=== PATIENT | male | born 2000 | race Caucasian/White ===

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

== ENCOUNTER 2022-07-19 11:47 | Emergency (ER) | payer MEDICAID, SELFPAY ==
[2022-07-19 11:47] VITALS: BP 124/81; PULSE 100; RESP 16; TEMP 37.1; O2SAT 99; BMI 20.2
--- NOTE | 2022-07-19 13:20 | EDS_ITS ---
HPI History of Present Illness Chief Complaint: Back Detail of Chief Complaint: Back pain Informant: patient Narrative Narrative: Patient presents the emergency department complaint of pain in his right upper back by the shoulder blade that start about 4 days ago. Patient does do some lifting at work but does not recall the time of injury and states the pain just kind of started. Patient states the pain is very positional. At rest if he does not move he has no pain. Pain is not pleuritic. Patient rates the pain with movement around 3-7 out of 10. Patient states he has some chronic back pain issues but is never had pain up that high. He denies recent travel or surgery. No history of PE or DVT. Prior similar symptoms: No PFSH PFSH Medical History (Updated 07/19/22 @ 14:[address] Darell Lee, ) Back pain Knee pain Home Medications cyclobenzaprine 10 mg tablet 10 mg PO TID PRN Muscle Spasm #20 TABLETS 07/19/22 [Rx Last Taken Unknown] hydrocodone-acetaminophen 5-325mg 5mg-325mg 1 tab PO Q4H PRN PRN Pain 2 days #10 TABLETS 07/19/22 [Rx Last Taken Unknown] Allergy/AdvReac Type Severity Reaction Status Date / Time latex Allergy Rash Verified 10/16/21 15:24 Social History Smoking Status: Current some day smoker tobacco type: cigarettes ROS ROS ED Review of Systems ROS Unobtainable: other Constitutional Constitutional ED: Reports lethargy; Denies chills, fever(s), sweats or weight loss Eyes Eyes: Denies blurry vision, change in vision or diplopia ENT ENT ED: Denies rhinorrhea or sore throat Cardiovascular Cardiovascular: Denies chest pain, orthopnea or racing heartbeat Respiratory/Chest Respiratory/Chest: Denies cough, dyspnea, dyspnea on exertion, orthopnea or sputum Gastrointestinal Gastrointestinal: Denies abdominal pain, diarrhea, nausea or vomiting Genitourinary Genitourinary ED: Denies dysuria, hematuria or urinary frequency Musculoskeletal Musculoskeletal: Reports back pain; Denies arthralgias, myalgias or neck pain Integumentary Denies abscess, Abrasions or rash Neurologic Neurologic: Denies headache(s) or weakness Psychiatric Psychiatric: Denies anxiety, depression or suicidal thoughts Endocrine Endocrinology: Denies polydipsia, polyphagia or polyuria Hematologic/Lymphatic Hematologic/Lymphatic: Denies easy bleeding, easy bruising or lymphadenopathy Allergic/Immunologic Allergic/Immunologic ED: Denies mouth swelling, tongue swelling or urticaria EXAM Physical Exam Const Vital Signs: 07/19/22 11:47 Temperature 98.8 F Temperature Source Temporal Pulse Rate 100 Respiratory Rate 16 Blood Pressure 124/81 H Blood Pressure Mean 95 Pulse Ox 99 Oxygen Delivery Method Room Air Positive well nourished and well developed General Appearance ED: well developed and NAD HEENT Reports TM's clear and moist mucous membranes normocephalic and atraumatic; Negative for trauma or tenderness Tympanic Membrane ED: Yes TM's clear Eyes PERRL and EOMs intact bilaterally General Eye ED: Negative for pale conjunctiva or scleral icterus Neck no lymphadenopathy, supple and no JVD General: Negative for tenderness Chest Wall inspection of chest normal and palpation of chest normal Chest: Negative for tenderness Resp normal respiratory effort and clear to auscultation bilaterally Effort and Inspection: Negative for respiratory distress or pain with movement Auscultation: Negative for rhonchi, wheezes or diminished lung sounds Cardio regular rate, regular rhythm, S1 normal heart sound, S2 normal heart sound and no murmurs Peripheral Pulses: pulses 2+ throughout GI normal to inspection, nondistended, normoactive bowel sounds, soft to palpation, non-tender, non-distended and no masses Back/Spine no CVA tenderness Back/Spine Narrative: Patient has tenderness to palpation just inferior to the right scapula that reproduces his pain. There is no evidence of erythema or warmth. There is no subcu emphysema. Breath sounds are normal bilaterally. Extremity normal to inspection General Extremety ED: Negative for edema General Extremity: Negative for edema Neuro oriented x3, CN's II-XII intact bilaterally, no sensory deficits noted and gait normal Sensorium / Orientation: awake, alert, oriented to person, oriented to place and oriented to time Motor Exam: strength 5/5 throughout and strength abnormal Psych mental status grossly normal Skin no rashes or lesions noted and no wounds MDM MDM MDM Narrative Medical decision making narrative: Patient with upper back pain x4 days. No trauma recalled. I will obtain a chest x-ray to rule out rib fracture versus pneumothorax. Chest x-ray mitral rotation unremarkable. This point I suspect musculoskeletal etiology for his pain. Patient will be started on Flexeril and a few Gardiner for pain. He will be given some work restrictions. Patient advised to follow-up with his primary care physician within next 5 to 7 days. Radiography Diagnostic Testin view chest x-ray obtained interpreted by myself as no evidence of rib fracture or pneumothorax or acute disease process. Official report from radiology pending. Discharge Plan Triage Chief Complaint: Back ED Provider: Darell Lee Dx/Rx/DC Orders Clinical Impression: Back strain Instructions: ED Back Pain (Acute or Chronic), ED Back Sprain/Strain Prescriptions: New cyclobenzaprine [cyclobenzaprine] 10 mg tablet 10 mg PO TID PRN (Reason: Muscle Spasm) Qty: 20 0RF hydrocodone-acetaminophen [hydrocodone-acetaminophen] 5-325 mg tablet 1 tab PO Q4H PRN PRN (Reason: Pain) 2 Days Qty: 10 0RF Primary Care Provider: Andre Gonzalez Referrals: Andre Gonzalez MD [Primary Care Provider] - 5-7 Days Disposition Disposition: Home, Self Care
--- NOTE | 2022-07-19 13:30 | RAD_ITS ---
STUDY: X-RAY CHEST REASON FOR EXAM: Male, 21 years old. Upper back pain TECHNIQUE: AP portable view of the chest. COMPARISON: None. FINDINGS: The lungs are clear and expanded. There is no demonstrated pleural abnormality. Normal size heart. Normal mediastinum and medina. Normal visualized pulmonary arteries. Normal visualized aortic arch and descending thoracic aorta. Normal visualized thoracic spine. Normal visualized ribs, clavicles, and shoulders. There is no demonstrated abnormality of the visualized soft tissue structures of the upper abdomen. RAD/Chest 1 View (Portable) IMPRESSION: Normal x-ray examination of the chest. Electronically Signed: Benrard Velarde MD at 14:24 EDT ,
== END 2022-07-19 14:41 | disposition home or self-care (01) ==
PROVIDERS: Emergency Provider Emergency Medicine; PCP Pediatrics; Visit Provider Emergency Medicine
DX: S39.012A Strain of muscle, fascia and tendon of lower back, initial encounter (principal); F17.210 Nicotine dependence, cigarettes, uncomplicated; X50.0XXA Overexertion from strenuous movement or load, initial encounter
CPT/HCPCS: 71045; 99282

== ENCOUNTER 2023-02-19 18:43 | Emergency (ER) | payer MEDICAID, SELFPAY ==
[2023-02-19 18:44] VITALS: BP 113/74; PULSE 87; RESP 14; TEMP 36.8; O2SAT 98; BMI 19.5
--- NOTE | 2023-02-19 19:15 | RAD_ITS ---
STUDY: X-RAY - RIGHT WRIST REASON FOR EXAM: Male, 22 years old. injury TECHNIQUE: 3 view(s) of the wrist were obtained. COMPARISON: None. FINDINGS: Normal visualized distal radius and ulna. Normal radiocarpal articulation. Normal distal radioulnar articulation. Normal carpal bones. Normal carpal articulations. Normal carpometacarpal articulation of the thumb. Normal second through fifth carpometacarpal articulations. Normal visualized metacarpal bones. The soft tissue structures are unremarkable. RAD/Wrist min 3 Views IMPRESSION: Normal x-ray examination of the wrist. Electronically Signed: Abdon Thornton MD at 20:15 EST ,
--- NOTE | 2023-02-19 19:47 | EDS_ITS ---
HPI History of Present Illness Chief Complaint: Upper Extremity Injury Informant: patient Onset/Context/Timing Onset: Today Narrative Narrative: Healthy 22-year-old male states he was working on brakes on his car when the ratchet accidentally slipped and his right hand smacked against the fender very hard. He is having pain in the ulnar aspect of his right wrist since then. He is right-hand dominant. Incidentally he states 4 days ago the exact same thing happened. [facility] Medical History (Updated 02/19/23 @ 20:[address] Bernard Celis MD) Back pain Knee pain Home Medications NK 02/19/23 [History Last Taken Unknown] Allergy/AdvReac Type Severity Reaction Status Date / Time latex Allergy Rash Verified 02/19/23 18:44 Social History Smoking Status: Current some day smoker tobacco type: cigarettes ROS ROS ED Constitutional Constitutional ED: Denies chills or fever(s) Musculoskeletal Musculoskeletal: Reports extremity pain; Denies neck pain Integumentary Denies Abrasions, rash or wounds Neurologic Neurologic: Denies paresthesias or weakness EXAM Physical Exam Const Vital Signs: 02/19/23 18:44 Temperature 98.2 F Temperature Source Temporal Pulse Rate 87 Respiratory Rate 14 Blood Pressure 113/74 Blood Pressure Mean 87 Pulse Ox 98 Oxygen Delivery Method Room Air Positive well nourished and well developed General Appearance ED: well developed and NAD Neck full ROM and supple Back/Spine normal ROM and normal to inspection Extremity Extremity Narrative: Limited range of motion of the wrist due to pain. No deformities or swelling or signs of trauma. Mild tenderness at the distal ulna, as well as the ulnar aspect of the carpus dorsally and the base of the fourth metacarpal. No on the radial side of the wrist including the snuffbox. Neuro oriented x3, no focal motor deficits and no sensory deficits noted Sensorium / Orientation: alert Psych mental status grossly normal and thought process normal Skin no wounds Rashes: no rashes MDM MDM MDM Narrative Medical decision making narrative: Right wrist x-rays 3 views my interpretation negative for acute fracture or dislocation. Radiology in agreement. Patient reassured, offered a Velcro wrist splint which he accepted, as well as a dose of Naprosyn and given a work excuse for the morning. Discharge Plan Triage Chief Complaint: Upper Extremity Injury ED Provider: Bernard Celis Dx/Rx/DC Orders Clinical Impression: Contusion of right wrist Instructions: Bone Contusion Prescriptions: No Action NK Stand Alone Forms: ED Work / School Excuse Primary Care Provider: Care Physician,Sandhya Primary Referrals: Andre Gonzalez MD [Non-Staff] - As Needed Disposition Disposition: Home, Self Care
[2023-02-19] MEDS: Naproxen 250 MG Tablet 500 MG PO (20:42)
--- OUTSIDE RECORDS SUMMARY | 2023-02-19 20:53 | XMS RPT_ITS | CCD ---
Author Name Unknown Address [address] [facility] [place], [address] [place] [address] Organization [facility] Care Team Providers Care Manager Spa Name Role Phone LOLLYRAMAKRISHNA CARLOS Unavailable Unavailable MAGDA ASHLEY Unavailable Unavailable NO PRIMARY CARE, Unavailable Unavailable Andre Holm MD Primary Care Provider Andre Holm MD Primary Care Provider Andre Holm MD Primary Care Provider Unavailable Primary Care Provider UnavailKarine Vázquez Referring Unavailable KATE MUNOZ Attending Unavailable ANDRE HOLM Primary Care Unavailable ANDRE HOLM Primary Care Unavailable WANDA HAILE Attending Unavailable DORETHA GOLDEN Referring Unavailable Karine MITCHELL Attending Unavailable ANDRE HOLM Primary Care Unavailable Karine MITCHELL Referring Unavailable KATE MUNOZ Attending Unavailable Karine MITCHELL Referring Unavailable KATE MUNOZ Attending Unavailable Karine MITCHELL Referring Unavailable KATE MUNOZ Attending Unavailable KATE MUNOZ Attending Unavailable KATE MUNOZ Referring Unavailable KATE MUNOZ Attending Unavailable Karine MITCHELL Referring Unavailable Allergies Allergy Classification Reported Allergen(s) Allergy Type Date of Onset Reaction(s) Facility (18 sources) Latex; Translations: [LATEX] Drug Intolerance 0 Rash [facility] Work Phone: Medications Current Medications Medication Drug Class(es) Dates Sig (Normalized) Sig (Original) amoxicillin 500 mg oral capsule (2 sources) Penicillin-class Antibacterial Start: 08-20-2021 End: 08-30-2021 take 1 capsule by mouth twice daily amoxicillin (POLYMOX, AMOXIL) 500 mg capsule Take 1 capsule by mouth twice daily for 10 days. 20 capsule 0 08/20/2021 08/30/2021 Active Completed/Discontinued Medications Medication Drug Class(es) Dates Sig (Normalized) Sig (Original) benzonatate 100 mg oral capsule (10 sources) Non-narcotic Antitussive Start: 01-21-2022 take 1 capsule by mouth three times daily as needed for cough benzonatate (TESSALON PERLES) 100 mg capsule Indications: Viral URI Take 1 capsule by mouth three times daily as needed for cough. 30 capsule 0 01/21/2022 Active Problems Active Problems Problem Classification Problem Date Documented Date Episodic/Chronic Anxiety disorders (17 sources) Generalized anxiety disorder; Translations: [Generalized anxiety disorder] Onset: 01-28-2018 01-28-2018 Chronic Attention-deficit, conduct, and disruptive behavior disorders (17 sources) Attention deficit hyperactivity disorder, combined type; Translations: [Attention-deficit hyperactivity disorder, combined type] Onset: 12-01-2007 04-19-2015 Chronic Fever of unknown origin (2 sources) Fever; Translations: [Fever, unspecified] Episodic Mood disorders (17 sources) Depressive disorder; Translations: [Depression] Onset: 01-28-2018 01-28-2018 Chronic Nausea and vomiting (3 sources) Nausea; Translations: [Nausea] Episodic Noninfectious gastroenteritis (1 source) Gastroenteritis; Translations: [Noninfective gastroenteritis and colitis, unspecified] Episodic Other nervous system disorders (2 sources) Other chronic pain; Translations: [Chronic pain of both knees] Onset: 12-05-2020 Chronic Other non-traumatic joint disorders (2 sources) Shoulder pain; Translations: [Pain in left shoulder] Episodic Other upper respiratory infections (7 sources) Streptococcal sore throat; Translations: [Streptococcal pharyngitis] Episodic Residual codes; unclassified (1 source) Influenza-like symptoms; Translations: [Other general symptoms and signs] Episodic Unclassified (1 source) Chronic midline low back pain without sciatica; Translations: [Chronic midline low back pain without sciatica] Onset: 12-05-2020 Unclassified (1 source) Establish Care Onset: 09-14-2022 Viral infection (3 sources) Viral disease; Translations: [Viral infection, unspecified] Episodic Past or Other Problems Problem Classification Problem Date Documented Date Episodic/Chronic Allergic reactions (17 sources) Environmental allergy; Translations: [Other allergy status, other than to drugs and biological substances] Onset: 07-25-2011 07-25-2011 Episodic Other non-traumatic joint disorders (18 sources) Pain in unspecified knee; Translations: [Pain in joint, lower leg] Onset: 12-05-2020 12-05-2020 Episodic Other non-traumatic joint disorders (8 sources) Joint laxity; Translations: [Flail joint, unspecified joint] Onset: 09-25-2022 09-25-2022 Episodic Other non-traumatic joint disorders (1 source) Flail joint, unspecified joint; Translations: [Joint laxity] Onset: 09-25-2022 Episodic Other non-traumatic joint disorders (1 source) Pain in right knee; Translations: [Chronic pain of both knees] Onset: 12-05-2020 Episodic Other non-traumatic joint disorders (1 source) Pain in left knee; Translations: [Chronic pain of both knees] Onset: 12-05-2020 Episodic Other non-traumatic joint disorders (1 source) Pain in left shoulder; Translations: [Acute pain of left shoulder] Onset: 06-08-2022 Episodic Spondylosis; intervertebral disc disorders; other back problems (19 sources) Chronic back pain ; Translations: [Dorsalgia, unspecified] Onset: 12-05-2020 12-05-2020 Episodic Results Test Name Value Interpretation Reference Range Facil ity Vital Signs Date Time Vital Sign Value Performing Clinician Yimi gould 01-18-2023 13:24-0500 Body temperature 98.4 [degF] Gloria Patten APRN.CNP Work Phone: [facility] 01-18-2023 13:24-0500 Body weight 63.32 kg Gloria Patten [employer]HER[employer] Work Phone: [facility] 01-18-2023 13:24-0500 Diastolic blood pressure 69 mm[Hg] Gloria Patten [employer]CA Work Phone: [facility] 01-18-2023 13:24-0500 Heart rate 84 /min Gloria Patten APRNGIANLUCA Work Phone: [facility] 01-18-2023 13:24-0500 Respiratory rate 18 /min Gloria Patten APRNGIANLUCA Work Phone: [facility] 01-18-2023 13:24-0500 SaO2% (BldA) [Mass fraction] 97 % Gloria Patten BUTTON PUSHER.MECHANICAL SYSTEMS ENGINEER Work Phone: [facility] 01-18-2023 13:24-0500 Systolic blood pressure 100 mm[Hg] Gloria Patten BUTTON PUSHER.MECHANICAL SYSTEMS ENGINEER Work Phone: [facility] 12-22-2022 09:08-0400 Body temperature 98.71 [degF] Shonna Praisler-Wood BUTTON PUSHER.MECHANICAL SYSTEMS ENGINEER Work Phone: [facility] 12-22-2022 09:08-0400 Body weight 61.96 kg Shonna Praisler-Wood BUT[employer] PUSHER.MECHANICAL SYSTEMS ENGINEER Work Phone: [facility] 12-22-2022 09:08-0400 Diastolic blood pressure 64 mm[Hg] Shonna Praisler-Wood BUTTON PUSHER.MECHANICAL SYSTEMS ENGINEER Work Phone: [facility] 12-22-2022 09:08-0400 Heart rate 104 /min Shonna Praisler-Wood [employer] PUSHER.MECHANICAL SYSTEMS ENGINEER Work Phone: [facility] 12-22-2022 09:08-0400 Respiratory rate 16 /min Shonna Praisler-Wood BUT[employer] PUSHER.MECHANICAL SYSTEMS ENGINEER Work Phone: [facility] 12-22-2022 09:08-0400 SaO2% (BldA) [Mass fraction] 96 % Shonna Praisler-Wood BUTTON PUSHER.MECHANICAL SYSTEMS ENGINEER Work Phone: [facility] 12-22-2022 09:08-0400 Systolic blood pressure 108 mm[Hg] Shonna Praisler-Wood BUTTON PUSHER.MECHANICAL SYSTEMS ENGINEER Work Phone: [facility] 12-08-2022 08:50-0400 Body temperature 98.6 [degF] Jakob Vicky BUT[employer] PUSHER.MECHANICAL SYSTEMS ENGINEER Work Phone: [facility] 12-08-2022 08:50-0400 Body weight 61.24 kg Jakob Perry [employer] PUSHER.MECHANICAL SYSTEMS ENGINEER Work Phone: [facility] 12-08-2022 08:50-0400 Diastolic blood pressure 76 mm[Hg] Jakob Belebury [employer]TON PUSHER.MECHANICAL SYSTEMS ENGINEER Work Phone: [facility] 12-08-2022 08:50-0400 Heart rate 93 /min Jakob Luxgama BUTTON PUSHER.MECHANICAL SYSTEMS ENGINEER Work Phone: [facility] 12-08-2022 08:50-0400 SaO2% (BldA) [Mass fraction] 98 % Jakob Perry BUT[employer] PUSHER.MECHANICAL SYSTEMS ENGINEER Work Phone: [facility] 12-08-2022 08:50-0400 Systolic blood pressure 110 mm[Hg] Jakob Perry BUTTON PUSHER.MECHANICAL SYSTEMS ENGINEER Work Phone: [facility] 11-03-2022 14:00-0400 Body temperature 97.9 [degF] Doretha Golden BUTTON PUSHER.MECHANICAL SYSTEMS ENGINEER Work Phone: [facility] 11-03-2022 14:00-0400 Body weight 62.6 kg Doretha Golden [employer] PUSHER.MECHANICAL SYSTEMS ENGINEER Work Phone: [facility] 11-03-2022 14:00-0400 Diastolic blood pressure 68 mm[Hg] Doretha Golden BUTTON PUSHER.MECHANICAL SYSTEMS ENGINEER Work Phone: [facility] 11-03-2022 14:00-0400 Heart rate 76 /min Doretha Golden BUT[employer] PUSHER.MECHANICAL SYSTEMS ENGINEER Work Phone: [facility] 11-03-2022 14:00-0400 Respiratory rate 16 /min Doretha Golden BUT[employer] PUSHER.MECHANICAL SYSTEMS ENGINEER Work Phone: [facility] 11-03-2022 14:00-0400 SaO2% (BldA) [Mass fraction] 96 % Doretha Golden BUT[employer] PUSHER.MECHANICAL SYSTEMS ENGINEER Work Phone: [facility] 11-03-2022 14:00-0400 Systolic blood pressure 110 mm[Hg] Doretha Golden BUT[employer] PUSHER.MECHANICAL SYSTEMS ENGINEER Work Phone: [facility] 07-07-2022 08:03-0400 Body temperature 98.8 [degF] Tamika Wheeler BUT[employer] PUSHER.MECHANICAL SYSTEMS ENGINEER Work Phone: [facility] 07-07-2022 08:03-0400 Body weight 63.5 kg Tamika Liam [employer] P[employer]HER.MECHANICAL SYSTEMS ENGINEER Work Phone: [facility] 07-07-2022 08:03-0400 Diastolic blood pressure 60 mm[Hg] Tamika Liam BUT[employer] PUSHER.MECHANICAL SYSTEMS ENGINEER Work Phone: [facility] 07-07-2022 08:03-0400 Heart rate 80 /min Tamika Liam [employer] PUSHER.MECHANICAL SYSTEMS ENGINEER Work Phone: [facility] 07-07-2022 08:03-0400 Respiratory rate 16 /min Tamika Liam [employer] PUSHER.MECHANICAL SYSTEMS ENGINEER Work Phone: [facility] 07-07-2022 08:03-0400 SaO2% (BldA) [Mass fraction] 97 % Tamika Liam BUT[employer] PUSHER.MECHANICAL SYSTEMS ENGINEER Work Phone: [facility] 07-07-2022 08:03-0400 Systolic blood pressure 118 mm[Hg] Tamika Liam BUT[employer] PUSHER.MECHANICAL SYSTEMS ENGINEER Work Phone: [facility] 06-08-2022 09:08-0400 Body temperature 98.29 [degF] Wanda Haile PA-C Work Phone: [facility] 06-08-2022 09:08-0400 Body weight 63.21 kg Wanda Haile PA-C Work Phone: [facility] 06-08-2022 09:08-0400 Heart rate 106 /min Wanda Haile PA-C Work Phone: [facility] 06-08-2022 09:08-0400 Respiratory rate 18 /min Wanda Haile PA-C Work Phone: [facility] 06-06-2022 14:00-0400 Body temperature 99.1 [degF] Jakob Perry BUT[employer] PUSHER.MECHANICAL SYSTEMS ENGINEER Work Phone: [facility] 06-06-2022 14:00-0400 Body weight 61.24 kg Jakob Perry BUT[employer] PUSHER.MECHANICAL SYSTEMS ENGINEER Work Phone: [facility] 06-06-2022 14:00-0400 Diastolic blood pressure 68 mm[Hg] Jakob Pendlebury [employer] PUSHER.MECHANICAL SYSTEMS ENGINEER Work Phone: [facility] 06-06-2022 14:00-0400 Heart rate 108 /min Jakob Pendlebury [employer] PUSHER.MECHANICAL SYSTEMS ENGINEER Work Phone: [facility] 06-06-2022 14:00-0400 Respiratory rate 16 /min Jakob Pendlebury [employer] PUSHER.MECHANICAL SYSTEMS ENGINEER Work Phone: [facility] 06-06-2022 14:00-0400 SaO2% (BldA) [Mass fraction] 96 % Jakob Pendlebury BUT[employer] PUSHER.MECHANICAL SYSTEMS ENGINEER Work Phone: [facility] 06-06-2022 14:00-0400 Systolic blood pressure 102 mm[Hg] Jakob Pendlebury [employer] PUSHER.MECHANICAL SYSTEMS ENGINEER Work Phone: [facility] 04-17-2022 09:59-0500 Body temperature 100.6 [degF] Shonna Praisler-Wood BUT[employer] PUSHER.MECHANICAL SYSTEMS ENGINEER Work Phone: [facility] 04-17-2022 09:59-0500 Body weight 60.78 kg Shonna Praisler-Wood BUT[employer] PUSHER.MECHANICAL SYSTEMS ENGINEER Work Phone: [facility] 04-17-2022 09:59-0500 Diastolic blood pressure 76 mm[Hg] Shonna Praisler-Wood BUT[employer] PUSHER.MECHANICAL SYSTEMS ENGINEER Work Phone: [facility] 04-17-2022 09:59-0500 Heart rate 114 /min Shonna Praisler-Wood [employer] PUSHER.MECHANICAL SYSTEMS ENGINEER Work Phone: [facility] 04-17-2022 09:59-0500 Respiratory rate 20 /min Shonna Praisler-Wood BUT[employer] PUSHER.MECHANICAL SYSTEMS ENGINEER Work Phone: [facility] 04-17-2022 09:59-0500 SaO2% (BldA) [Mass fraction] 98 % Shonna Praisler-Wood BUT[employer] PUSHER.MECHANICAL SYSTEMS ENGINEER Work Phone: [facility] 04-17-2022 09:59-0500 Systolic blood pressure 122 mm[Hg] Shonna Praisler-Wood BUT[employer] PUSHER.MECHANICAL SYSTEMS ENGINEER Work Phone: [facility] 01-21-2022 14:32-0500 Body temperature 98.2 [degF] Shonna Praisler-Wood [employer] PUSHER.MECHANICAL SYSTEMS ENGINEER Work Phone: [facility] 01-21-2022 14:32-0500 Body weight 67.04 kg Shonna Praisler-Wood BUT[employer] PUSHER.MECHANICAL SYSTEMS ENGINEER Work Phone: [facility] 01-21-2022 14:32-0500 Diastolic blood pressure 72 mm[Hg] Shonna Praisler-Wood BUT[employer] PUSHER.MECHANICAL SYSTEMS ENGINEER Work Phone: [facility] 01-21-2022 14:32-0500 Heart rate 102 /min Shonna Praisler-Wood BUT[employer] PUSHER.MECHANICAL SYSTEMS ENGINEER Work Phone: [facility] 01-21-2022 14:32-0500 Respiratory rate 21 /min Shonna Praisler-Wood BUT[employer] PUSHER.MECHANICAL SYSTEMS ENGINEER Work Phone: [facility] 01-21-2022 14:32-0500 SaO2% (BldA) [Mass fraction] 98 % Shonna Praisler-Wood BUT[employer] PUSHER.MECHANICAL SYSTEMS ENGINEER Work Phone: [facility] 01-21-2022 14:32-0500 Systolic blood pressure 114 mm[Hg] Shonna Praisler-Wood BUT[employer] PUSHER.MECHANICAL SYSTEMS ENGINEER Work Phone: [facility] 10-29-2021 18:33-0400 Body temperature 99.61 [degF] Jasper Coto MD Work Phone: [facility] 10-29-2021 18:33-0400 Body weight 63.96 kg Jasper Coto MD Work Phone: [facility] 10-29-2021 18:33-0400 Diastolic blood pressure 68 mm[Hg] Jasper Coto MD Work Phone: [facility] 10-29-2021 18:33-0400 Heart rate 98 /min Jasper Coto MD Work Phone: [facility] 10-29-2021 18:33-0400 Respiratory rate 16 /min Jasper Coto MD Work Phone: [facility] 10-29-2021 18:33-0400 SaO2% (BldA) [Mass fraction] 98 % Jasper Coto MD Work Phone: [facility] 10-29-2021 18:33-0400 Systolic blood pressure 106 mm[Hg] Jasper Coto MD Work Phone: [facility] 08-20-2021 12:14-0400 Body temperature 98.01 [degF] Gloria Patten BUT[employer] PUSHER.MECHANICAL SYSTEMS ENGINEER Work Phone: [facility] 08-20-2021 12:14-0400 Body weight 64.23 kg Gloria Patten BUTTON PUSHER.MECHANICAL SYSTEMS ENGINEER Work Phone: [facility] 08-20-2021 12:14-0400 Diastolic blood pressure 72 mm[Hg] Gloria Patten BUTTON PUSHER.MECHANICAL SYSTEMS ENGINEER Work Phone: [facility] 08-20-2021 12:14-0400 Heart rate 65 /min Gloria Patten BUTTON PUSHER.MECHANICAL SYSTEMS ENGINEER Work Phone: [facility] 08-20-2021 12:14-0400 Respiratory rate 21 /min Gloria Patten BUT[employer] PUSHER.MECHANICAL SYSTEMS ENGINEER Work Phone: [facility] 08-20-2021 12:14-0400 SaO2% (BldA) [Mass fraction] 99 % Gloria Patten BUT[employer] PUSHER.MECHANICAL SYSTEMS ENGINEER Work Phone: [facility] 08-20-2021 12:14-0400 Systolic blood pressure 118 mm[Hg] Gloria Patten BUT[employer] PUSHER.MECHANICAL SYSTEMS ENGINEER Work Phone: [facility] Encounters Encounter Date Encounter Type Care Provider Facility Start: 02-16-2023 End: 02-16-2023 [facility] Facility:[facility] Start: 02-09-2023 End: 02-09-2023 ambulatory [facility] Facility:[facility] Start: 01-19-2023 End: 01-19-2023 [facility] Facility:[facility] Start: 01-18-2023 End: 01-18-2023 ambulatory NA MITCHELL Facility:[facility] Start: 01-18-2023 End: 01-18-2023 Patient encounter procedure Gloria Patten APRN.MECHANICAL SYSTEMS ENGINEER Work Phone: [facility] Procedures Date Procedure Procedure Detail Performing Clinician Start: 01-18-2023 COVID & INFLUENZA A/ B & RSV NAAT, ROUTINE Gloria Patten APRN.MECHANICAL SYSTEMS ENGINEER Work Phone: Start: 12-08-2022 STREP A MOLECULAR (POC) Jakob Perry [employer] P[employer]HER.MECHANICAL SYSTEMS ENGINEER Work Phone: Start: 11-03-2022 STREP A MOLECULAR (POC) Charlotte Patel BUT[employer] PUSHER.MECHANICAL SYSTEMS ENGINEER Work Phone: Start: 07-07-2022 STREP A MOLECULAR (POC) Tamika Wheeler BUT[employer] PUSHER.MECHANICAL SYSTEMS ENGINEER Work Phone: Start: 04-17-2022 INFLUENZA A&B MOLECU LAR (POC) [facility] Provider Start: 04-17-2022 STREP A MOLECULAR (POC) [facility] Provider Start: 01-21-2022 STREP A MOLECULAR (POC) Gloria Patten [employer] PUSHER.MECHANICAL SYSTEMS ENGINEER Work Phone: Start: 08-20-2021 STREP A MOLECULAR (POC) Gloria Patten [employer] PUSHER.MECHANICAL SYSTEMS ENGINEER Work Phone: Start: 06-04-2020 Adult depression screening assessment Gloria Patten APRN.MECHANICAL SYSTEMS ENGINEER Work Phone: Plan of Treatment Date Care Activity Detail Author Start: 07-23-2024 Urine microalbumin profile [facility] Start: 09-15-2023 Meningococcal B Vacc ine: Consider Based On Risk (1 of 2 - Patient Seeks Protection) Meningococcal B Vaccine: Consider Based On Risk (1 of 2 - Patient Seeks Protection) [facility] Immunizations Immunization Date Immunization Notes Care Provider Ashlee villalba 01-29-2016 Human Papillomavirus 9-valent vaccine Gloria Patten APRN.MECHANICAL SYSTEMS ENGINEER Work Phone: [facility] Work Phone: 11-15-2015 influenza, injectabl e, quadrivalent, contains preservative Gloria Riosgs BUTTON PUSHER.[facility] Work Phone: [facility] Work Phone: 11-15-2015 influenza virus vacc ine, unspecified formulation Doretha Chico BUTTON PUSHER.MECHANICAL SYSTEMS ENGINEER Work Phone: [facility] 09-16-2015 Human Papillomavirus 9-valent vaccine Gloria Patten BUT[employer] PUSHER.[facility] Work Phone: [facility] Work Phone: 07-23-2014 human papilloma viru s vaccine, quadrivalent Gloria Patten BUTTON PUSHER.[facility] Work Phone: [facility] 07-23-2014 meningococcal oligosaccharide (groups A, C, Y and W-135) diphtheria toxoid conjugate vaccine (MCV4O) Gloria Patten BUTTON PUSHER.[facility] Work Phone: [facility] 07-23-2014 tetanus toxoid, redu madalyn diphtheria toxoid, and acellular pertussis vaccine, adsorbed Gloria Patten BUTTON PUSHER.[facility] Work Phone: [facility] 01-10-2013 influenza virus vacc ine, live, attenuated, for intranasal use Gloria Patten BUTTON PUSHER.[facility] Work Phone: [facility] 01-24-2011 influenza virus vacc ine, live, attenuated, for intranasal use Gloria Patten BUTTON PUSHER.[facility] Work Phone: [facility] Work Phone: 01-07-2010 influenza virus vacc ine, live, attenuated, for intranasal use Gloria Patten BUTTON PUSHER.[facility] Work Phone: [facility] Work Phone: 01-08-2009 novel influenza-H1N1 -09, all formulations Gloria Patten BUTTON PUSHER.[facility] Work Phone: [facility] 11-24-2008 influenza virus vacc ine, live, attenuated, for intranasal use Gloria Patten BUTTON PUSHER.[facility] Work Phone: [facility] Work Phone: 12-01-2007 diphtheria, tetanus toxoids and acellular pertussis vaccine Gloria Patten BUTTON PUSHER.MECHANICAL SYSTEMS ENGINEER Work Phone: [facility] Work Phone: 12-01-2007 hepatitis A vaccine, unspecified formulation Gloria Patten BUTTON PUSHER.MECHANICAL SYSTEMS ENGINEER Work Phone: [facility] Work Phone: 12-01-2007 measles, mumps and rubella virus vaccine Gloria Patten BUTTON PUSHER.MECHANICAL SYSTEMS ENGINEER Work Phone: [facility] Work Phone: 12-01-2007 poliovirus vaccine, inactivated Gloria Earline BUTTON PUSHER.[facility] Work Phone: [facility] Work Phone: 11-04-2006 hepatitis A vaccine, unspecified formulation Gloria Earline BUTTON PUSHER.MECHANICAL SYSTEMS ENGINEER Work Phone: [facility] 11-04-2006 varicella virus vaccine Jenny ica Patten BUTTON PUSHER.MECHANICAL SYSTEMS ENGINEER Work Phone: [facility] 03-17-2004 diphtheria, tetanus toxoids and acellular pertussis vaccine Gloria Patten BUTTON PUSHER.[facility] Work Phone: [facility] Work Phone: 03-17-2004 haemophilus influenz ae type b vaccine, HbOC conjugate Gloriaisa Patten BUTTON PUSHER.MECHANICAL SYSTEMS ENGINEER Work Phone: [facility] Work Phone: 12-03-2003 measles, mumps and rubella virus vaccine Gloria Patten BUTTON PUSHER.MECHANICAL SYSTEMS ENGINEER Work Phone: [facility] Work Phone: 12-03-2003 pneumococcal conjuga te vaccine, 7 valent Gloriaisa Patten BUTTON PUSHER.MECHANICAL SYSTEMS ENGINEER Work Phone: [facility] Work Phone: 12-03-2003 varicella virus vaccine Jenny ica Patten BUTTON PUSHER.MECHANICAL SYSTEMS ENGINEER Work Phone: [facility] Work Phone: 08-28-2003 diphtheria, tetanus toxoids and acellular pertussis vaccine Gloria Patten BUTTON PUSHER.MECHANICAL SYSTEMS ENGINEER Work Phone: [facility] Work Phone: 08-28-2003 haemophilus influenz ae type b vaccine, HbOC conjugate Gloria Patten BUTTON PUSHER.[facility] Work Phone: [facility] Work Phone: 08-28-2003 hepatitis B vaccine, pediatric or pediatric/adolescent dosage Gloria Patten BUTTON PUSHER.[facility] Work Phone: [facility] Work Phone: 08-28-2003 poliovirus vaccine, inactivated Gloria Patten BUTTON PUSHER.[facility] Work Phone: [facility] Work Phone: 04-06-2003 diphtheria, tetanus toxoids and acellular pertussis vaccine Gloria Patten BUTTON PUSHER.[facility] Work Phone: [facility] Work Phone: 04-06-2003 haemophilus influenz ae type b vaccine, HbOC conjugate Gloria Patten BUTTON PUSHER.[facility] Work Phone: [facility] Work Phone: 04-06-2003 pneumococcal conjuga te vaccine, 7 valent Gloria Patten BUTTON PUSHER.[facility] Work Phone: [facility] Work Phone: 04-06-2003 poliovirus vaccine, inactivated Gloria Patten BUTTON PUSHER.[facility] Work Phone: [facility] Work Phone: 01-01-2003 diphtheria, tetanus toxoids and acellular pertussis vaccine Gloria Patten BUTTON PUSHER.[facility] Work Phone: [facility] Work Phone: 01-01-2003 haemophilus influenz ae type b vaccine, HbOC conjugate Gloria Patten BUTTON PUSHER.[facility] Work Phone: [facility] Work Phone: 01-01-2003 pneumococcal conjuga te vaccine, 7 valent Gloria Patten BUTTON PUSHER.[facility] Work Phone: [facility] Work Phone: 01-01-2003 poliovirus vaccine, inactivated Gloria Patten BUTTON PUSHER.MECHANICAL SYSTEMS ENGINEER Work Phone: [facility] Work Phone: 2002 hepatitis B vaccine, pediatric or pediatric/adolescent dosage Gloria Patten BUTTON PUSHER.MECHANICAL SYSTEMS ENGINEER Work Phone: [facility] Work Phone: 2002 hepatitis B vaccine, pediatric or pediatric/adolescent dosage Gloria Patten BUTTON PUSHER.MECHANICAL SYSTEMS ENGINEER Work Phone: [facility] Work Phone: Payers Date Payer Category Payer Medicaid [id number] 2020 Medicaid [facility] MEDICAID [facility] PL[facility] MEDICAID [id number] 2020-Present [phone] [address] [place] [address] Medicaid [id number] 2020 Medicaid [id number] Unknown [id number] Social History Date Type Detail Facility Start: 2016 End: 10-31-2021 Tobacco smoking status NHIS Never smoked tobacco [facility] Start: 08-20-2021 End: 01-18-2023 Alcohol intake Current non-drinker of alcohol (finding) [facility] Start: 06-17-2015 End: 10-31-2021 Tobacco Comment 3 smokers in the home [facility] Start: 2002 Sex Assigned At Not on file [facility] Start: 08-10-2021 End: 01-21-2022 Exposure to SARS-CoV-2 (event) Not sure [facility] History of tobacco use Passive smoker [facility] Work Phone: Start: 2016 End: 09-14-2022 Tobacco use and exposure Smokeless tobacco non-user [facility] Work Phone: Start: 04-17-2022 End: 09-14-2022 Tobacco smoking status NHIS Smokes tobacco daily [facility] History of tobacco use Cigarette Smoker [facility] Start: 09-14-2022 End: 01-18-2023 Cigarettes smoked current (pack per day) - Reported 0.3 [facility] Start: 09-14-2022 End: 09-16-2022 Tobacco use panel [facility] National Score (1-10 0), lower number is lower risk 47 [facility] Start: 09-14-2022 Tobacco Comment 6 cigarettes a day [facility] Clinical Notes 07-15-2015 to 02-16-2023 Gloria Patten, SAUD.MECHANICAL SYSTEMS ENGINEER - 01/18/2023 1:29 PM Kate Hicks PT - 01/05/2023 10:38 AM Kate Hicks PT - 01/05/2023 10:03 AM ESTPatient InstructionsPatient InstructionsPatient Instructions Note Date & Type Note Facility 02-16-2023 Note HNO ID: [id number] Author: Kate Munoz PT Service: ? Author Type: Physical Therapist Type: Progress Notes Filed: 02/16/2023 5:48 PM Note Text: Episode Visit Count: 6 Therapist That Will Accept/Oversee The Plan Of Care: Kate Munoz Start of Care Date: 09/25/22 Onset Date: 09/25/08 Plan of Care Certification Date: 01/12/23 Next Certification Due Date: 02/16/23 Patient Identified by Name and Date of : Yes REHABILITATION AND SPORTS THERAPY PHYSICAL THERAPY DISCONTINUANCE OF CARE PLAN OF CARE UPDATE: Assessment: Jose Mcintosh is discontinued from Physical Therapy services due to Patient/Clinician mutual decision to discontinue current plan of care.. Patient was seen for 6 visits from Start of Care Date: 09/25/22 to 02/16/2023 and treatment included: Therapeutic exercise, Manual therapy, and Patient/Family/Caregiver Education. Goals updated 02/16/2023 Goals for Episode of Care: created on through 11/20/22 [place] in home exercise program. - Met so far Perform standing, walking, and stair negotiation without pain without Pain. - Progressed Increase ROM of LB to WNL without pain for improved QOL and ease of completing ADL's - MET Pt will be able to explained with central sensitivity is and how it is managed in 4 weeks or less - Progressing, will continue SUBJECTIVE: The colder weather can negatively affect how he feels. Overall the exercises are helpful. Pain: Pain Pain Level: 1 Pain Location: Leg - Left Pain Level 2: 0 Pain Location 2: Low Back/Lumbar Spine- Midline PROMIS Scales Higher is Better 12/28/2022 Phys Func - Score 38 (moderate dysfunction) Phys Func - Percentile 12% Self-Eff Symptom - Score 32 (Low) Self-Eff Symptom - Percentile 4% T-scores: mean of general population = 50. 5 points is clinically meaningfully difference Percentiles provide an indication of how the patient's score ranks in relation to the general population. Higher percentile rankings indicate better function/quality of life. 50th percentile is the average of the general population and indicates half of respondents had a worse score. OBJECTIVE MEASURES WITH LEVEL OF FUNCTION: Lumbar Spine AROM Lumbar Flexion: Normal Lumbar Extension: Normal Lumbar R Side-Bend: Normal Lumbar L Side-Bend: Normal Lumbar R Rotation: Normal Lumbar L Rotation: Normal LE AROM R LE AROM: WNL L LE AROM: WNL LE Flexibility Flexibility: Hamstring Flexibility R Hamstring Flexibility: WNL L Hamstring Flexibility: WNL LE Strength R LE Strength: Grossly 4+/5 L LE Strength: Grossly 4+/5 R Knee Extension (L3): 5/5 L Knee Extension (L3): 5/5 TREATMENT: Therapeutic Exercise: 1: All objective measures taken this session 2: Squats 2 x 20 with band around knees (purpke) 3: Sidestepping purple TB to fatigue x 2 sets each side 4: Standing resisted rotations pruple and pink TB x 10 each side Skilled Intervention: Patient was educated in proper exercise technique and purpose for exercises. Correct performance of therapeutic exercises was facilitated with verbal and visual cuing. Billing Therapeutic Exercise Treatment Minutes: 26 Skilled Treatment Time Minutes (timed and untimed codes): 26 Total Session Time (minutes): 26 Session Start Time : 1722 Session Stop Time : 1748 Kate Munoz PT [facility] 02-09-2023 Note HNO ID: [id number] Author: Kate Munoz PT Service: ? Author Type: Physical Therapist Type: Progress Notes Filed: 02/09/2023 5:59 PM Note Text: Episode Visit Count: 5 Therapist That Will Accept/Oversee The Plan Of Care: Kate Munoz Start of Care Date: 09/25/22 Onset Date: 09/25/08 Plan of Care Certification Date: 01/12/23 Next Certification Due Date: 02/16/23 Patient Identified by Name and Date of : Yes REHABILITATION AND SPORTS THERAPY PHYSICAL THERAPY TREATMENT NOTE ASSESSMENT: Jose Mcintosh tolerated the session with expected muscle soreness. He demonstrated difficulty with some lumbar pinching during paloff exercise. The patient will continue to benefit from ongoing skilled physical therapy for reassessment by supervising therapist. PLAN FOR NEXT VISIT: PN SUBJECTIVE: The R knee can hurt after the exercises have been performed. The back and knees feels better overall after doing PT so far. Pain: Pain Pain Level: 1 Pain Location: Knee - Right Additional Pain Information : Location 2 Pain Level 2: 0 Pain Location 2: Low Back/Lumbar Spine- Midline, Low Back/Lumbar Spine - Right OBJECTIVE MEASURES WITH LEVEL OF FUNCTION: Lumbar rotation pt reports pinching during the motion and at end range bilat Slight pinch with lumbar flexion TREATMENT: Therapeutic Exercise: 1: Standing Paloff Purple TB 2 x 10 each side 2: Squats 2 x 20 with band around knees (purpke) 3: Sidestepping purple TB to fatigue x 2 sets each side 4: Supine SLR 3# 2 x 10 each leg 5: Sidelying hip abd 2 x 10 each leg Skilled Intervention: Patient was educated in proper exercise technique and purpose for exercises. Provided written instruction for home exercise program to facilitate proper performance and compliance. Correct performance of therapeutic exercises was facilitated with verbal and visual cuing. Billing Therapeutic Exercise Treatment Minutes: 39 Skilled Treatment Time Minutes (timed and untimed codes): 39 Total Session Time (minutes): 39 Session Start Time : 1720 Session Stop Time : 1759 Kate Munoz PT [facility] 01-19-2023 Note HNO ID: [id number] Author: Gloria Patten APRN.MECHANICAL SYSTEMS ENGINEER Service: ? Author Type: Nurse Practitioner Type: Progress Notes Filed: 01/19/2023 4:07 PM Note Text: This note was created using NoteWriter. Subjective Jose Mcintosh is a 22 year old male. 22 year old male with no PMH presents for continued illness. Acute onset 3 days ago He was seen yesterday by this provider. +fatigue +body aches and joint pain +nausea +sore throat + cough +congestion Presents today stating he remains feeling sick. COVID/Influenza negative. Presents today citing that he had x 2 bouts of emesis. Requesting work note +tobacco usage +ill contacts The history is provided by the patient. No language instructor was used. URI He complains of cough. There is no chest tightness, difficulty breathing, frequent throat clearing, hemoptysis, hoarse voice, shortness of breath, sputum production or wheezing. This is a new problem. The current episode started in the past 7 days. The problem occurs constantly. Associated symptoms include appetite change, headaches, malaise/fatigue, myalgias, nasal congestion, postnasal drip, rhinorrhea, sneezing and a sore throat. Pertinent negatives include no chest pain, dyspnea on exertion, ear congestion, ear pain, fever, heartburn, orthopnea, PND, sweats, trouble swallowing or weight loss. His symptoms are aggravated by nothing. His symptoms are alleviated by nothing. His symptoms are not alleviated by anxiolytic. Risk factors for lung disease include smoking/tobacco exposure. There is no history of asthma, bronchiectasis, bronchitis, COPD, emphysema or pneumonia. PAST MEDICAL HISTORY Diagnosis Date Adopted He is a biological second cousin of his adopted mother PERS HX LEAD EXPOSURE 08/31/2006 PAST SURGICAL HISTORY Procedure Laterality Date CIRCUMCISION ALLERGIES Latex MEDICATIONS ondansetron orally disintegrating (ZOFRAN ODT) 4 mg disintegrating tablet Take 1 tablet by mouth every 8 hours as needed for nausea/vomiting. (Patient not taking: Reported on 01/19/2023) FAMILY HISTORY Problem Relation Age of Onset None Mother Asthma Father Social History Tobacco Use Smoking status: Every Day Packs/day: .25 Types: Cigarettes Passive exposure: Yes Smokeless tobacco: Never Tobacco comments: 6 cigarettes a day Vaping Use Vaping Use: current everyday user Substances: Nicotine Substance Use Topics Alcohol use: No Drug use: No Review of Systems Constitutional: Positive for activity change, appetite change, fatigue and malaise/fatigue. Negative for fever and weight loss. HENT: Positive for congestion, postnasal drip, rhinorrhea, sneezing and sore throat. Negative for ear pain, hoarse voice and trouble swallowing. Eyes: Negative for pain, redness and itching. Respiratory: Positive for cough. Negative for apnea, hemoptysis, sputum production, choking, chest tightness, shortness of breath and wheezing. Cardiovascular: Negative for chest pain, dyspnea on exertion, palpitations, leg swelling and PND. Gastrointestinal: Positive for nausea and vomiting. Negative for abdominal pain, diarrhea and heartburn. Musculoskeletal: Positive for myalgias. Negative for back pain. Skin: Negative for color change, pallor, rash and wound. Allergic/Immunologic: Negative for environmental allergies, food allergies and immunocompromised state. Neurological: Positive for headaches. Negative for dizziness and facial asymmetry. Hematological: Negative for adenopathy. Does not bruise/bleed easily. Psychiatric/Behavioral: Negative for agitation and behavioral problems. Objective BP 112/68 Pulse 90 Temp 36.6 ?C (97.9 ?F) Resp 16 Wt 63 kg (138 lb 12.8 oz) SpO2 97% BMI 20.50 kg/m? Physical Exam Vitals and nursing note reviewed. Constitutional: General: He is not in acute distress. Appearance: Normal appearance. He is not ill-appearing, toxic-appearing or diaphoretic. HENT: Head: Normocephalic and atraumatic. Right Ear: External ear normal. Left Ear: External ear normal. Nose: Congestion present. No rhinorrhea. Mouth/Throat: Mouth: Mucous membranes are moist. Pharynx: Oropharynx is clear. No oropharyngeal exudate or posterior oropharyngeal erythema. Eyes: General: Right eye: No discharge. Left eye: No discharge. Extraocular Movements: Extraocular movements intact. Conjunctiva/sclera: Conjunctivae normal. Pupils: Pupils are equal, round, and reactive to light. Cardiovascular: Rate and Rhythm: Normal rate and regular rhythm. Pulses: Normal pulses. Heart sounds: Normal heart sounds. No murmur heard. No friction rub. No gallop. Pulmonary: Effort: Pulmonary effort is normal. No respiratory distress. Breath sounds: Normal breath sounds. No stridor. No wheezing, rhonchi or rales. Chest: Chest wall: No tenderness. Abdominal: General: Abdomen is flat. There is no distension. Palpations: Abdom (more content not included)... [facility] 01-18-2023 Note HNO ID: [id number] Author: Gloria Patten APRN.MECHANICAL SYSTEMS ENGINEER Service: ? Author Type: Nurse Practitioner Type: Progress Notes Filed: 01/18/2023 1:43 PM Note Text: This note was created using [employer]. Subjective Jose Mcintosh is a 22 year old male. 22 year old male with PMH ADHD and depression presents for illness. Acute onset 3 days ago +fatigue +body aches and joint pain +nausea +sore throat + cough +congestion +tobacco usage Has used Tylenol and Motrin +ill contacts The history is provided by the patient. No language instructor was used. Flu Like Symptoms This is a new problem. The current episode started in the past 7 days. The problem occurs constantly. The problem has been gradually worsening. Associated symptoms include chills, congestion, coughing, fatigue, a fever, headaches and a sore throat. Pertinent negatives include no abdominal pain, anorexia, arthralgias, change in bowel habit, chest pain, diaphoresis, joint swelling, myalgias, nausea, neck pain, numbness, rash, swollen glands, urinary symptoms, vertigo, visual change, vomiting or weakness. Nothing aggravates the symptoms. He has tried nothing for the symptoms. The treatment provided no relief. PAST MEDICAL HISTORY Diagnosis Date Adopted He is a biological second cousin of his adopted mother PERS HX LEAD EXPOSURE 08/31/2006 PAST SURGICAL HISTORY Procedure Laterality Date CIRCUMCISION ALLERGIES Latex MEDICATIONS ondansetron orally disintegrating (ZOFRAN ODT) 4 mg disintegrating tablet Take 1 tablet by mouth every 8 hours as needed for nausea/vomiting. FAMILY HISTORY Problem Relation Age of Onset None Mother Asthma Father Social History Tobacco Use Smoking status: Every Day Packs/day: .25 Types: Cigarettes Passive exposure: Yes Smokeless tobacco: Never Tobacco comments: 6 cigarettes a day Vaping Use Vaping Use: current everyday user Substances: Nicotine Substance Use Topics Alcohol use: No Drug use: No Review of Systems Constitutional: Positive for chills, fatigue and fever. Negative for diaphoresis. HENT: Positive for congestion, postnasal drip and sore throat. Eyes: Negative for photophobia, pain, discharge, redness, itching and visual disturbance. Respiratory: Positive for cough. Negative for apnea and chest tightness. Cardiovascular: Negative for chest pain. Gastrointestinal: Negative for abdominal pain, anorexia, change in bowel habit, diarrhea, nausea and vomiting. Musculoskeletal: Negative for arthralgias, joint swelling, myalgias and neck pain. Skin: Negative for color change, pallor and rash. Allergic/Immunologic: Negative for environmental allergies, food allergies and immunocompromised state. Neurological: Positive for headaches. Negative for dizziness, vertigo, facial asymmetry, weakness and numbness. Hematological: Negative for adenopathy. Does not bruise/bleed easily. Psychiatric/Behavioral: Negative for agitation and behavioral problems. Objective BP 100/69 Pulse 84 Temp 36.9 ?C (98.4 ?F) Resp 18 Wt 63.3 kg (139 lb 9.6 oz) SpO2 97% BMI 20.62 kg/m? Physical Exam Vitals and nursing note reviewed. Constitutional: General: He is not in acute distress. Appearance: Normal appearance. He is not ill-appearing, toxic-appearing or diaphoretic. HENT: Head: Normocephalic and atraumatic. Right Ear: External ear normal. Left Ear: External ear normal. Nose: Nose normal. No congestion or rhinorrhea. Mouth/Throat: Mouth: Mucous membranes are moist. Pharynx: Oropharynx is clear. Posterior oropharyngeal erythema present. No oropharyngeal exudate. Eyes: General: Right eye: No discharge. Left eye: No discharge. Extraocular Movements: Extraocular movements intact. Conjunctiva/sclera: Conjunctivae normal. Pupils: Pupils are equal, round, and reactive to light. Cardiovascular: Rate and Rhythm: Normal rate and regular rhythm. Pulses: Normal pulses. Heart sounds: Normal heart sounds. No murmur heard. No friction rub. No gallop. Pulmonary: Effort: Pulmonary effort is normal. No respiratory distress. Breath sounds: Normal breath sounds. No stridor. No wheezing, rhonchi or rales. Chest: Chest wall: No tenderness. Abdominal: General: Abdomen is flat. There is no distension. Palpations: Abdomen is soft. There is no mass. Tenderness: There is no abdominal tenderness. There is no guarding or rebound. Hernia: No hernia is present. Musculoskeletal: General: No swelling, tenderness, deformity or signs of injury. Normal range of motion. Cervical back: Normal range of motion and neck supple. No rigidity or tenderness. Right lower leg: No edema. Left lower leg: No edema. Lymphadenopathy: Cervical: Cervical adenopathy present. Skin: General: Skin is warm and dry. Capillary Refill: Capillary refill takes less than 2 seconds. Coloration: Skin is not jaundiced or pale. Findings: No bru (more content not included)... [facility] 01-18-2023 History of Present illness Narrative This note was created using [employer]. Subjective Jose Mcintosh is a 22 year old male. 22 year old male with PMH ADHD and depression presents for illness. Acute onset 3 days ago +fatigue +body aches and joint pain +nausea +sore throat + cough +congestion +tobacco usage Has used Tylenol and Motrin +ill contacts The history is provided by the patient. No language instructor was used. Flu Like Symptoms This is a new problem. The current episode started in the past 7 days. The problem occurs constantly. The problem has been gradually worsening. Associated symptoms include chills, congestion, coughing, fatigue, a fever, headaches and a sore throat. Pertinent negatives include no abdominal pain, anorexia, arthralgias, change in bowel habit, chest pain, diaphoresis, joint swelling, myalgias, nausea, neck pain, numbness, rash, swollen glands, urinary symptoms, vertigo, visual change, vomiting or weakness. Nothing aggravates the symptoms. He has tried nothing for the symptoms. The treatment provided no relief. PAST MEDICAL HISTORY Diagnosis Date Adopted He is a biological second cousin of his adopted mother PERS HX LEAD EXPOSURE 08/31/2006 PAST SURGICAL HISTORY Procedure Laterality Date CIRCUMCISION ALLERGIES Latex MEDICATIONS ondansetron orally disintegrating (ZOFRAN ODT) 4 mg disintegrating tablet Take 1 tablet by mouth every 8 hours as needed for nausea/vomiting. FAMILY HISTORY Problem Relation Age of Onset None Mother Asthma Father Social History Tobacco Use Smoking status: Every Day Packs/day: .25 Types: Cigarettes Passive exposure: Yes Smokeless tobacco: Never Tobacco comments: 6 cigarettes a day Vaping Use Vaping Use: current everyday user Substances: Nicotine Substance Use Topics Alcohol use: No Drug use: No Review of Systems Constitutional: Positive for chills, fatigue and fever. Negative for diaphoresis. HENT: Positive for congestion, postnasal drip and sore throat. Eyes: Negative for photophobia, pain, discharge, redness, itching and visual disturbance. Respiratory: Positive for cough. Negative for apnea and chest tightness. Cardiovascular: Negative for chest pain. Gastrointestinal: Negative for abdominal pain, anorexia, change in bowel habit, diarrhea, nausea and vomiting. Musculoskeletal: Negative for arthralgias, joint swelling, myalgias and neck pain. Skin: Negative for color change, pallor and rash. Allergic/Immunologic: Negative for environmental allergies, food allergies and immunocompromised state. Neurological: Positive for headaches. Negative for dizziness, vertigo, facial asymmetry, weakness and numbness. Hematological: Negative for adenopathy. Does not bruise/bleed easily. Psychiatric/Behavioral: Negative for agitation and behavioral problems. Objective BP 100/69 Pulse 84 Temp 36.9 C (98.4 F) Resp 18 Wt 63.3 kg (139 lb 9.6 oz) SpO2 97% BMI 20.62 kg/m Physical Exam Vitals and nursing note reviewed. Constitutional: General: He is not in acute distress. Appearance: Normal appearance. He is not ill-appearing, toxic-appearing or diaphoretic. HENT: Head: Normocephalic and atraumatic. Right Ear: External ear normal. Left Ear: External ear normal. Nose: Nose normal. No congestion or rhinorrhea. Mouth/Throat: Mouth: Mucous membranes are moist. Pharynx: Oropharynx is clear. Posterior oropharyngeal erythema present. No oropharyngeal exudate. Eyes: General: Right eye: No discharge. Left eye: No discharge. Extraocular Movements: Extraocular movements intact. Conjunctiva/sclera: Conjunctivae normal. Pupils: Pupils are equal, round, and reactive to light. Cardiovascular: Rate and Rhythm: Normal rate and regular rhythm. Pulses: Normal pulses. Heart sounds: Normal heart sounds. No murmur heard. No friction rub. No gallop. Pulmonary: Effort: Pulmonary effort is normal. No respiratory distress. Breath sounds: Normal breath sounds. No stridor. No wheezing, rhonchi or rales. Chest: Chest wall: No tenderness. Abdominal: General: Abdomen is flat. There is no distension. Palpations: Abdomen is soft. There is no mass. Tenderness: There is no abdominal tenderness. There is no guarding or rebound. Hernia: No hernia is present. Musculoskeletal: General: No swelling, tenderness, deformity or signs of injury. Normal range of motion. Cervical back: Normal range of motion and neck supple. No rigidity or tenderness. Right lower leg: No edema. Left lower leg: No edema. Lymphadenopathy: Cervical: Cervical adenopathy present. Skin: General: Skin is warm and dry. Capillary Refill: Capillary refill takes less than 2 seconds. Coloration: Skin is not jaundiced or pale. Findings: No bruising, lesion or rash. Neurological: General: No focal deficit present. Mental Status: He is alert and oriented to person, place, and time. Cranial Nerves: No cranial nerve deficit. Sensory: No sensory deficit. Motor: No weakness. Coordination: Coordination normal. Gait: Gait normal. Deep Tendon Reflexes: Reflexes normal. Psychiatric: Mood and Affect: Mood normal. Behavior: Behavior normal. Thought Content: Thought content normal. Assessment and Plan ASSESSMENT/PLAN: 1. URI, acute - ICD9: 465.9, ICD10: J06.9 X 3 days - Discussed viral etiology and rationale for treatment. - Symptomatic treatment with prn analgesia - Supportive care with fluids and rest - The patient may also use OTC cough and cold meds as needed, warm salt water gargles, throat lozenges and/or OTC throat spray as needed, and nasal saline gtts and suction prn. - Follow up in 3-5 days if symptoms persist or sooner if worsening of symptoms - COVID & INFLUENZA A/B & RSV NAAT, ROUTINE Gloria Patten APRN.MECHANICAL SYSTEMS ENGINEER documented in this encounter [facility] 01-12-2023 Note HNO ID: [id number] Author: Kate Munoz PT Service: ? Author Type: Physical Therapist Type: Progress Notes Filed: 01/12/2023 10:33 AM Note Text: Episode Visit Count: 4 Therapist That Will Accept/Oversee The Plan Of Care: Kate Munoz Start of Care Date: 09/25/22 Onset Date: 09/25/08 Plan of Care Certification Date: 01/12/23 Next Certification Due Date: 02/16/23 Patient Identified by Name and Date of : Yes REHABILITATION AND SPORTS THERAPY PHYSICAL THERAPY TREATMENT NOTE ASSESSMENT: Jose Mcintosh tolerated the session with fatigue and expected muscle soreness. He demonstrated good tolerance to newly added therapeutic exercises. The patient will continue to benefit from ongoing skilled physical therapy to progress toward set goals. Current Frequency: 1x/week Duration: 4 weeks Total Number of Visits Planned: 4 Planned Treatment Interventions: Therapeutic exercise (40115), Neuromuscular re-education (63103), Manual therapy (18330), Therapeutic activities (92990), Self-intermediate management (55152), Patient/Family/Caregiver Education PLAN FOR NEXT VISIT: Core, hip, and quad strengthening SUBJECTIVE: The back is feeling a little better. Cracking the back more often. Driving for a long period of time can hurt the knees. Less catching in the body. Some wrist pain. Pain: Pain Pain Level: 0 Pain Location: Knee - Right Additional Pain Information : Location 2 Pain Level 2: 0 Pain Location 2: Low Back/Lumbar Spine- Midline, Low Back/Lumbar Spine - Right OBJECTIVE MEASURES WITH LEVEL OF FUNCTION: Some pinching in the back when climbing up a step TREATMENT: Therapeutic Exercise: 1: Standing Paloff GTB 2 x 10 each side 2: Squats x 10 3: Hooklying bridge 2 x 12 4: Supine SLR 2# 2 x 12 reps each leg 5: Sidelying hip abd 2 x 10 each leg Skilled Intervention: Patient was educated in proper exercise technique and purpose for exercises. Correct performance of therapeutic exercises was facilitated with verbal and visual cuing. Billing Therapeutic Exercise Treatment Minutes: 39 Skilled Treatment Time Minutes (timed and untimed codes): 39 Total Session Time (minutes): 39 Session Start Time : 954 Session Stop Time : 103 Kate Munoz PT [facility] 01-05-2023 Note HNO ID: [id number] Author: Kate Munoz PT Service: ? Author Type: Physical Therapist Type: Progress Notes Filed: 01/05/2023 10:47 AM Note Text: Episode Visit Count: 3 Therapist That Will Accept/Oversee The Plan Of Care: Kate Munoz Start of Care Date: 09/25/22 Onset Date: 09/25/08 Plan of Care Certification Date: 12/28/22 Next Certification Due Date: 02/01/23 Patient Identified by Name and Date of : Yes REHABILITATION AND SPORTS THERAPY PHYSICAL THERAPY TREATMENT NOTE ASSESSMENT: Jose Mcintosh tolerated the session with fatigue and expected muscle soreness. He demonstrated only minimal pain at times throughout the therapeutic exercises but this faded quickly. The patient will continue to benefit from ongoing skilled physical therapy to progress toward set goals. PLAN FOR NEXT VISIT: LE strengthening as tolerated with quad focus. Prone hamstring curls. SUBJECTIVE: Does feel that his back is better and he can do more exercise with his knees now. Pain: Pain Pain Level: 0 Pain Location: Knee - Right Description: Stiffness Additional Pain Information : Location 2 Pain Level 2: 0 Pain Location 2: Low Back/Lumbar Spine- Midline, Low Back/Lumbar Spine - Right OBJECTIVE MEASURES WITH LEVEL OF FUNCTION: TREATMENT: Therapeutic Exercise: 1: Supine quad set (on towel) x 10 holding 5 sec each leg 2: Supine SLR 2 x 10 each leg (Some discomfort and fatigue in both knees) 3: Hooklying bridge 2 x 10 4: Prone knee curl 2# x 10 each leg 5: STS x 10 6: Squat 2 x 10 (Focusing on hinging at the waist and avoiding excessive thoracic flexion) Skilled Intervention: Patient was educated in proper exercise technique and purpose for exercises. Correct performance of therapeutic exercises was facilitated with verbal and visual cuing. Billing Therapeutic Exercise Treatment Minutes: 42 Skilled Treatment Time Minutes (timed and untimed codes): 42 Total Session Time (minutes): 42 Session Start Time : 1003 Session Stop Time : 1045 Kate Munoz PT [facility] 01-05-2023 History of Present illness Narrative Program_ID:[id number] Access Code: [email or web address] URL: [email or web address] Date: 01-05-2023 Prepared By: Kate Munoz Program Notes Exercises - Supine Quad Set - 1 x daily - 7 x weekly - 4 - 8-10 - Active Straight Leg Raise with Quad Set - 1 x daily - 7 x weekly - 4 - 10 - Active Straight Leg Raise with Quad Set - 1 x daily - 7 x weekly - 4 - 10 - Supine Bridge - 1 x daily - 7 x weekly - 4 - 10 - Squat - 1 x daily - 7 x weekly - 4 - 10 Episode Visit Count: 3 Therapist That Will Accept/Oversee The Plan Of Care: Kate Munoz Start of Care Date: 09/25/22 Onset Date: 09/25/08 Plan of Care Certification Date: 12/28/22 Next Certification Due Date: 02/01/23 Patient Identified by Name and Date of : Yes REHABILITATION AND SPORTS THERAPY PHYSICAL THERAPY TREATMENT NOTE ASSESSMENT: Jose Mcintosh tolerated the session with fatigue and expected muscle soreness. He demonstrated only minimal pain at times throughout the therapeutic exercises but this faded quickly. The patient will continue to benefit from ongoing skilled physical therapy to progress toward set goals. PLAN FOR NEXT VISIT: LE strengthening as tolerated with quad focus. Prone hamstring curls. SUBJECTIVE: Does feel that his back is better and he can do more exercise with his knees now. Pain: Pain Pain Level: 0 Pain Location: Knee - Right Description: Stiffness Additional Pain Information : Location 2 Pain Level 2: 0 Pain Location 2: Low Back/Lumbar Spine- Midline, Low Back/Lumbar Spine - Right OBJECTIVE MEASURES WITH LEVEL OF FUNCTION: TREATMENT: Therapeutic Exercise: 1: Supine quad set (on towel) x 10 holding 5 sec each leg 2: Supine SLR 2 x 10 each leg (Some discomfort and fatigue in both knees) 3: Hooklying bridge 2 x 10 4: Prone knee curl 2# x 10 each leg 5: STS x 10 6: Squat 2 x 10 (Focusing on hinging at the waist and avoiding excessive thoracic flexion) Skilled Intervention: Patient was educated in proper exercise technique and purpose for exercises. Correct performance of therapeutic exercises was facilitated with verbal and visual cuing. Billing Therapeutic Exercise Treatment Minutes: 42 Skilled Treatment Time Minutes (timed and untimed codes): 42 Total Session Time (minutes): 42 Session Start Time : 1003 Session Stop Time : 1045 Kate Munoz PT documented in this encounter [facility] 12-28-2022 Note HNO ID: [id number] Author: Kate Munoz PT Service: ? Author Type: Physical Therapist Type: Progress Notes Filed: 12/28/2022 1:28 PM Note Text: Episode Visit Count: 2 Therapist That Will Accept/Oversee The Plan Of Care: Kate Munoz Start of Care Date: 09/25/22 Onset Date: 09/25/08 Plan of Care Certification Date: 12/28/22 Next Certification Due Date: 02/01/23 Patient Identified by Name and Date of : Yes REHABILITATION AND SPORTS THERAPY PHYSICAL THERAPY PROGRESS REPORT PLAN OF CARE UPDATE: Assessment: Jose Mcintosh demonstrates difficulty with rising from a chair, standing, walking, physical activities, and working. He has not progressed towards goals due to a large break in his PT care as pt did not keep scheduled follow-up appointments. Patient continues to present with impairments in ADL's, independence in exercise, strength, and symptom management that interfere with walking, bending, twisting, driving . Current prognosis is Fair due to: chronic nature of impairments, clinical presentation . Pt may benefit from a knee strengthening program and graded exercise approach with PNE He will benefit from continued skilled therapy services to meet the updated goals for this plan of care as noted below. Goals updated 12/28/2022 Goals for Episode of Care: created on through 11/20/22 [place] in home exercise program. - Met so far Perform standing, walking, and stair negotiation without pain without Pain. - Not met, will continue Increase ROM of LB to WNL without pain for improved QOL and ease of completing ADL's - Not met, will continue Pt will be able to explained with central sensitivity is and how it is managed in 4 weeks or less - Progressing, will continue Patient Goals: Decrease pain Planned Interventions, Frequency, and Duration: 1x/week, 4 weeks Total Number of Visits Planned: 4 Patient to be seen for Therapeutic exercise ([id number]), Neuromuscular re-education (86693), Manual therapy (39877), Therapeutic activities (88750), Self-intermediate management ([id number]), Patient/Family/Caregiver Education PLAN FOR NEXT VISIT: PNE and knee strengthening Classification Low Back Pain Subgroup Classification: Graded activity subgroup: recommended visits 12. Core Stabilization Subgroup Classification based on: pain with transitional movements, frequent self-manipulator or long history of manipulation Graded Activity Subgroup Classification based on: exam findings suggestive of central sensitization, diffuse non anatomic pain SUBJECTIVE: Everything hurts the legs. Working at the [employer]. 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 Throbbing in the knees. The right knee is worse and the pain is around the knee cap. Patient Goals: Decrease pain Functional Limitations: walking, bending, twisting, driving Prior Level of Function: Independent without limitations Intake Information: Prescription present Pain: Pain Pain Level: 3 Pain Location: Knee - Right Description: Throbbing Additional Pain Information : Location 2 Pain Level 2: 1 Pain Location 2: Low Back/Lumbar Spine- Midline, Low Back/Lumbar Spine - Right PROMIS Scales Higher is Better 12/28/2022 Phys Func - Score 38 (moderate dysfunction) Phys Func - Percentile 12 % Self-Eff Symptom - Score 32 (Low) Self-Eff Symptom - Percentile 4 % T-scores: mean of general population = 50. 5 points is clinically meaningfully difference Percentiles provide an indication of how the patient's score ranks in relation to the general population. Higher percentile rankings indicate better function/quality of life. 50th percentile is the average of the general population and indicates half of respondents had a worse score. OBJECTIVE MEASURES WITH LEVEL OF FUNCTION: Lumbar Spine AROM Lumbar Flexion: Normal (Worse pain in the knees bilat) Lumbar Extension: Normal Lumbar R Side-Bend: Normal Lumbar L Side-Bend: Normal LE AROM R LE AROM: WNL (No pain with any movement) L LE AROM: WNL LE Flexibility Flexibility: Hamstring Flexibility R Hamstring Flexibility: WNL L Hamstring Flexibility: WNL LE Joint Mobility R Patellar Mobility: WNL (No pain) L Patellar Mobility: WNL LE Strength R Knee Extension (L3): 4/5 L Knee Extension (L3): 5/5 Special Tests - Hip and Spine Hip and Spine Special Tests: SLR Test SLR Test: Right Negative, Left Negative TREATMENT: Therapeutic Exercise: 1: All objective measures taken this session 2: Quad set RLE supine x 4 reps then x 8 reps 3: LLE SLR x 10 4: RLE SLR (Unable due to R knee pain) Skilled Intervention: Patient was educated in proper exercise technique and purpose for exercises. Provided written instruction for home exercise program to facilitate proper performance and compliance. Correct performance of therapeutic exercises was facilitated with verbal and visual cuing. Billing Therapeutic Exerci (more content not included)... [facility] 12-22-2022 Note HNO ID: [id number] Author: Shonna Rivera APRN.MECHANICAL SYSTEMS ENGINEER Service: ? Author Type: Nurse Practitioner Type: Progress Notes Filed: 12/22/2022 9:24 AM Note Text: Subjective Cough Associated symptoms include headaches and myalgias. Pertinent negatives include no sore throat. Jose Mcintosh is a 22 year old male who presents with headache, nasal congestion, nausea and vomiting, body aches and joint pain for the past 3 days. He was seen here yesterday for same complaints, at that time he denied COVID testing, today he would like to get that done and needs a note for work. He has not had a fever at home. He has not taken any medication for his symptoms. Review of Systems HENT: Positive for congestion. Negative for sore throat. Respiratory: Positive for cough. Cardiovascular: Negative. Gastrointestinal: Positive for nausea and vomiting. Negative for abdominal pain and diarrhea. Musculoskeletal: Positive for joint pain and myalgias. Skin: Negative for rash. Neurological: Positive for headaches. BP 108/64 Pulse 104 Temp 37.1 ?C (98.7 ?F) (Tympanic) Resp 16 Wt 62 kg (136 lb 9.6 oz) SpO2 96% BMI 20.17 kg/m? PAST MEDICAL HISTORY Diagnosis Date Adopted He is a biological second cousin of his adopted mother PERS HX LEAD EXPOSURE 08/31/2006 PAST SURGICAL HISTORY Procedure Laterality Date CIRCUMCISION ALLERGIES Latex MEDICATIONS ondansetron orally disintegrating (ZOFRAN ODT) 4 mg disintegrating tablet Take 1 tablet by mouth every 8 hours as needed for nausea/vomiting. FAMILY HISTORY Problem Relation Age of Onset None Mother Asthma Father Social History Tobacco Use Smoking status: Every Day Packs/day: .25 Types: Cigarettes Passive exposure: Yes Smokeless tobacco: Never Tobacco comments: 6 cigarettes a day Vaping Use Vaping Use: current everyday user Substances: Nicotine Substance Use Topics Alcohol use: No Drug use: No Objective Physical Exam Vitals and nursing note reviewed. Constitutional: Appearance: Normal appearance. HENT: Mouth/Throat: Mouth: Mucous membranes are moist. Pharynx: Oropharynx is clear. No oropharyngeal exudate or posterior oropharyngeal erythema. Cardiovascular: Rate and Rhythm: Normal rate and regular rhythm. Heart sounds: Normal heart sounds. Pulmonary: Effort: Pulmonary effort is normal. No respiratory distress. Breath sounds: Normal breath sounds. No wheezing or rales. Abdominal: Palpations: Abdomen is soft. Tenderness: There is no abdominal tenderness. Skin: General: Skin is warm and dry. Findings: No erythema or rash. Neurological: Mental Status: He is alert. ASSESSMENT/PLAN: 1. Nausea and vomiting, unspecified vomiting type - ICD9: 787.01, ICD10: R11.2 (primary diagnosis) - ONDANSETRON 4 MG DISINTEGRATING TABLET 2. Viral illness - ICD9: 079.99, ICD10: B34.9 - Discussed viral etiology and rationale for treatment. - Symptomatic treatment with prn analgesia - Supportive care with fluids and rest - COVID AND INFLUENZA A/B NAAT, ROUTINE - Follow-up with your PCP in 3-5 days if symptoms have not improved or sooner if symptoms worsen - Discussed red flags and need for immediate medical evaluation if any occur. - Discussed supportive care treatment with fluids, rest and analgesia. - Discussed expected course of illness Shonna Rivera APRN.CNP [facility] 12-22-2022 Instructions Shonna Rivera APRN.CNP - 12/22/2022 9:24 AM EDT ASSESSMENT/PLAN: 1. Nausea and vomiting, unspecified vomiting type - ICD9: 787.01, ICD10: R11.2 (primary diagnosis) - ONDANSETRON 4 MG DISINTEGRATING TABLET 2. Viral illness - ICD9: 079.99, ICD10: B34.9 - Discussed viral etiology and rationale for treatment. - Symptomatic treatment with prn analgesia - Supportive care with fluids and rest - COVID & INFLUENZA A/B NAAT, ROUTINE - Follow-up with your PCP in 3-5 days if symptoms have not improved or sooner if symptoms worsen - Discussed red flags and need for immediate medical evaluation if any occur. - Discussed supportive care treatment with fluids, rest and analgesia. - Discussed expected course of illness Shonna Rivera APRN.CNP documented in this encounter [facility] 12-22-2022 History of Present illness Narrative Subjective Cough Associated symptoms include headaches and myalgias. Pertinent negatives include no sore throat. Jose Mcintosh is a 22 year old male who presents with headache, nasal congestion, nausea and vomiting, body aches and joint pain for the past 3 days. He was seen here yesterday for same complaints, at that time he denied COVID testing, today he would like to get that done and needs a note for work. He has not had a fever at home. He has not taken any medication for his symptoms. Review of Systems HENT: Positive for congestion. Negative for sore throat. Respiratory: Positive for cough. Cardiovascular: Negative. Gastrointestinal: Positive for nausea and vomiting. Negative for abdominal pain and diarrhea. Musculoskeletal: Positive for joint pain and myalgias. Skin: Negative for rash. Neurological: Positive for headaches. BP 108/64 Pulse 104 Temp 37.1 C (98.7 F) (Tympanic) Resp 16 Wt 62 kg (136 lb 9.6 oz) SpO2 96% BMI 20.17 kg/m PAST MEDICAL HISTORY Diagnosis Date Adopted He is a biological second cousin of his adopted mother PERS HX LEAD EXPOSURE 08/31/2006 PAST SURGICAL HISTORY Procedure Laterality Date CIRCUMCISION ALLERGIES Latex MEDICATIONS ondansetron orally disintegrating (ZOFRAN ODT) 4 mg disintegrating tablet Take 1 tablet by mouth every 8 hours as needed for nausea/vomiting. FAMILY HISTORY Problem Relation Age of Onset None Mother Asthma Father Social History Tobacco Use Smoking status: Every Day Packs/day: .25 Types: Cigarettes Passive exposure: Yes Smokeless tobacco: Never Tobacco comments: 6 cigarettes a day Vaping Use Vaping Use: current everyday user Substances: Nicotine Substance Use Topics Alcohol use: No Drug use: No Objective Physical Exam Vitals and nursing note reviewed. Constitutional: Appearance: Normal appearance. HENT: Mouth/Throat: Mouth: Mucous membranes are moist. Pharynx: Oropharynx is clear. No oropharyngeal exudate or posterior oropharyngeal erythema. Cardiovascular: Rate and Rhythm: Normal rate and regular rhythm. Heart sounds: Normal heart sounds. Pulmonary: Effort: Pulmonary effort is normal. No respiratory distress. Breath sounds: Normal breath sounds. No wheezing or rales. Abdominal: Palpations: Abdomen is soft. Tenderness: There is no abdominal tenderness. Skin: General: Skin is warm and dry. Findings: No erythema or rash. Neurological: Mental Status: He is alert. ASSESSMENT/PLAN: 1. Nausea and vomiting, unspecified vomiting type - ICD9: 787.01, ICD10: R11.2 (primary diagnosis) - ONDANSETRON 4 MG DISINTEGRATING TABLET 2. Viral illness - ICD9: 079.99, ICD10: B34.9 - Discussed viral etiology and rationale for treatment. - Symptomatic treatment with prn analgesia - Supportive care with fluids and rest - COVID & INFLUENZA A/B NAAT, ROUTINE - Follow-up with your PCP in 3-5 days if symptoms have not improved or sooner if symptoms worsen - Discussed red flags and need for immediate medical evaluation if any occur. - Discussed supportive care treatment with fluids, rest and analgesia. - Discussed expected course of illness Shonna Rivera APRN.CNP documented in this encounter [facility] 12-21-2022 Note HNO ID: [id number] Author: Layla Allison PA-C Service: ? Author Type: Physician Surgical Coder Type: Progress Notes Filed: 12/21/2022 10:00 AM Note Text: 12/21/2022 Patient presents with: Nausea AND Vomiting: X 2 days SUBJECTIVE: This is a 22 year old that is here today for Complaint(s) of nausea and vomiting x 2 days. States he had 1 episode Wednesday morning, 1 episode Wednesday morning, and 1 episode this morning. States he did eat chips/funions. Drinking fluids. Denies fever/chills, QUIROGA, diarrhea, chest pain, SOB, blood in vomit, URI symptoms, abdominal pain, black or tarry stools. Normal flatulance, testicular pain or swelling. PAST MEDICAL HISTORY Diagnosis Date Adopted He is a biological second cousin of his adopted mother PERS HX LEAD EXPOSURE 08/31/2006 ALLERGIES Latex MEDICATIONS No current outpatient medications on file. No current facility-administered medications for this visit. SOCIAL HISTORY Social History Tobacco Use Smoking status: Every Day Packs/day: .25 Types: Cigarettes Passive exposure: Yes Smokeless tobacco: Never Tobacco comments: 6 cigarettes a day Vaping Use Vaping Use: current everyday user Substances: Nicotine Substance Use Topics Alcohol use: No Drug use: No REVIEW OF SYSTEMS See HPI OBJECTIVE: BP 110/70 Pulse 98 Temp 36.9 ?C (98.4 ?F) Resp 21 Wt 61.5 kg (135 lb 9.6 oz) SpO2 100% BMI 20.02 kg/m? APPEARANCE Well appearing, alert, in no acute distress, well-hydrated, well nourished. EYES PERRLA, conjunctiva and sclera normal. EARS External ears normal, canals clear NOSE/SINUS Nares normal. Septum midline. Mucosa normal. No drainage or sinus tenderness. THROAT normal, no erythema NECK Supple, no adenopathy; thyroid symmetric, normal size, no bruits HEART RRR with normal S1 and S2, no murmurs, no gallops, no JVD appreciated LUNG clear to auscultation ABDOMEN bowel sounds normoactive, no bruits, soft, non-tender, non-distended, without organomegaly or palpable masses, no tenderness to palpation. Negative McBurney's, Madden's, Rovsings'. No rebound, rigidity guarding. ASSESSMENT/PLAN: 1. Nausea and vomiting, unspecified vomiting type - ICD9: 787.01, ICD10: R11.2 Advise liquids for 24 hours after last episode of vomiting, then bland diet, advance slowly. F/u in 48 hours if not resolving, sooner if worsening. The patient indicates understanding of these issues and agrees with the plan. Reviewed red flags and when to seek care sooner-signs of dehydration, worsening symptoms, severe abdominal pain, new fever onset reviewed with patient Layla Allison PA-C [facility] 12-08-2022 Note HNO ID: [id number] Author: Jakob Perry APRN.MECHANICAL SYSTEMS ENGINEER Service: ? Author Type: Nurse Practitioner Type: Progress Notes Filed: 12/08/2022 9:21 AM Note Text: Subjective HPI Nontoxic-appearing male presents urgent care chief complaint nausea vomiting headache sore throat. Duration of symptoms 3 days. Associated symptoms listed above. States late last week he was around his colleague who had similar signs symptoms. Presents today for evaluation. Only vomited once today. 1 time yesterday. Denies any fever body aches chills productive cough chest pain shortness of breath pleuritic pain hemoptysis abdominal pain change in bowel or bladder habits. Past medical history prescription medication use and allergies reviewed. .Patient presents with: Nausea AND Vomiting: X 3 days, headache PAST MEDICAL HISTORY Diagnosis Date Adopted He is a biological second cousin of his adopted mother PERS HX LEAD EXPOSURE 08/31/2006 PAST SURGICAL HISTORY Procedure Laterality Date CIRCUMCISION ALLERGIES Latex MEDICATIONS No prescriptions on file. FAMILY HISTORY Problem Relation Age of Onset None Mother Asthma Father Social History Tobacco Use Smoking status: Every Day Packs/day: .25 Types: Cigarettes Passive exposure: Yes Smokeless tobacco: Never Tobacco comments: 6 cigarettes a day Vaping Use Vaping Use: current everyday user Substances: Nicotine Substance Use Topics Alcohol use: No Drug use: No BP 110/76 Pulse 93 Temp 37 ?C (98.6 ?F) Wt 61.2 kg (135 lb) SpO2 98% BMI 19.94 kg/m? Review of Systems Constitutional: Negative for chills, fever and malaise/fatigue. HENT: Positive for sore throat. Negative for congestion, ear discharge, ear pain and sinus pain. Eyes: Negative for blurred vision, pain, discharge and redness. Respiratory: Negative for cough, hemoptysis, sputum production, shortness of breath, wheezing and stridor. Cardiovascular: Negative for chest pain. Gastrointestinal: Positive for nausea and vomiting. Negative for abdominal pain and diarrhea. Musculoskeletal: Negative for myalgias. Skin: Negative for itching and rash. Neurological: Positive for headaches. Negative for dizziness. Objective Physical Exam Constitutional: General: He is not in acute distress. Appearance: He is not diaphoretic. HENT: Head: Normocephalic. Jaw: No trismus, tenderness, swelling or pain on movement. Mouth/Throat: Mouth: Mucous membranes are moist. Pharynx: Oropharynx is clear. Uvula midline. Posterior oropharyngeal erythema present. No pharyngeal swelling, oropharyngeal exudate or uvula swelling. Eyes: Conjunctiva/sclera: Conjunctivae normal. Pupils: Pupils are equal, round, and reactive to light. Cardiovascular: Rate and Rhythm: Normal rate and regular rhythm. Heart sounds: Normal heart sounds. Pulmonary: Effort: Pulmonary effort is normal. No tachypnea, accessory muscle usage or respiratory distress. Breath sounds: Normal breath sounds. No stridor. No wheezing, rhonchi or rales. Abdominal: General: There is no distension. Palpations: Abdomen is soft. Tenderness: There is no abdominal tenderness. There is no guarding or rebound. Musculoskeletal: Cervical back: Normal range of motion and neck supple. No edema, erythema, rigidity or tenderness. No pain with movement. Normal range of motion. Lymphadenopathy: Cervical: No cervical adenopathy. Skin: General: Skin is warm and dry. Neurological: Mental Status: He is alert and oriented to person, place, and time. ASSESSMENT/PLAN: 1. Sore throat - ICD9: 462, ICD10: J02.9 (primary diagnosis) - COVID AND INFLUENZA A/B AND RSV NAAT, ROUTINE - STREP A MOLECULAR (POC) 2. Viral illness - ICD9: 079.99, ICD10: B34.9 - Discussed viral etiology and rationale for treatment. - Rapid strep negative in office today - Symptomatic treatment with prn analgesia - Supportive care with fluids and rest - COVID AND INFLUENZA A/B AND RSV NAAT, ROUTINE 1 episode of vomiting today. Is staying hydrated. No blood in vomit. No evidence of acute abdomen. Suspicious of viral etiology. No evidence of active infection on today's exam. Follow-up 2 to 3 days symptoms are not improving. Patient was educated on supportive therapies. emergency room for any new, worsening, or symptoms lasting longer than anticipated. The patient's clinical presentation is otherwise unremarkable at this time. Based on exam and clinical finding, the patient is stable for discharge. Plan of care was discussed with patient. Patient verbalizes understanding and agrees to plan of care. This note was generated using Cel[employer] software. It may contain errors in wording, punctuation, or spelling. Jakob Perry APRN.[facility] 12-08-2022 Instructions Jakob Perry APRN.[facility] - 12/08/2022 9:09 AM EDT How to Manage Common Symptoms Associated with COVID for Adults Fever- Fever is a temperature over 100.4 F and can occur when the body is fighting an infection. To help treat a fever: Drink plenty of fluids and stay well hydrated. Eat small amounts of easy to digest food. Rest. Your body needs rest to recover, but getting up and moving around the house frequently is a good idea. You should try to continue doing your normal daily activities (bathing, toileting, grooming, cooking), though you will probably feel tired, and need to rest often. Avoid any heavy activity or exercise, as this will increase your body temperature. Dress in light clothing and stay covered in a light sheet. Keep the room temperature cool. Take a slightly warm (not cold or cool) bath, or apply damp washcloths to the forehead and wrists. Cough- Cough is a common symptom associated with COVID and can be bothersome. To help treat a cough: Stay well hydrated. Try warm water or tea with lemon and/or honey to help soothe the cough. Use a humidifier to add moisture to the air. Try a product with menthol, like a cough drop or a rub for your chest such as Vicks, which can help reduce cough. Try cough drops. Avoid smoking and other strong odors or perfumes. Try breathing exercises to keep your lungs open and clear. Take a big deep breath through your nose and hold for 5 seconds before slowly releasing. Repeat frequently, while you are awake. Congestion- Runny nose or nasal congestion can occur with COVID. Treatment can help relieve symptoms: Try OTC nasal saline spray, or nasal saline rinse to relieve mucus congestion. Nasal strips can help keep nasal passages open, to increase airflow. Elevating your head with an extra pillow in bed can help reduce congestion. Using a humidifier can increase moisture in the air, and make breathing easier. Sore Throat- Another common symptom with COVID, can be managed at home by: Stay well hydrated. Gargle with salt water - mix teaspoon salt with 1 cup of warm water and gargle. This helps to loosen mucus in the back of the throat and may reduce discomfort. Try ice chips, popsicles or lozenges to soothe the throat. Nausea/Vomiting/Diarrhea- These are common symptoms, and staying hydrated is most important. If you are nauseous or vomiting, start with small sips of water every 10-15 minutes and increase as tolerated. You can try sucking an ice cube too. If tolerating, you can try pedialyte or Gatorade, or flat sprite or álvaro-stella. Start slowly and increase as you are able to. Instead of meals, try smaller, more frequent snacks. Try eating bland foods like crackers, toast, rice, and applesauce. Avoid spicy, greasy or fried foods and dairy containing foods. Even if you aren't feeling hungry due to lack of smell or taste, it is important to try to take in some food when you are able. After drinking and eating, rest in an upright position for up to two hours as needed to help decrease nauseous feelings. Try closing your eyes, avoid moving and watching TV. Avoid strong odors that can make you feel more nauseated. When to seek emergency medical attention Look for emergency warning signs for COVID-19. If having any of these symptoms, seek emergency medical care immediately: Trouble breathing Persistent pain or pressure in the chest New confusion Inability to wake or stay awake Bluish lips or face *This list is not all possible symptoms. Please call your medical provider for any other symptoms that are severe or concerning to you. documented in this encounter [facility] 12-08-2022 History of Present illness Narrative Subjective HPI Nontoxic-appearing male presents urgent care chief complaint nausea vomiting headache sore throat. Duration of symptoms 3 days. Associated symptoms listed above. States late last week he was around his colleague who had similar signs symptoms. Presents today for evaluation. Only vomited once today. 1 time yesterday. Denies any fever body aches chills productive cough chest pain shortness of breath pleuritic pain hemoptysis abdominal pain change in bowel or bladder habits. Past medical history prescription medication use and allergies reviewed. .Patient presents with: Nausea & Vomiting: X 3 days, headache PAST MEDICAL HISTORY Diagnosis Date Adopted He is a biological second cousin of his adopted mother PERS HX LEAD EXPOSURE 08/31/2006 PAST SURGICAL HISTORY Procedure Laterality Date CIRCUMCISION ALLERGIES Latex MEDICATIONS No prescriptions on file. FAMILY HISTORY Problem Relation Age of Onset None Mother Asthma Father Social History Tobacco Use Smoking status: Every Day Packs/day: .25 Types: Cigarettes Passive exposure: Yes Smokeless tobacco: Never Tobacco comments: 6 cigarettes a day Vaping Use Vaping Use: current everyday user Substances: Nicotine Substance Use Topics Alcohol use: No Drug use: No BP 110/76 Pulse 93 Temp 37 C (98.6 F) Wt 61.2 kg (135 lb) SpO2 98% BMI 19.94 kg/m Review of Systems Constitutional: Negative for chills, fever and malaise/fatigue. HENT: Positive for sore throat. Negative for congestion, ear discharge, ear pain and sinus pain. Eyes: Negative for blurred vision, pain, discharge and redness. Respiratory: Negative for cough, hemoptysis, sputum production, shortness of breath, wheezing and stridor. Cardiovascular: Negative for chest pain. Gastrointestinal: Positive for nausea and vomiting. Negative for abdominal pain and diarrhea. Musculoskeletal: Negative for myalgias. Skin: Negative for itching and rash. Neurological: Positive for headaches. Negative for dizziness. Objective Physical Exam Constitutional: General: He is not in acute distress. Appearance: He is not diaphoretic. HENT: Head: Normocephalic. Jaw: No trismus, tenderness, swelling or pain on movement. Mouth/Throat: Mouth: Mucous membranes are moist. Pharynx: Oropharynx is clear. Uvula midline. Posterior oropharyngeal erythema present. No pharyngeal swelling, oropharyngeal exudate or uvula swelling. Eyes: Conjunctiva/sclera: Conjunctivae normal. Pupils: Pupils are equal, round, and reactive to light. Cardiovascular: Rate and Rhythm: Normal rate and regular rhythm. Heart sounds: Normal heart sounds. Pulmonary: Effort: Pulmonary effort is normal. No tachypnea, accessory muscle usage or respiratory distress. Breath sounds: Normal breath sounds. No stridor. No wheezing, rhonchi or rales. Abdominal: General: There is no distension. Palpations: Abdomen is soft. Tenderness: There is no abdominal tenderness. There is no guarding or rebound. Musculoskeletal: Cervical back: Normal range of motion and neck supple. No edema, erythema, rigidity or tenderness. No pain with movement. Normal range of motion. Lymphadenopathy: Cervical: No cervical adenopathy. Skin: General: Skin is warm and dry. Neurological: Mental Status: He is alert and oriented to person, place, and time. ASSESSMENT/PLAN: 1. Sore throat - ICD9: 462, ICD10: J02.9 (primary diagnosis) - COVID & INFLUENZA A/B & RSV NAAT, ROUTINE - STREP A MOLECULAR (POC) 2. Viral illness - ICD9: 079.99, ICD10: B34.9 - Discussed viral etiology and rationale for treatment. - Rapid strep negative in office today - Symptomatic treatment with prn analgesia - Supportive care with fluids and rest - COVID & INFLUENZA A/B & RSV NAAT, ROUTINE 1 episode of vomiting today. Is staying hydrated. No blood in vomit. No evidence of acute abdomen. Suspicious of viral etiology. No evidence of active infection on today's exam. Follow-up 2 to 3 days symptoms are not improving. Patient was educated on supportive therapies. emergency room for any new, worsening, or symptoms lasting longer than anticipated. The patient's clinical presentation is otherwise unremarkable at this time. Based on exam and clinical finding, the patient is stable for discharge. Plan of care was discussed with patient. Patient verbalizes understanding and agrees to plan of care. This note was generated using Cel[employer] software. It may contain errors in wording, punctuation, or spelling. Jakob Perry APRN.MECHANICAL SYSTEMS ENGINEER documented in this encounter [facility] 11-03-2022 Note HNO ID: [id number] Author: Doretha Golden APRN.[facility] Service: ? Author Type: Nurse Practitioner Type: Progress Notes Filed: 11/03/2022 2:33 PM Note Text: Subjective HPI HPI Jose Mcintosh is a 22 year old male who presents today for CC of st, cough. This started 2 days ago. Has tried nothing for relief. Symptoms are worsened by nothing. Risk factors sick exposures recently. smoker. .Patient presents with: Sore Throat: x 2 days PAST MEDICAL HISTORY Diagnosis Date Adopted He is a biological second cousin of his adopted mother PERS HX LEAD EXPOSURE 08/31/2006 PAST SURGICAL HISTORY Procedure Laterality Date CIRCUMCISION ALLERGIES Latex MEDICATIONS No prescriptions on file. FAMILY HISTORY Problem Relation Age of Onset None Mother Asthma Father Social History Tobacco Use Smoking status: Every Day Packs/day: .25 Types: Cigarettes Passive exposure: Yes Smokeless tobacco: Never Tobacco comments: 6 cigarettes a day Vaping Use Vaping Use: current everyday user Substances: Nicotine Substance Use Topics Alcohol use: No Drug use: No Review of Systems Constitutional: Negative for fever. HENT: Positive for congestion and sore throat. Negative for ear pain and nosebleeds. Respiratory: Positive for cough. Negative for shortness of breath and wheezing. Musculoskeletal: Negative for neck pain. Skin: Negative for itching and rash. Objective Physical Exam Constitutional: General: He is not in acute distress. Appearance: He is not toxic-appearing or diaphoretic. HENT: Head: Normocephalic and atraumatic. Mouth/Throat: Lips: [place]. Mouth: Mucous membranes are moist. Pharynx: Uvula midline. Posterior oropharyngeal erythema present. Cardiovascular: Rate and Rhythm: Normal rate and regular rhythm. Heart sounds: Normal heart sounds, S1 normal and S2 normal. Pulmonary: Effort: Pulmonary effort is normal. Breath sounds: Normal breath sounds. Lymphadenopathy: Cervical: Cervical adenopathy present. Right cervical: Superficial cervical adenopathy present. Left cervical: Superficial cervical adenopathy present. Neurological: Mental Status: He is alert and oriented to person, place, and time. Gait: Gait is intact. ASSESSMENT/PLAN: 1. Sore throat - ICD9: 462, ICD10: J02.9 - suspect viral - Group A strep molecular testing negative - Discussed supportive care treatment with fluids, rest and analgesia. - The patient should follow up in 3-5 days if symptoms persist or worsen - Call back if drooling, increased temperature, symptoms of dehydration and/or still sick in one week - STREP A MOLECULAR (POC) Doretha Golden APRN.CNP [facility] 11-03-2022 History of Present illness Narrative Subjective HPI HPI Jose Mcintosh is a 22 year old male who presents today for CC of st, cough. This started 2 days ago. Has tried nothing for relief. Symptoms are worsened by nothing. Risk factors sick exposures recently. smoker. .Patient presents with: Sore Throat: x 2 days PAST MEDICAL HISTORY Diagnosis Date Adopted He is a biological second cousin of his adopted mother PERS HX LEAD EXPOSURE 08/31/2006 PAST SURGICAL HISTORY Procedure Laterality Date CIRCUMCISION ALLERGIES Latex MEDICATIONS No prescriptions on file. FAMILY HISTORY Problem Relation Age of Onset None Mother Asthma Father Social History Tobacco Use Smoking status: Every Day Packs/day: .25 Types: Cigarettes Passive exposure: Yes Smokeless tobacco: Never Tobacco comments: 6 cigarettes a day Vaping Use Vaping Use: current everyday user Substances: Nicotine Substance Use Topics Alcohol use: No Drug use: No Review of Systems Constitutional: Negative for fever. HENT: Positive for congestion and sore throat. Negative for ear pain and nosebleeds. Respiratory: Positive for cough. Negative for shortness of breath and wheezing. Musculoskeletal: Negative for neck pain. Skin: Negative for itching and rash. Objective Physical Exam Constitutional: General: He is not in acute distress. Appearance: He is not toxic-appearing or diaphoretic. HENT: Head: Normocephalic and atraumatic. Mouth/Throat: Lips: [place]. Mouth: Mucous membranes are moist. Pharynx: Uvula midline. Posterior oropharyngeal erythema present. Cardiovascular: Rate and Rhythm: Normal rate and regular rhythm. Heart sounds: Normal heart sounds, S1 normal and S2 normal. Pulmonary: Effort: Pulmonary effort is normal. Breath sounds: Normal breath sounds. Lymphadenopathy: Cervical: Cervical adenopathy present. Right cervical: Superficial cervical adenopathy present. Left cervical: Superficial cervical adenopathy present. Neurological: Mental Status: He is alert and oriented to person, place, and time. Gait: Gait is intact. ASSESSMENT/PLAN: 1. Sore throat - ICD9: 462, ICD10: J02.9 - suspect viral - Group A strep molecular testing negative - Discussed supportive care treatment with fluids, rest and analgesia. - The patient should follow up in 3-5 days if symptoms persist or worsen - Call back if drooling, increased temperature, symptoms of dehydration and/or still sick in one week - STREP A MOLECULAR (POC) Doretha Golden APRN.MECHANICAL SYSTEMS ENGINEER documented in this encounter [facility] 09-25-2022 Note HNO ID: [id number] Author: Kate Munoz PT Service: ? Author Type: Physical Therapist Type: Progress Notes Filed: 09/25/2022 11:25 AM Note Text: Episode Visit Count: 1 Therapist That Will Accept/Oversee The Plan Of Care: Kate Munoz Onset Date: 09/25/08 Plan of Care Certification Date: 09/25/22 Next Certification Due Date: 10/30/22 Patient Identified by Name and Date of : Yes REHABILITATION AND SPORTS THERAPY PHYSICAL THERAPY EVALUATION PLAN OF CARE: Assessment: Jose Mcintosh presents with chief complaint of LBP and B knee pain that interferes with walking, bending, twisting . He presents with impairments in independence in exercise, overall function, and symptom management. Patient did not complete the PROMIS? (Patient Reported Outcome Measures Information System). Prognosis for therapy is Fair due to: chronic nature of impairments, clinical presentation . Pt demonstrates pain that may improve from a graded exercise approach with PNE. He will benefit from skilled therapy services to meet the goals established for this plan of care as noted below. Classification Low Back Pain Subgroup Classification: Graded activity subgroup: recommended visits 12. Core Stabilization Subgroup Classification based on: pain with transitional movements, frequent self-manipulator or long history of manipulation Graded Activity Subgroup Classification based on: exam findings suggestive of central sensitization, diffuse non anatomic pain Goals for Episode of Care: created on through 11/20/22 [place] in home exercise program. Perform standing, walking, and stair negotiation without pain without pain. Increase ROM of LB to WNL without pain for improved QOL and ease of completing ADL's Pt will be able to explained with central sensitivity is and how it is managed in 4 weeks or less Planned Interventions, Frequency, and Duration: Current Frequency: 1x/week Duration: 6 weeks Total Number of Visits Planned: 6 Planned Treatment Interventions: Therapeutic exercise (20066), Neuromuscular re-education (75840), Manual therapy (64424), Therapeutic activities (56865), Self-intermediate management (72999), Patient/Family/Caregiver Education PLAN FOR NEXT VISIT: PNE education for sensitive nerves Patient demonstrates good understanding of plan of care and treatment. The above goals and plan of care were discussed and agreed upon by patient/family. SUBJECTIVE: Knee and back pain since 7. Pain in most movements causes pain. Sitting hunched a little bit hurts. No injuries to the back. No radiation of symptoms down the legs. Pain in the medial sides of the knee to the back. Walkign too much then he can collapse. No injuries to the knees. The knee can give out and last time was 3 weeks ago. Throbbing with walking. Stress can make the pain worse. Has always had stomach issues. Has maybe had only 1 QUIROGA his entire life. turning over in bed hurts. Functional Limitations: walking, bending, twisting Prior Level of Function: Independent without limitations Intake Information: Prescription present Pain: Pain Pain Level: 0 Pain Location: Knee - Left, Knee - Right Additional Pain Information : Location 2 Pain Level 2: 4 Pain Location 2: Low Back/Lumbar Spine- Midline, Low Back/Lumbar Spine - Right Description 2: Throbbing, Sharp Frequency 2: Continuous PROMIS Scales T-scores: mean of general population = 50. 5 points is clinically meaningfully difference Percentiles provide an indication of how the patient's score ranks in relation to the general population. Higher percentile rankings indicate better function/quality of life. 50th percentile is the average of the general population and indicates half of respondents had a worse score. OBJECTIVE MEASURES WITH LEVEL OF FUNCTION: Lumbar Spine AROM Lumbar Flexion: Normal (Pain upon returning to standing) Lumbar Extension: Normal, Increased pain Lumbar R Side-Bend: Minimal limitation, Normal Lumbar L Side-Bend: Minimal limitation, Normal Lumbar R Rotation: Normal, Increased pain Lumbar L Rotation: Normal, Increased pain LE AROM Tested?: Yes LE AROM R LE AROM: WNL L LE AROM: WNL LE Flexibility Flexibility: Hamstring Flexibility R Hamstring Flexibility: WNL (at end range pain is brought on throughout the entire knee per pt report) L Hamstring Flexibility: WNL (at end range pain is brought on throughout the entire knee per pt report) LE Strength R LE Strength: Grossly 4+/5 (Non anatomical pain reported throughout strength testing) L LE Strength: Grossly 4+/5 (Non anatomical pain reported throughout strength testing) Special Tests - Hip and Spine Hip and Spine Special Tests: SLR Test SLR Test: Right Negative, Left Negative Education: Education Learning Preferences: Demonstration, Explanation, Performance, Printed Materials Barriers: None Learning/educational needs: Plan of Care, Home ex (more content not included)... [facility] 09-25-2022 History of Present illness Narrative Episode Visit Count: 1 Therapist That Will Accept/Oversee The Plan Of Care: Kate Munoz Onset Date: 09/25/08 Plan of Care Certification Date: 09/25/22 Next Certification Due Date: 10/30/22 Patient Identified by Name and Date of : Yes REHABILITATION AND SPORTS THERAPY PHYSICAL THERAPY EVALUATION PLAN OF CARE: Assessment: Jose Mcintosh presents with chief complaint of LBP and B knee pain that interferes with walking, bending, twisting . He presents with impairments in independence in exercise, overall function, and symptom management. Patient did not complete the PROMIS (Patient Reported Outcome Measures Information System). Prognosis for therapy is Fair due to: chronic nature of impairments, clinical presentation . Pt demonstrates pain that may improve from a graded exercise approach with PNE. He will benefit from skilled therapy services to meet the goals established for this plan of care as noted below. Classification Low Back Pain Subgroup Classification: Graded activity subgroup: recommended visits 12. Core Stabilization Subgroup Classification based on: pain with transitional movements, frequent self-manipulator or long history of manipulation Graded Activity Subgroup Classification based on: exam findings suggestive of central sensitization, diffuse non anatomic pain Goals for Episode of Care: created on through 11/20/22 [place] in home exercise program. Perform standing, walking, and stair negotiation without pain without pain. Increase ROM of LB to WNL without pain for improved QOL and ease of completing ADL's Pt will be able to explained with central sensitivity is and how it is managed in 4 weeks or less Planned Interventions, Frequency, and Duration: Current Frequency: 1x/week Duration: 6 weeks Total Number of Visits Planned: 6 Planned Treatment Interventions: Therapeutic exercise (97875), Neuromuscular re-education (22728), Manual therapy (81495), Therapeutic activities (44966), Self-intermediate management (82997), Patient/Family/Caregiver Education PLAN FOR NEXT VISIT: PNE education for sensitive nerves Patient demonstrates good understanding of plan of care and treatment. The above goals and plan of care were discussed and agreed upon by patient/family. SUBJECTIVE: Knee and back pain since 7. Pain in most movements causes pain. Sitting hunched a little bit hurts. No injuries to the back. No radiation of symptoms down the legs. Pain in the medial sides of the knee to the back. Walkign too much then he can collapse. No injuries to the knees. The knee can give out and last time was 3 weeks ago. Throbbing with walking. Stress can make the pain worse. Has always had stomach issues. Has maybe had only 1 QUIROGA his entire life. turning over in bed hurts. Functional Limitations: walking, bending, twisting Prior Level of Function: Independent without limitations Intake Information: Prescription present Pain: Pain Pain Level: 0 Pain Location: Knee - Left, Knee - Right Additional Pain Information : Location 2 Pain Level 2: 4 Pain Location 2: Low Back/Lumbar Spine- Midline, Low Back/Lumbar Spine - Right Description 2: Throbbing, Sharp Frequency 2: Continuous PROMIS Scales T-scores: mean of general population = 50. 5 points is clinically meaningfully difference Percentiles provide an indication of how the patient's score ranks in relation to the general population. Higher percentile rankings indicate better function/quality of life. 50th percentile is the average of the general population and indicates half of respondents had a worse score. OBJECTIVE MEASURES WITH LEVEL OF FUNCTION: Lumbar Spine AROM Lumbar Flexion: Normal (Pain upon returning to standing) Lumbar Extension: Normal, Increased pain Lumbar R Side-Bend: Minimal limitation, Normal Lumbar L Side-Bend: Minimal limitation, Normal Lumbar R Rotation: Normal, Increased pain Lumbar L Rotation: Normal, Increased pain LE AROM Tested?: Yes LE AROM R LE AROM: WNL L LE AROM: WNL LE Flexibility Flexibility: Hamstring Flexibility R Hamstring Flexibility: WNL (at end range pain is brought on throughout the entire knee per pt report) L Hamstring Flexibility: WNL (at end range pain is brought on throughout the entire knee per pt report) LE Strength R LE Strength: Grossly 4+/5 (Non anatomical pain reported throughout strength testing) L LE Strength: Grossly 4+/5 (Non anatomical pain reported throughout strength testing) Special Tests - Hip and Spine Hip and Spine Special Tests: SLR Test SLR Test: Right Negative, Left Negative Education: Education Learning Preferences: Demonstration, Explanation, Performance, Printed Materials Barriers: None Learning/educational needs: Plan of Care, Home exercise program, Health promotion Education Provided: Yes, see treatment interventions for education provided Education Provided To: Patient Education Mode/Type: Demonstration, Explanation/Discussion, Literature/Printed Materials, Performance Response to Education/Teach Back: States/Identifies, Return Demonstration TREATMENT: PT Treatment Interventions: Therapeutic Exercise, Self-Alf Management Evaluation Therapeutic Exercise: 1: Discussed therapy goals, exam findings, purpose of the HEP. 2: Hooklying RA activation (PPT) x 10 (Given for home) Skilled Intervention: Patient was educated in proper exercise technique and purpose for exercises. Provided written instruction for home exercise program to facilitate proper performance and compliance. Correct performance of therapeutic exercises was facilitated with verbal and visual cuing. Self-Alf Management: 1: Discussed reaching out to a therapist or counselor to discussed topics that give pt anxiety to help further treat chrnoic pain issues alongside PT.Pain Intro: Patient introduced to the topic of pain neuroscience education and that improving knowledge of how pain works promotes improved recovery and rehabilitation. Current knowledge and understanding of patient on pain related topics was explored to create baseline. Skilled Intervention: Skilled judgment in the selection of proper modification for activity of daily living/home management based on clinical presentation, deficits, and needs. Billing * Evaluation Moderate Complexity: 1 Unit Therapeutic Exercise Treatment Minutes: 12 Self-Care/Home Management Treatment Minutes: 15 Total Treatment Time Minutes (timed/untimed): 60 Session Start Time : 1014 Session Stop Time : 1114 Kate Munoz PT documented in this encounter [facility] 09-16-2022 Note HNO ID: [id number] Author: Jasper Coto MD Service: ? Author Type: Physician Type: Progress Notes Filed: 09/16/2022 7:44 AM Note Text: Patient presents with: Ear Pain: left ear x 2 days HPI: Feeling left ear pain for 2 days. He cleaned his ear out with a metal ear tool the day before symptoms started. He did not have pain during the cleaning. Positive symptoms: left meatus Ear pain and swelling, loss of hearing, clear otorrhea, ear symptoms kept him up last night Negative symptoms: Cough, Sore throat, Nasal Congestion, Rhinorrhea, Fever, OTC: Tylenol MEDICATIONS: No current outpatient medications on file. No current facility-administered medications for this visit. ALLERGIES: ALLERGIES Allergen Reactions Latex Rash VITALS: BP 116/68 Pulse 104 Temp 37.1 ?C (98.7 ?F) Resp 16 Wt 62.1 kg (137 lb) SpO2 99% BMI 20.23 kg/m? PHYSICAL EXAM: GEN: alert, no acute distress, somewhat anxious HEENT: PERRL, EOMI, conjunctiva with trace injection Ears: Right canal clear. RTM without erythema, bulge, or effusion. Left canal edematous and tender to exam; view obstructed by crust and debris. Throat: moist mucous membranes, no erythema, no exudate Neck: supple, no thyromegaly, no lymphadenopathy HEART: regular rate and rhythm, no murmurs LUNGS: clear to auscultation, no wheezes or crackles, no increased WOB ASSESSMENT/PLAN: 1. Acute otitis externa of left ear, unspecified type - ICD9: 380.10, ICD10: H60.502 Discussed inability to examine middle ear. Unlikely OM with perforation since he had no discomfort during canal instrumentation. He prefers topical antibiotic without oral co-administration. Advised having only qualified medical records clerk insert objects into his ear canals. - CIPROFLOXACIN 0.3 %-DEXAMETHASONE 0.1 % EAR DROPS,SUSPENSION Follow up if not improving in the next couple days. Jasper Coto MD [facility] 09-14-2022 Note HNO ID: [id number] Author: Karine Mitchell PA-C Service: ? Author Type: Physician Surgical Coder Type: Progress Notes Filed: 09/14/2022 3:59 PM Note Text: 21 year old male with c/o requesting to establish as adult patient Having chronic back and knee pain. Needs to figure out if able to work . 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 Working at [employer]: looking to work on [employer]. Identifies pain in knees L>R chronically. Left knee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 Positive for headaches. BP 114/72 Pulse 102 Temp 36.8 C (98.2 F) Resp 21 Wt 67 kg (147 lb 12.8 oz) SpO2 98% BMI 21.83 kg/m PAST MEDICAL HISTORY Diagnosis Date Adopted He is a biological second cousin of his adopted mother PERS HX LEAD EXPOSURE 08/31/2006 PAST SURGICAL HISTORY Procedure Laterality Date CIRCUMCISION ALLERGIES Latex MEDICATIONS No prescriptions on file. FAMILY HISTORY Problem Relation Age of Onset None Mother Asthma Father Social History Tobacco Use Smoking status: Never Passive exposure: Yes Smokeless tobacco: Never Tobacco comments: 3 smokers in the home Vaping Use Vaping Use: current everyday user Substances: Nicotine Substance Use Topics Alcohol use: No Drug use: No Objective Physical Exam Vitals and nursing note reviewed. Constitutional: Appearance: Normal appearance. HENT: Right Ear: Tympanic membrane, ear canal and external ear normal. Left Ear: Tympanic membrane, ear canal and external ear normal. Nose: Nose normal. Mouth/Throat: Mouth: Mucous membranes are moist. Pharynx: Oropharynx is clear. Uvula midline. Posterior oropharyngeal erythema present. No oropharyngeal exudate. Cardiovascular: Rate and Rhythm: Normal rate and regular rhythm. Heart sounds: Normal heart sounds. Pulmonary: Effort: Pulmonary effort is normal. No respiratory distress. Breath sounds: Normal breath sounds. No wheezing or rales. Musculoskeletal: Cervical back: Neck supple. Lymphadenopathy: Cervical: No cervical adenopathy. Skin: General: Skin is warm and dry. Findings: No erythema or rash. Neurological: Mental Status: He is alert. ASSESSMENT/PLAN: 1. Sore throat - ICD9: 462, ICD10: J02.9 (primary diagnosis) - suspect viral - Alere Strep Test NEGATIVE, no culture pending - Discussed supportive care treatment with fluids, rest and analgesia. - STREP A MOLECULAR (POC) 2. Viral URI - ICD9: 465.9, ICD10: J06.9 - Discussed viral etiology and rationale for treatment. - Symptomatic treatment with prn analgesia - Supportive care with fluids and rest - COVID WITH FLUA+B, ROUTINE - Follow-up with your PCP in 3-5 days if symptoms have not improved or sooner if symptoms worsen - Discussed red flags and need for immediate medical evaluation if any occur. - Discussed supportive care treatment with fluids, rest and analgesia. - Discussed expected course of illness Shonna Rivera APRN.MAYANK documented in this encounter [facility] 10-30-2021 Miscellaneous Notes Left message for patient with negative results.Shanika Coreas LPN Negative for covid please notify. Thank you documented in this encounter [facility] 10-29-2021 History of Present illness Narrative Patient presents with: Cough: fatigue and vomiting x 2 days HPI: Feeling sick for 2-3 days. Positive symptoms: Cough, Nausea, abdominal pain, Vomiting, sore throat, fatigue, baseline rhinorrhea, resolved initial Headache, Negative symptoms: Shortness of breath, Diarrhea, hematemesis, OTC: Tylenol Had COVID illness December 2020. MEDICATIONS: No current outpatient medications on file. No current facility-administered medications for this visit. ALLERGIES: ALLERGIES Allergen Reactions Latex Rash VITALS: BP 106/68 Pulse 98 Temp 37.6 C (99.6 F) Resp 16 Wt 64 kg (141 lb) SpO2 98% PHYSICAL EXAM: GEN: mildly ill appearing. HEENT: PERRL, EOMI, conjunctiva injected Throat: moist mucous membranes, mild erythema, no exudate Neck: supple, no thyromegaly, no lymphadenopathy HEART: regular rate and rhythm, no murmurs LUNGS: clear to auscultation, no wheezes or crackles, no increased WOB ABD: Soft, non-distended, non-tender, no masses ASSESSMENT/PLAN: 1. Gastroenteritis - ICD9: 558.9, ICD10: K52.9 Hydration encouraged. Resume normal solid intake as tolerated. Hand hygiene to reduce transmission discussed. Follow up in the ER with signs of dehydration, increasing abdominal pain, high fever, or blood in vomit or stool. - ONDANSETRON 4 MG DISINTEGRATING TABLET Differential includes - 2019 CORONAVIRUS Jasper Coto MD documented in this encounter [facility] 08-21-2021 Miscellaneous Notes Phone call placed patient notified (see prior provider encounter) Patient verbalized understanding, agreed with plan of care. Diamond Tubbs LPN Negative for flu and covid please notify thank you documented in this encounter [facility] 08-20-2021 Instructions Gloria Patten APRN.CNP - 08/20/2021 12:33 PM EDT STREP INFECTIONS: Streptococcal bacteria can cause a sore throat, ear and sinus infections, and skin diseases. Strep throat is diagnosed by a special throat swab or culture test. These infections require either an antibiotic shot or an oral antibiotic medicine to get rid of all the bacteria and prevent rheumatic fever, a dangerous complication. The symptoms of Strep infection, however, usually get better after just 2-3 days of drug treatment. These infections are very contagious; any close contacts who have a fever, sore throat, or illness symptoms should see their doctor right away. Strep is no longer contagious after 24 hours of antibiotic treatment so you may return to school or work if your fever and pain are better in one day. Strep infections can cause serious complications including throat abscess, rheumatic fever and kidney disease, so be sure to take all your antibiotic medicine. See your doctor or return here if your symptoms worsen or are not improved in 3 days or for diffuculty breathing or inability to swallow. documented in this encounter [facility] 08-20-2021 History of Present illness Narrative This note was created using [employer]. Subjective Jose Mcintosh is a 20 year old male. 20 year old male with PMH depression and anxiety presents for illness. Acute onset Wednesday +sore throat +fever + body aches +headache + fatigue Denies cough Denies SOB or CP Denies diarrhea. Slept all day yesterday. 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 States he has not been able to go to work. The history is provided by the patient. No language instructor was used. URI There is no chest tightness, cough, difficulty breathing, frequent throat clearing, hemoptysis, hoarse voice, shortness of breath, sputum production or wheezing. This is a new problem. The current episode started in the past 7 days. The problem occurs constantly. The problem has been gradually worsening. Associated symptoms include a fever, headaches, malaise/fatigue, myalgias and a sore throat. Pertinent negatives include no appetite change, chest pain, dyspnea on exertion, ear congestion, ear pain, heartburn, nasal congestion, orthopnea, PND, postnasal drip, rhinorrhea, sneezing, sweats, trouble swallowing or weight loss. His symptoms are aggravated by nothing. His symptoms are alleviated by nothing. He reports no improvement on treatment. Risk factors for lung disease include smoking/tobacco exposure. There is no history of asthma, bronchiectasis, bronchitis, COPD, emphysema or pneumonia. PAST MEDICAL HISTORY Diagnosis Date Adopted He is a biological second cousin of his adopted mother PERS HX LEAD EXPOSURE 08/31/2006 PAST SURGICAL HISTORY Procedure Laterality Date CIRCUMCISION ALLERGIES Latex MEDICATIONS ibuprofen (MOTRIN) 600 mg tablet Take 1 tablet by mouth every 6 hours as needed for pain. amoxicillin (POLYMOX, AMOXIL) 500 mg capsule Take 1 capsule by mouth twice daily for 10 days. fluticasone (FLONASE) 50 mcg/actuation nasal spray Use 2 Sprays in each nostril once daily. Rinse mouth after use. benzonatate (TESSALON PERLES) 100 mg capsule Take 1 capsule by mouth three times daily as needed for cough. cetirizine (ZYRTEC) 10 mg tablet Take 1 tablet by mouth once daily. FAMILY HISTORY Problem Relation Age of Onset None Mother Asthma Father Social History Tobacco Use Smoking status: Passive Smoke Exposure - Never Smoker Smokeless tobacco: Never Used Tobacco comment: 3 smokers in the home Vaping Use Vaping Use: current everyday user Substances: Nicotine Substance Use Topics Alcohol use: No Drug use: No Review of Systems Constitutional: Positive for fever and malaise/fatigue. Negative for appetite change, chills, diaphoresis and weight loss. HENT: Positive for sore throat. Negative for ear pain, hoarse voice, postnasal drip, rhinorrhea, sneezing and trouble swallowing. Respiratory: Negative for apnea, cough, hemoptysis, sputum production, choking, chest tightness, shortness of breath and wheezing. Cardiovascular: Negative for chest pain, dyspnea on exertion, palpitations, leg swelling and PND. Gastrointestinal: Negative for abdominal pain, constipation, diarrhea, heartburn, nausea and vomiting. Musculoskeletal: Positive for myalgias. Negative for arthralgias, back pain and gait problem. Skin: Negative for color change, pallor, rash and wound. Allergic/Immunologic: Positive for environmental allergies. Negative for food allergies and immunocompromised state. Neurological: Positive for headaches. Hematological: Negative for adenopathy. Does not bruise/bleed easily. Psychiatric/Behavioral: Negative for agitation and behavioral problems. Objective BP 118/72 Pulse 65 Temp 36.7 C (98 F) Resp 21 Wt 64.2 kg (141 lb 9.6 oz) SpO2 99% Physical Exam Vitals and nursing note reviewed. Constitutional: General: He is not in acute distress. Appearance: Normal appearance. He is not ill-appearing, toxic-appearing or diaphoretic. HENT: Head: Normocephalic and atraumatic. Right Ear: External ear normal. Left Ear: External ear normal. Nose: Nose normal. No congestion or rhinorrhea. Mouth/Throat: Mouth: Mucous membranes are moist. Pharynx: Oropharynx is clear. No oropharyngeal exudate or posterior oropharyngeal erythema. Eyes: General: Right eye: No discharge. Left eye: No discharge. Extraocular Movements: Extraocular movements intact. Conjunctiva/sclera: Conjunctivae normal. Pupils: Pupils are equal, round, and reactive to light. Cardiovascular: Rate and Rhythm: Normal rate and regular rhythm. Pulses: Normal pulses. Heart sounds: Normal heart sounds. No murmur heard. No friction rub. No gallop. Pulmonary: Effort: Pulmonary effort is normal. No respiratory distress. Breath sounds: Normal breath sounds. No stridor. No wheezing, rhonchi or rales. Chest: Chest wall: No tenderness. Abdominal: General: Abdomen is flat. There is no distension. Palpations: Abdomen is soft. There is no mass. Tenderness: There is no abdominal tenderness. There is no guarding or rebound. Hernia: No hernia is present. Musculoskeletal: General: No swelling, tenderness, deformity or signs of injury. Normal range of motion. Cervical back: Normal range of motion and neck supple. No rigidity or tenderness. Right lower leg: No edema. Left lower leg: No edema. Lymphadenopathy: Cervical: No cervical adenopathy. Skin: General: Skin is warm and dry. Capillary Refill: Capillary refill takes less than 2 seconds. Coloration: Skin is not jaundiced or pale. Findings: No bruising, lesion or rash. Neurological: General: No focal deficit present. Mental Status: He is alert and oriented to person, place, and time. Cranial Nerves: No cranial nerve deficit. Sensory: No sensory deficit. Motor: No weakness. Coordination: Coordination normal. Gait: Gait normal. Deep Tendon Reflexes: Reflexes normal. Psychiatric: Mood and Affect: Mood normal. Behavior: Behavior normal. Thought Content: Thought content normal. Assessment and Plan ASSESSMENT/PLAN: 1. Strep pharyngitis - ICD9: 034.0, ICD10: J02.0 (primary diagnosis) - suspect strep - Alere Strep Test POSITIVE, no culture pending - antibiotic as written - Discussed supportive care treatment with fluids, rest and analgesia. - The patient may also use OTC cough and cold meds as needed, warm salt water gargles, throat lozenges and/or OTC throat spray as needed and nasal saline gtts and suction prn. - Contagious dz precautions discussed- including considered contagious until on antibiotics for 24 hours - The patient should follow up in 3-5 days if symptoms persist or worsen - Call back if drooling, increased temperature, symptoms of dehydration and/or still sick in one week - STREP A MOLECULAR (POC) - COVID WITH FLUA+B, ROUTINE 2. Fever, unspecified fever cause - ICD9: 780.60, ICD10: R50.9 Related to + strep and illness Utilized OTC antipyretics Fluids Rest - STREP A MOLECULAR (POC) - COVID WITH FLUA+B, ROUTINE-obtained and pending Gloria Patten APRN.MAYANK documented in this encounter [facility] documented as of this encounter (statuses as of 08/20/2021) [facility] History of Past illness Narrative* Problem Noted Date Resolved Date Nondisplaced fracture of nec k of fifth metacarpal bone of right hand with routine healing 07/15/2015 08/24/2017 Personal history of contact with and (suspected) exposure to lead 08/31/2006 08/24/2017 documented as of this encounter (statuses as of 08/21/2021) [facility] History of Past illness Narrative* Problem Noted Date Resolved Date Nondisplaced fracture of nec k of fifth metacarpal bone of right hand with routine healing 07/15/2015 08/24/2017 Personal history of contact with and (suspected) exposure to lead 08/31/2006 08/24/2017 documented as of this encounter (statuses as of 10/29/2021) [facility] History of Past illness Narrative* Problem Noted Date Resolved Date Nondisplaced fracture of nec k of fifth metacarpal bone of right hand with routine healing 07/15/2015 08/24/2017 Personal history of contact with and (suspected) exposure to lead 08/31/2006 08/24/2017 documented as of this encounter (statuses as of 10/30/2021) [facility] History of Past illness Narrative* Problem Noted Date Resolved Date Nondisplaced fracture of nec k of fifth metacarpal bone of right hand with routine healing 07/15/2015 08/24/2017 Personal history of contact with and (suspected) exposure to lead 08/31/2006 08/24/2017 documented as of this encounter (statuses as of 01/21/2022) [facility] History of Past illness Narrative* Problem Noted Date Resolved Date Nondisplaced fracture of nec k of fifth metacarpal bone of right hand with routine healing 07/15/2015 08/24/2017 Personal history of contact with and (suspected) exposure to lead 08/31/2006 08/24/2017 documented as of this encounter (statuses as of 02/15/2022) [facility] History of Past illness Narrative* Problem Noted Date Resolved Date Nondisplaced fracture of nec k of fifth metacarpal bone of right hand with routine healing 07/15/2015 08/24/2017 Personal history of contact with and (suspected) exposure to lead 08/31/2006 08/24/2017 documented as of this encounter (statuses as of 04/17/2022) [facility] of Past illness Narrative* Problem Noted Date Resolved Date Nondisplaced fracture of nec k of fifth metacarpal bone of right hand with routine healing 07/15/2015 08/24/2017 Personal history of contact with and (suspected) exposure to lead 08/31/2006 08/24/2017 documented as of this encounter (statuses as of 04/19/2022) [facility] of Past illness Narrative* Problem Noted Date Resolved Date Nondisplaced fracture of nec k of fifth metacarpal bone of right hand with routine healing 07/15/2015 08/24/2017 Personal history of contact with and (suspected) exposure to lead 08/31/2006 08/24/2017 documented as of this encounter (statuses as of 06/06/2022) [facility] of Past illness Narrative* Problem Noted Date Resolved Date Nondisplaced fracture of nec k of fifth metacarpal bone of right hand with routine healing 07/15/2015 08/24/2017 Personal history of contact with and (suspected) exposure to lead 08/31/2006 08/24/2017 documented as of this encounter (statuses as of 06/08/2022) [facility] of Past illness Narrative* Problem Noted Date Resolved Date Nondisplaced fracture of nec k of fifth metacarpal bone of right hand with routine healing 07/15/2015 08/24/2017 Personal history of contact with and (suspected) exposure to lead 08/31/2006 08/24/2017 documented as of this encounter (statuses as of 07/07/2022) [facility] of Past illness Narrative* Problem Noted Date Diagnosed Date Resolved Date Nondisplaced fracture of nec k of fifth metacarpal bone of right hand with routine healing 07/15/2015 08/24/2017 Personal history of contact with and (suspected) exposure to lead 08/31/2006 08/24/2017 documented as of this encounter (statuses as of 09/25/2022) [facility] of Past illness Narrative* Problem Noted Date Diagnosed Date Resolved Date Nondisplaced fracture of nec k of fifth metacarpal bone of right hand with routine healing 07/15/2015 08/24/2017 Personal history of contact with and (suspected) exposure to lead 08/31/2006 08/24/2017 documented as of this encounter (statuses as of 11/03/2022) [facility] of Past illness Narrative* Problem Noted Date Diagnosed Date Resolved Date Nondisplaced fracture of nec k of fifth metacarpal bone of right hand with routine healing 07/15/2015 08/24/2017 Personal history of contact with and (suspected) exposure to lead 08/31/2006 08/24/2017 documented as of this encounter (statuses as of 12/08/2022) [place] [address]-23-2016 History of Past illness Narrative* Problem Noted Date Diagnosed Date Resolved Date Nondisplaced fracture of nec k of fifth metacarpal bone of right hand with routine healing 07/15/2015 08/24/2017 Personal history of contact with and (suspected) exposure to lead 08/31/2006 08/24/2017 documented as of this encounter (statuses as of 12/22/2022) [facility] of Past illness Narrative* Problem Noted Date Diagnosed Date Resolved Date Nondisplaced fracture of nec k of fifth metacarpal bone of right hand with routine healing 07/15/2015 08/24/2017 Personal history of contact with and (suspected) exposure to lead 08/31/2006 08/24/2017 documented as of this encounter (statuses as of 01/05/2023) [address] History of Past illness Narrative* Problem Noted Date Diagnosed Date Resolved Date Nondisplaced fracture of nec k of fifth metacarpal bone of right hand with routine healing 07/15/2015 08/24/2017 Personal history of contact with and (suspected) exposure to lead 08/31/2006 08/24/2017 documented as of this encounter (statuses as of 01/19/2023) [facility] Diagnosis Strep pharyngitis- Primary Streptococcal sore throat Fever, unspecified fever cause [facility] Gastroenteritis- Primary Other and unspecified noninfectious gastroenteritis and colitis [facility] Diagnosis Sore throat- Primary Acute pharyngitis Viral URI Acute upper respiratory infections of unspecified site [facility]* Diagnosis Nausea- Primary Nausea alone Flu-like symptoms Other general symptoms Fever, unspecified fever cause [facility]* Diagnosis Acute pain of left shoulder- Primary [facility] Diagnosis Acute pain of left shoulder- Primary [facility]* Diagnosis Sore throat- Primary Acute pharyngitis Vomiting without nausea, unspecified vomiting type Viral illness Unspecified viral infection, in conditions classified elsewhere and of unspecified site documented in this encounter [facility]* Diagnosis Joint laxity Other joint derangement, not elsewhere classified, unspecified site Chronic pain of both knees Chronic midline low back pain without sciatica documented in this encounter [facility] note* Diagnosis Sore throat- Primary Acute pharyngitis documented in this encounter [facility] note* Diagnosis Sore throat- Primary Acute pharyngitis Viral illness Unspecified viral infection, in conditions classified elsewhere and of unspecified site documented in this encounter [facility] note* Diagnosis Nausea and vomiting, unspecified vomiting type- Primary Viral illness Unspecified viral infection, in conditions classified elsewhere and of unspecified site documented in this encounter [facility] note* Diagnosis Chronic back pain, unspecified back location, unspecified back pain laterality- Primary Joint laxity Other joint derangement, not elsewhere classified, unspecified site documented in this encounter [facility] note* Diagnosis URI, acute- Primary Acute upper respiratory infections of unspecified site documented in this encounter [facility] Summary Purpose Family History No Family History Records FoundNo Family History Records Found Advance Directives No Advanced Directives Records FoundNo Advanced Directives Records Found Health Concerns Infection Onset Date Last Indicated Resolved Time COVID-19 Rule-Out 08/20/2021 08/20/2021 Infection Onset Date Last Indicated Resolved Time COVID-19 Rule-Out 08/20/2021 08/20/2021 08/21/2021 4:31 AM EDT Infection Onset Date Last Indicated Resolved Time COVID-19 Rule-Out 10/29/2021 10/29/2021 Infection Onset Date Last Indicated Resolved Time COVID-19 Rule-Out 10/29/2021 10/29/2021 10/30/2021 8:13 AM EDT Infection Onset Date Last Indicated Resolved Time COVID-19 Rule-Out 01/21/2022 01/21/2022 Infection Onset Date Last Indicated Resolved Time COVID-19 Rule-Out 01/21/2022 01/21/2022 01/22/2022 1:08 AM EST Infection Onset Date Last Indicated Resolved Time COVID-19 Confirmed 04/17/2022 04/17/2022 Infection Onset Date Last Indicated Resolved Time COVID-19 Rule-Out 12/08/2022 12/08/2022 Infection Onset Date Last Indicated Resolved Time COVID-19 Rule-Out 01/18/2023 01/18/2023 01/19/2023 12:38 AM EST Reason for Referral Specialty Diagnoses / Procedures Referred By Contac t Referred To Contact [facility] Diagnoses Joint laxity Chronic pain of both knees Chronic midline low back pain without sciatica Procedures PT REHAB FOLLOW UP ORDER THERAPEUTIC EXERCISES RE, EA 15 MIN. Kate Munoz, PT [address] [place] [address] [facility] [place] [address] [place] [address] Referral ID Status Reason Start Date Expiration Date Visits Requested Visits Authorized [id number] Pending Review PCP Requested Referral Auto-Generate d Referral 09/25/2022 12/24/2022 1 1 Additional Source Comments (unrecognized sect ion and content) No Status Records FoundNo Status Records Found INFORMATION SOURCE (unrecogn ized section and content) DATE CREATED AUTHOR AUTHOR'S ORGANIZ ATION 02/18/2023 [facility] Source Comments (unrecognize d section and content) In the event this informatio n is protected by the Federal Confidentiality of Alcohol and Drug Abuse Patient Records regulations: The Federal rules restrict any use of the information to criminally investigate or prosecute any alcohol or drug abuse patient.[facility] the event this information is protected by the Federal Confidentiality of Alcohol and Drug Abuse Patient Records regulations: The Federal rules restrict any use of the information to criminally investigate or prosecute any alcohol or drug abuse patient.[facility] the event this information is protected by the Federal Confidentiality of Alcohol and Drug Abuse Patient Records regulations: The Federal rules restrict any use of the information to criminally investigate or prosecute any alcohol or drug abuse patient.[facility] the event this information is protected by the Federal Confidentiality of Alcohol and Drug Abuse Patient Records regulations: The Federal rules restrict any use of the information to criminally investigate or prosecute any alcohol or drug abuse patient.[facility] the event this information is protected by the Federal Confidentiality of Alcohol and Drug Abuse Patient Records regulations: The Federal rules restrict any use of the information to criminally investigate or prosecute any alcohol or drug abuse patient.[facility] the event this information is protected by the Federal Confidentiality of Alcohol and Drug Abuse Patient Records regulations: The Federal rules restrict any use of the information to criminally investigate or prosecute any alcohol or drug abuse patient.[facility] the event this information is protected by the Federal Confidentiality of Alcohol and Drug Abuse Patient Records regulations: The Federal rules restrict any use of the information to criminally investigate or prosecute any alcohol or drug abuse patient.[facility] the event this information is protected by the Federal Confidentiality of Alcohol and Drug Abuse Patient Records regulations: The Federal rules restrict any use of the information to criminally investigate or prosecute any alcohol or drug abuse patient.[facility] the event this information is protected by the Federal Confidentiality of Alcohol and Drug Abuse Patient Records regulations: The Federal rules restrict any use of the information to criminally investigate or prosecute any alcohol or drug abuse patient.[facility] the event this information is protected by the Federal Confidentiality of Alcohol and Drug Abuse Patient Records regulations: The Federal rules restrict any use of the information to criminally investigate or prosecute any alcohol or drug abuse patient.[facility] the event this information is protected by the Federal Confidentiality of Alcohol and Drug Abuse Patient Records regulations: The Federal rules restrict any use of the information to criminally investigate or prosecute any alcohol or drug abuse patient.[facility] the event this information is protected by the Federal Confidentiality of Alcohol and Drug Abuse Patient Records regulations: The Federal rules restrict any use of the information to criminally investigate or prosecute any alcohol or drug abuse patient.[facility] the event this information is protected by the Federal Confidentiality of Alcohol and Drug Abuse Patient Records regulations: The Federal rules restrict any use of the information to criminally investigate or prosecute any alcohol or drug abuse patient.[facility] the event this information is protected by the Federal Confidentiality of Alcohol and Drug Abuse Patient Records regulations: The Federal rules restrict any use of the information to criminally investigate or prosecute any alcohol or drug abuse patient.[facility] the event this information is protected by the Federal Confidentiality of Alcohol and Drug Abuse Patient Records regulations: The Federal rules restrict any use of the information to criminally investigate or prosecute any alcohol or drug abuse patient.[facility] the event this information is protected by the Federal Confidentiality of Alcohol and Drug Abuse Patient Records regulations: The Federal rules restrict any use of the information to criminally investigate or prosecute any alcohol or drug abuse patient.[facility] the event this information is protected by the Federal Confidentiality of Alcohol and Drug Abuse Patient Records regulations: The Federal rules restrict any use of the information to criminally investigate or prosecute any alcohol or drug abuse patient.[facility] Reason for Visit (unrecogniz ed section and content) Reason Comments Results Reason Comments Cough fatigue and vomiting x 2 days Reason Comments Sore Throat Cough, congestion, v omiting, QUIROGA x 2 days Reason Comments Headache Pt reported N/V, bod y aches AM. Reason Comments Shoulder Injury left x 3 days, neck pain x yesterday Reason Comments Urgent Care Follow up Pt was unable to m ove left arm yesterday. Sharp pain certain movements in left arm and shoulder. No injury to left shoulder that pt is aware of. Reason Comments Nausea & Vomiting chills, cough, fatig ue and sore throat x 5 days, seen Wednesday Reason Comments PT Eval Specialty Diagnoses / Procedures Referred By Contac t Referred To Contact Physical Therapy / PHYSICAL THERAPY Diagnoses Joint laxity [M25.20]; Chronic pain of both knees [M25.561, M25.562, G89.29]; Chronic midline low back pain without sciatica [M54.50, G89.29] Procedures NEW PT SPINE Karine Mitchell PA-C [address] [place] [address] Kate Munoz, PT [address] [phone] Referral ID Status Reason Start Date Expiration Date Visits Re quested Visits Authorized [id number] Closed 09/25/2022 02/21/2023 1 1 Reason Comments Sore Throat x 2 days Reason Comments Nausea & Vomiting X 3 days, headache Reason Comments Cough Cough, congestion, H A and vomiting x 3 days Reason Comments Physical Therapy Specialty Diagnoses / Procedures Referred By Contac t Referred To Contact Physical Therapy / PHYSICAL THERAPY Diagnoses M25.20 (ICD-10-CM) - Joint laxity M25.561,M25.562,G89.29 (ICD-10-CM) - Chronic pain of both knees M54.50,G89.29 (ICD-10-CM) - Chronic midline low back pain without sciatica Procedures M25.20 (ICD-10-CM) - Joint laxity M25.561,M25.562,G89.29 (ICD-10-CM) - Chronic pain of both knees M54.50,G89.29 (ICD-10-CM) - Chronic midline low back pain without sciatica Karine Mitchell PA-C [address] [phone] Kate Munoz, PT [address] [place] [address] Referral ID Status Reason Start Date Expiration Date V isits Requested Visits Authorized [id number] Authorized 10/29/2022 01/13/2023 6 6 Reason Comments Cough Congestion, ST, fati satnam, nausea, bodyaches x3 days Care Teams (unrecognized sec tion and content) Manager Spa Relationship Specialty Start Date End Date Andre Holm MD [address] [place] [address] [phone] PCP - General 02 Manager Spa Relationship Specialty Start Date End Date Andre Holm MD [address] [place] [address] [phone] PCP - General 02 Manager Spa Relationship Specialty Start Date End Date Andre Holm MD [address] [place] [address] [phone] PCP - General 02 Manager Spa Relationship Specialty Start Date End Date Andre Holm MD [address] [place] [phone] PCP - General 02 Manager Spa Relationship Specialty Start Date End Date Andre Holm MD [address] [place] [phone] PCP - General 02 Manager Spa Relationship Specialty Start Date End Date Andre Holm MD [address] [place] [address] [phone] PCP - General 02 FOR RECORDS PERTAINING TO PATIENTS WHO ARE OR HAVE BEEN ENROLLED IN A CHEMICAL DEPENDENCY/SUBSTANCEABUSE PROGRAM, SOME INFORMATION MAY BE OMITTED. This clinical summary was aggregated from multiple sources. Caution should be exercised in using it in the provision of clinical care. This summary normalizes information from multiple sources, and as a consequence, information in this document may materially change the coding, format and clinical context of patient data. In addition, data may be omitted in some cases. CLINICAL DECISIONS SHOULD BE BASED ON THE PRIMARY CLINICAL RECORDS. [employer] [facility]. provides no warranty or guarantee of the accuracy or completeness of information in this document.
== END 2023-02-19 20:54 | disposition home or self-care (01) ==
PROVIDERS: Emergency Provider Emergency Medicine; Referring Provider Emergency Medicine; Visit Provider Emergency Medicine
DX: S60.211A Contusion of right wrist, initial encounter (principal); F17.210 Nicotine dependence, cigarettes, uncomplicated; W22.8XXA Striking against or struck by other objects, initial encounter
CPT/HCPCS: 73110; 99283

== ENCOUNTER 2023-04-01 17:58 | Emergency (ER) | payer MEDICAID, SELFPAY ==
[2023-04-01 17:59] VITALS: BP 117/66; PULSE 58; RESP 18; TEMP 36.9; O2SAT 99; BMI 19.4
--- NOTE | 2023-04-01 18:09 | EDS_ITS ---
HPI History of Present Illness Chief Complaint: Upper Extremity Injury Informant: patient Narrative Narrative: Patient presents with right hand pain. Patient states he was about to fall. He reached out and then he accidentally hit the dorsum of his hand on a hard piece of metal. He has pain over the second third and a little bit of the fourth metacarpal phalangeal junctions. He is right-hand dominant. He states nothing else hurt. He never hit his head. N ever actually fell to the ground. [facility] Medical History Back pain Knee pain Home Medications NK 02/19/23 [History Last Taken Unknown] Allergy/AdvReac Type Severity Reaction Status Date / Time latex Allergy Rash Verified 04/01/23 17:58 Social History Smoking Status: Current some day smoker tobacco type: cigarettes ROS ROS ED Eyes Eyes: Denies change in vision Cardiovascular Cardiovascular: Denies chest pain Respiratory/Chest Respiratory/Chest: Denies dyspnea Gastrointestinal Gastrointestinal: Denies nausea or vomiting Musculoskeletal Musculoskeletal: Reports other Details: Right hand pain as in history of present illness. Integumentary Denies Abrasions or rash Neurologic Neurologic: Denies paresthesias or weakness Hematologic/Lymphatic Hematologic/Lymphatic: Denies easy bleeding or easy bruising EXAM Physical Exam Narrative Exam Narrative: General: Patient awake alert sitting comfortably in the bed very nontoxic. Cardiorespiratory shows easy unlabored breathing. Abdomen is soft nontender. Extremities do show a slight swelling over mostly the second and third MCP. No deformity. Range of motion is intact. There is no tenderness or pain with motion at the wrist elbow or shoulder. Const Vital Signs: 04/01/23 17:59 Temperature 98.5 F Temperature Source Temporal Pulse Rate 58 L Respiratory Rate 18 Blood Pressure 117/66 Blood Pressure Mean 83 Pulse Ox 99 Oxygen Delivery Method Room Air MDM MDM MDM Narrative Medical decision making narrative: My independent interpretation of the patient's three-view x-ray of the right hand shows no sign of acute fracture or dislocation. Final reading is pending. Explained patient should use ice Tylenol or Motrin. I do not think splinting would be beneficial and would likely cause more stiffness. Discharge Plan Triage Chief Complaint: Upper Extremity Injury ED Provider: Saman Jimenez Dx/Rx/DC Orders Clinical Impression: Contusion of dorsum of right hand Instructions: ED Hand Contusion Prescriptions: No Action NK Primary Care Provider: Care Physician,No Primary Referrals: Corey Mae MD [Med Staff - [place]] - 3-5 Days if not improving Care Physician,No Primary [Primary Care Provider] - Activity Restrictions/Additional Instructions: Use ice, Tylenol or Motrin for discomfort. Disposition Disposition: Home, Self Care
--- NOTE | 2023-04-01 18:20 | RAD_ITS ---
STUDY: X-RAY - RIGHT HAND REASON FOR EXAM: Male, 22 years old. trauma TECHNIQUE: 3 view(s) of the hand. COMPARISON: None. FINDINGS: Normal radiocarpal articulation. Normal distal radioulnar joint. Normal visualized carpal bones. Normal carpal articulations Normal carpometacarpal articulation of the thumb. Normal second through fifth carpometacarpal joints. Normal metacarpi. Normal metacarpophalangeal joint of the thumb. Normal interphalangeal joint of the thumb. Normal proximal and distal phalanges of the thumb. Normal metacarpophalangeal joints of the second through fifth fingers. Normal proximal and distal interphalangeal joints of the second through fifth fingers. Normal phalanges of the second through fifth fingers. The soft tissue structures are unremarkable. RAD/Hand Min 3 Views IMPRESSION: Normal x-ray examination of the hand. Electronically Signed: Jakob Adam MD at 18:53 EST ,
--- OUTSIDE RECORDS SUMMARY | 2023-04-01 18:29 | XMS RPT_ITS | CCD ---
Author Name Unknown Address [id number] [place] [address] Organization [facility] Care Team Providers Care Relay Tester Helper Name Role Phone CARLOS MONCADA Unavailable Unavailable MAGDA ASHLEY Unavailable Unavailable NO PRIMARY CARE, Unavailable Unavailable Carlos LEZAMA, Andre Milton Primary Care Provider Andre Holm MD Primary Care Provider Andre Holm MD Primary Care Provider Unavailable Primary Care Provider UnavailANDRE Castillo Primary Care Unavailable DORETHA GOLDEN Referring Unavailable WANDA HAILE Attending Unavailable ANDRE HOLM Primary Care Unavailable Karine MITCHELL Referring Unavailable KATE MUNOZ Attending Unavailable ANDRE HOLM Primary Care Unavailable KATE MUNOZ Attending Unavailable KATE MUNOZ Referring Unavailable KATE MUNOZ Attending Unavailable Karine MITCHELL Referring Unavailable KATE MUNOZ Attending Unavailable Karine MITCHELL Referring Unavailable KATE MUNOZ Attending Unavailable Karine MITCHELL Referring Unavailable KATE MUNOZ Attending Unavailable Karine MITCHELL Referring Unavailable Karine MITCHELL Attending Unavailable YUMIKO STEIN Attending Unavailable YUMIKO STEIN Primary Care Unavailable YUMIKO STEIN Admitting Unavailable Allergies Allergy Classification Reported Allergen(s) Allergy Type Date of Onset Reaction(s) Facility (19 sources) Latex; Translations: [LATEX] Drug Intolerance 0 Rash [facility] Work Phone: Medications Current Medications Medication Drug [...] 98.4 [degF] Gloria Patten APRN.CNP Work Phone: [facility] 01-18-2023 13:24-0500 Body weight 63.32 kg Gloria Patten APRN.CNP Work Phone: [facility] 01-18-2023 13:24-0500 Diastolic blood pressure 69 mm[Hg] Gloria Patten APRN.CNP Work Phone: [facility] 01-18-2023 13:24-0500 Heart rate 84 /min Gloria Patten APRN.CNP Work Phone: [facility] 01-18-2023 13:24-0500 Respiratory rate 18 /min Gloria Patten MONEY COUNTER.DIRECT CARE WORKER Work Phone: [facility] 01-18-2023 13:24-0500 SaO2% (BldA) [Mass fraction] 97 % Gloria Patten MONEY COUNTER.DIRECT CARE WORKER Work Phone: [facility] 01-18-2023 13:24-0500 Systolic blood pressure 100 mm[Hg] Gloria Patten MONEY COUNTER.DIRECT CARE WORKER Work Phone: [facility] 12-22-2022 09:08-0400 Body temperature 98.71 [degF] Shonna Praisler-Wood MONEY COUNTER.DIRECT CARE WORKER Work Phone: [facility] 12-22-2022 09:08-0400 Body weight 61.96 kg Shonna Praisler-Wood MONEY COUNTER.DIRECT CARE WORKER Work Phone: [facility] 12-22-2022 09:08-0400 Diastolic blood pressure 64 mm[Hg] Shonna Praisler-Wood MONEY COUNTER.DIRECT CARE WORKER Work Phone: [facility] 12-22-2022 09:08-0400 Heart rate 104 /min Shonna Praisler-Wood MONEY COUNTER.DIRECT CARE WORKER Work Phone: [facility] 12-22-2022 09:08-0400 Respiratory rate 16 /min Shonna Praisler-Wood MONEY COUNTER.DIRECT CARE WORKER Work Phone: [facility] 12-22-2022 09:08-0400 SaO2% (BldA) [Mass fraction] 96 % Shonna Praisler-Wood MONEY COUNTER.DIRECT CARE WORKER Work Phone: [facility] 12-22-2022 09:08-0400 Systolic blood pressure 108 mm[Hg] Shonna Praisler-Wood MONEY COUNTER.DIRECT CARE WORKER Work Phone: [facility] 12-08-2022 08:50-0400 Body temperature 98.6 [degF] Jakob Perry MONEY COUNTER.DIRECT CARE WORKER Work Phone: [facility] 12-08-2022 08:50-0400 Body weight 61.24 kg Jakob Perry MONEY COUNTER.DIRECT CARE WORKER Work Phone: [facility] 12-08-2022 08:50-0400 Diastolic blood pressure 76 mm[Hg] Jakob Luxbury MONEY COUNTER.DIRECT CARE WORKER Work Phone: [facility] 12-08-2022 08:50-0400 Heart rate 93 /min Jakob Luxbury MONEY COUNTER.DIRECT CARE WORKER Work Phone: [facility] 12-08-2022 08:50-0400 SaO2% (BldA) [Mass fraction] 98 % Jkaob Perry MONEY COUNTER.DIRECT CARE WORKER Work Phone: [facility] 12-08-2022 08:50-0400 Systolic blood pressure 110 mm[Hg] Jakob Perry MONEY COUNTER.DIRECT CARE WORKER Work Phone: [facility] 11-03-2022 14:00-0400 Body temperature 97.9 [degF] Doretha Golden MONEY COUNTER.DIRECT CARE WORKER Work Phone: [facility] 11-03-2022 14:00-0400 Body weight 62.6 kg Doretha Golden MONEY COUNTER.DIRECT CARE WORKER Work Phone: [facility] 11-03-2022 14:00-0400 Diastolic blood pressure 68 mm[Hg] Doretha Golden MONEY COUNTER.DIRECT CARE WORKER Work Phone: [facility] 11-03-2022 14:00-0400 Heart rate 76 /min Doretha Golden MONEY COUNTER.DIRECT CARE WORKER Work Phone: [facility] 11-03-2022 14:00-0400 Respiratory rate 16 /min Doretha Golden MONEY COUNTER.DIRECT CARE WORKER Work Phone: [facility] 11-03-2022 14:00-0400 SaO2% (BldA) [Mass fraction] 96 % Doretha Golden MONEY COUNTER.DIRECT CARE WORKER Work Phone: [facility] 11-03-2022 14:00-0400 Systolic blood pressure 110 mm[Hg] Doretha Chico MONEY COUNTER.DIRECT CARE WORKER Work Phone: [facility] 07-07-2022 08:03-0400 Body temperature 98.8 [degF] Tamika Liam MONEY COUNTER.DIRECT CARE WORKER Work Phone: [facility] 07-07-2022 08:03-0400 Body weight 63.5 kg Tamika Waldenk MONEY COUNTER.DIRECT CARE WORKER Work Phone: [facility] 07-07-2022 08:03-0400 Diastolic blood pressure 60 mm[Hg] Tamika Laim MONEY COUNTER.DIRECT CARE WORKER Work Phone: [facility] 07-07-2022 08:03-0400 Heart rate 80 /min Tamika Liam MONEY COUNTER.DIRECT CARE WORKER Work Phone: [facility] 07-07-2022 08:03-0400 Respiratory rate 16 /min Tamika Liam MONEY COUNTER.DIRECT CARE WORKER Work Phone: [facility] 07-07-2022 08:03-0400 SaO2% (BldA) [Mass fraction] 97 % Tamika Liam MONEY COUNTER.DIRECT CARE WORKER Work Phone: [facility] 07-07-2022 08:03-0400 Systolic blood pressure 118 mm[Hg] Tamika Liam MONEY COUNTER.DIRECT CARE WORKER Work Phone: [facility] 06-08-2022 09:08-0400 Body temperature 98.29 [degF] Wanda Haile PA-C Work Phone: [facility] 06-08-2022 09:08-0400 Body weight 63.21 kg Wanda Haile PA-C Work Phone: [facility] 06-08-2022 09:08-0400 Heart rate 106 /min Wanda Haile PA-C Work Phone: [facility] 06-08-2022 09:08-0400 Respiratory rate 18 /min Wanda Haile PA-C Work Phone: [facility] 06-06-2022 14:00-0400 Body temperature 99.1 [degF] Jakob Perry MONEY COUNTER.DIRECT CARE WORKER Work Phone: [facility] 06-06-2022 14:00-0400 Body weight 61.24 kg Jakob Pendlebury MONEY COUNTER.DIRECT CARE WORKER Work Phone: [facility] 06-06-2022 14:00-0400 Diastolic blood pressure 68 mm[Hg] Jakob Pendlebury MONEY COUNTER.DIRECT CARE WORKER Work Phone: [facility] 06-06-2022 14:00-0400 Heart rate 108 /min Jakob Pendlebury MONEY COUNTER.DIRECT CARE WORKER Work Phone: [facility] 06-06-2022 14:00-0400 Respiratory rate 16 /min Jakob Pendlebury MONEY COUNTER.DIRECT CARE WORKER Work Phone: [facility] 06-06-2022 14:00-0400 SaO2% (BldA) [Mass fraction] 96 % Jakob Pendlebury MONEY COUNTER.DIRECT CARE WORKER Work Phone: [facility] 06-06-2022 14:00-0400 Systolic blood pressure 102 mm[Hg] Jakob Pendlebury MONEY COUNTER.DIRECT CARE WORKER Work Phone: [facility] 04-17-2022 09:59-0500 Body temperature 100.6 [degF] Shonna Praisler-Wood MONEY COUNTER.DIRECT CARE WORKER Work Phone: [facility] 04-17-2022 09:59-0500 Body weight 60.78 kg Shonna Praisler-Wood MONEY COUNTER.DIRECT CARE WORKER Work Phone: [facility] 04-17-2022 09:59-0500 Diastolic blood pressure 76 mm[Hg] Shonna Praisler-Wood MONEY COUNTER.DIRECT CARE WORKER Work Phone: [facility] 04-17-2022 09:59-0500 Heart rate 114 /min Shonna Praisler-Wood MONEY COUNTER.DIRECT CARE WORKER Work Phone: [facility] 04-17-2022 09:59-0500 Respiratory rate 20 /min Shonna Praisler-Wood MONEY COUNTER.DIRECT CARE WORKER Work Phone: [facility] 04-17-2022 09:59-0500 SaO2% (BldA) [Mass fraction] 98 % Shonna Praisler-Wood MONEY COUNTER.DIRECT CARE WORKER Work Phone: [facility] 04-17-2022 09:59-0500 Systolic blood pressure 122 mm[Hg] Shonna Praisler-Wood MONEY COUNTER.DIRECT CARE WORKER Work Phone: [facility] 01-21-2022 14:32-0500 Body temperature 98.2 [degF] Shonna Praisler-Wood MONEY COUNTER.DIRECT CARE WORKER Work Phone: [facility] 01-21-2022 14:32-0500 Body weight 67.04 kg Shonna Praisler-Wood MONEY COUNTER.DIRECT CARE WORKER Work Phone: [facility] 01-21-2022 14:32-0500 Diastolic blood pressure 72 mm[Hg] Shonna Praisler-Wood MONEY COUNTER.DIRECT CARE WORKER Work Phone: [facility] 01-21-2022 14:32-0500 Heart rate 102 /min Shonna Praisler-Wood MONEY COUNTER.DIRECT CARE WORKER Work Phone: [facility] 01-21-2022 14:32-0500 Respiratory rate 21 /min Shonna Praisler-Wood MONEY COUNTER.DIRECT CARE WORKER Work Phone: [facility] 01-21-2022 14:32-0500 SaO2% (BldA) [Mass fraction] 98 % Shonna Praisler-Wood MONEY COUNTER.DIRECT CARE WORKER Work Phone: [facility] 01-21-2022 14:32-0500 Systolic blood pressure 114 mm[Hg] Shonna Praisler-Wood MONEY COUNTER.DIRECT CARE WORKER Work Phone: [facility] 10-29-2021 18:33-0400 Body temperature 99.61 [degF] Jasper Coto MD Work Phone: [facility] 10-29-2021 18:33-0400 Body weight 63.96 kg Jasper Coto MD Work Phone: [facility] 10-29-2021 18:33-0400 Diastolic blood pressure 68 mm[Hg] Jasper Coto MD Work Phone: [facility] 10-29-2021 18:33-0400 Heart rate 98 /min Jasper Coto MD Work Phone: [facility] 10-29-2021 18:33-0400 Respiratory rate 16 /min Jasper Coto MD Work Phone: [facility] 10-29-2021 18:33-0400 SaO2% (BldA) [Mass fraction] 98 % Jasper Coto MD Work Phone: [facility] 10-29-2021 18:33-0400 Systolic blood pressure 106 mm[Hg] Jasper Coto MD Work Phone: [facility] 08-20-2021 12:14-0400 Body temperature 98.01 [degF] Gloria Patten MONEY COUNTER.DIRECT CARE WORKER Work Phone: [facility] 08-20-2021 12:14-0400 Body weight 64.23 kg Gloria Patten MONEY COUNTER.DIRECT CARE WORKER Work Phone: [facility] 08-20-2021 12:14-0400 Diastolic blood pressure 72 mm[Hg] Gloria Patten MONEY COUNTER.DIRECT CARE WORKER Work Phone: [facility] 08-20-2021 12:14-0400 Heart rate 65 /min Golria Patten MONEY COUNTER.DIRECT CARE WORKER Work Phone: [facility] 08-20-2021 12:14-0400 Respiratory rate 21 /min Gloria Patten MONEY COUNTER.DIRECT CARE WORKER Work Phone: [facility] 08-20-2021 12:14-0400 SaO2% (BldA) [Mass fraction] 99 % Gloria Patten MONEY COUNTER.DIRECT CARE WORKER Work Phone: [facility] 08-20-2021 12:14-0400 Systolic blood pressure 118 mm[Hg] Gloria Patten MONEY COUNTER.DIRECT CARE WORKER Work Phone: [facility] Encounters Encounter Date Encounter Type Care Provider Facility Start: 02-25-2023 End: 02-25-2023 Emergency department patient visit YUMIKO STEIN [facility] Start: 02-24-2023 End: 02-24-2023 ambulatory ANDRE PLAYL Facility:[facility] Start: 02-16-2023 End: 02-16-2023 ambulatory [facility] Facility:[facility] Start: 02-09-2023 End: 02-09-2023 ambulatory [facility] Facility:[facility] Start: 01-19-2023 End: 01-19-2023 ambulatory [facility] Facility:[facility] Start: 01-18-2023 End: 01-18-2023 [facility] Facility:[facility] Start: 01-18-2023 End: 01-18-2023 Patient encounter procedure Gloria Patten MONEY COUNTER.[facility] Work Phone: [facility] Procedures Date Procedure Procedure Detail Performing Clinician Start: 02-25-2023 Urinalysis YUMIKO TOM Plan of Treatment Date Care Activity Detail Author Start: 07-23-2024 Urine microalbumin profile [facility] Start: 09-15-2023 Meningococcal B Vacc ine: Consider Based On Risk (1 of 2 - Patient Seeks Protection) Meningococcal B Vaccine: Consider Based On Risk (1 of 2 - Patient Seeks Protection) [facility] Immunizations Immunization Date Immunization Notes Care Provider Ashlee villalba 01-29-2016 Human Papillomavirus 9-valent vaccine Gloria Patten MONEY COUNTER.DIRECT CARE WORKER Work Phone: [facility] Work Phone: 11-15-2015 influenza, injectabl e, quadrivalent, contains preservative Gloria Patten MONEY COUNTER.[facility] Work Phone: [facility] Work Phone: 11-15-2015 influenza virus vacc ine, unspecified formulation Doretha Golden MONEY COUNTER.DIRECT CARE WORKER Work Phone: [facility] 09-16-2015 Human Papillomavirus 9-valent vaccine Gloria Patten MONEY COUNTER.DIRECT CARE WORKER Work Phone: [facility] Work Phone: 07-23-2014 human papilloma viru s vaccine, quadrivalent Gloria Patten MONEY COUNTER.DIRECT CARE WORKER Work Phone: [facility] 07-23-2014 meningococcal oligosaccharide (groups A, C, Y and W-135) diphtheria toxoid conjugate vaccine (MCV4O) Gloria Patten MONEY COUNTER.[facility] Work Phone: [facility] 07-23-2014 tetanus toxoid, redu madalyn diphtheria toxoid, and acellular pertussis vaccine, adsorbed Gloria Patten MONEY COUNTER.[facility] Work Phone: [facility] 01-10-2013 influenza virus vacc ine, live, attenuated, for intranasal use Gloria Patten MONEY COUNTER.[facility] Work Phone: [facility] 01-24-2011 influenza virus vacc ine, live, attenuated, for intranasal use Gloria Patten MONEY COUNTER.[facility] Work Phone: [facility] Work Phone: 01-07-2010 influenza virus vacc ine, live, attenuated, for intranasal use Gloria Patten MONEY COUNTER.[facility] Work Phone: [facility] Work Phone: 01-08-2009 novel influenza-H1N1 -09, all formulations Gloria Patten MONEY COUNTER.[facility] Work Phone: [facility] 11-24-2008 influenza virus vacc ine, live, attenuated, for intranasal use Gloria Patten MONEY COUNTER.[facility] Work Phone: [facility] Work Phone: 12-01-2007 diphtheria, tetanus toxoids and acellular pertussis vaccine Gloria Patten MONEY COUNTER.[facility] Work Phone: [facility] Work Phone: 12-01-2007 hepatitis A vaccine, unspecified formulation Gloria Patten MONEY COUNTER.[facility] Work Phone: [facility] Work Phone: 12-01-2007 measles, mumps and rubella virus vaccine Gloria Patten MONEY COUNTER.[facility] Work Phone: [facility] Work Phone: 12-01-2007 poliovirus vaccine, inactivated Gloria Patten MONEY COUNTER.[facility] Work Phone: [facility] Work Phone: 11-04-2006 hepatitis A vaccine, unspecified formulation Gloria Patten MONEY COUNTER.[facility] Work Phone: [facility] 11-04-2006 varicella virus vaccine Jenny ica Patten MONEY COUNTER.[facility] Work Phone: [facility] 03-17-2004 diphtheria, tetanus toxoids and acellular pertussis vaccine Gloria Patten MONEY COUNTER.[facility] Work Phone: [facility] Work Phone: 03-17-2004 haemophilus influenz ae type b vaccine, HbOC conjugate Gloria Patten MONEY COUNTER.[facility] Work Phone: [facility] Work Phone: 12-03-2003 measles, mumps and rubella virus vaccine Gloria Patten MONEY COUNTER.[facility] Work Phone: [facility] Work Phone: 12-03-2003 pneumococcal conjuga te vaccine, 7 valent Gloria Patten MONEY COUNTER.[facility] Work Phone: [facility] Work Phone: 12-03-2003 varicella virus vaccine Jenny ica Patten MONEY COUNTER.[facility] Work Phone: [facility] Work Phone: 08-28-2003 diphtheria, tetanus toxoids and acellular pertussis vaccine Gloria Patten MONEY COUNTER.[facility] Work Phone: [facility] Work Phone: 08-28-2003 haemophilus influenz ae type b vaccine, HbOC conjugate Gloria Patten MONEY COUNTER.[facility] Work Phone: [facility] Work Phone: 08-28-2003 hepatitis B vaccine, pediatric or pediatric/adolescent dosage Gloria Patten MONEY COUNTER.[facility] Work Phone: [facility] Work Phone: 08-28-2003 poliovirus vaccine, inactivated Gloria Patten MONEY COUNTER.[facility] Work Phone: [facility] Work Phone: 04-06-2003 diphtheria, tetanus toxoids and acellular pertussis vaccine Gloria Patten MONEY COUNTER.[facility] Work Phone: [facility] Work Phone: 04-06-2003 haemophilus influenz ae type b vaccine, HbOC conjugate Gloria Patten MONEY COUNTER.[facility] Work Phone: [facility] Work Phone: 04-06-2003 pneumococcal conjuga te vaccine, 7 valent Gloria Patten MONEY COUNTER.[facility] Work Phone: [facility] Work Phone: 04-06-2003 poliovirus vaccine, inactivated Gloria Patten MONEY COUNTER.[facility] Work Phone: [facility] Work Phone: 01-01-2003 diphtheria, tetanus toxoids and acellular pertussis vaccine Gloria Patten MONEY COUNTER.[facility] Work Phone: [facility] Work Phone: 01-01-2003 haemophilus influenz ae type b vaccine, HbOC conjugate Gloria Patten MONEY COUNTER.[facility] Work Phone: [facility] Work Phone: 01-01-2003 pneumococcal conjuga te vaccine, 7 valent Gloria Patten MONEY COUNTER.[facility] Work Phone: [facility] Work Phone: 01-01-2003 poliovirus vaccine, inactivated Gloria Patten MONEY COUNTER.[facility] Work Phone: [facility] Work Phone: 2002 hepatitis B vaccine, pediatric or pediatric/adolescent dosage Gloria Patten MONEY COUNTER.[facility] Work Phone: [facility] Work Phone: 2002 hepatitis B vaccine, pediatric or pediatric/adolescent dosage Gloria Patten MONEY COUNTER.[facility] Work Phone: [facility] Work Phone: Payers Date Payer Category Payer Medicaid [id number] 2020 Medicaid [facility] MEDICAID [facility] PL[facility] MEDICAID [id number] 2020-Present [phone] [address] [place] [address] Medicaid [id number] 2020 Medicaid [id number] 2002 Unknown [id number] Unknown [id number] Social History Date Type Detail Facility Start: 2016 End: 10-31-2021 Tobacco smoking status NHIS Never smoked tobacco [facility] Start: 08-20-2021 End: 01-18-2023 Alcohol intake Current non-drinker of alcohol (finding) [facility] Start: 06-17-2015 End: 10-31-2021 Tobacco Comment 3 smokers in the home [facility] Start: 2002 Sex Assigned At Not on file [facility] Start: 08-10-2021 End: 01-21-2022 Exposure to SARS-CoV-2 (event) Not sure [facility] History of tobacco use Passive smoker [facility] Work Phone: Start: 2016 End: 09-14-2022 Tobacco use and exposure Smokeless tobacco non-user [facility] Work Phone: Start: 04-17-2022 End: 09-14-2022 Tobacco smoking status NHIS Smokes tobacco daily [facility] History of tobacco use Cigarette Smoker [facility] Start: 09-14-2022 End: 01-18-2023 Cigarettes smoked current (pack per day) - Reported 0.3 [facility] Start: 09-14-2022 End: 09-16-2022 Tobacco use panel [facility] National Score (1-10 0), lower number is lower risk 47 [facility] Start: 09-14-2022 Tobacco Comment 6 cigarettes a day [facility] Clinical Notes 07-15-2015 to 02-24-2023 Gloria Patten APRN.DIRECT CARE WORKER - 01/18/2023 1:29 PM Kate Hicks, PT - 01/05/2023 10:38 AM Kate Hicks, PT - 01/05/2023 10:03 AM ESTPatient InstructionsPatient InstructionsPatient Instructions Note Date & Type Note Facility 02-24-2023 Note HNO ID: [id number] Author: Charlotte Patel APRN.DIRECT CARE WORKER Service: ? Author Type: Nurse Practitioner Type: Progress Notes Filed: 02/24/2023 8:42 AM Note Text: CC: Patient presents with: Sore Throat: congestion and nasal drainage x last night HPI: Jose Mcintosh is a 22 year old male who presents to the office with complaint of head congestion, cough, nonproductive, and sore throat since last night. Symptoms are staying the same. Associated symptoms includes nasal congestion. Denies fever, nausea, vomiting , and diarrhea. Treatments tried include nothing so far. with no relief of symptoms. Sick contacts: unknown. History of asthma, frequent episodes of bronchitis, chronic bronchitis, bronchiectasis or COPD: No Smoker: No Seasonal/environmental allergies: No The ROS is otherwise negative. The patient's pmh, medications, allergies, and past visits are reviewed. PHYSICAL EXAM: BP 102/62 Pulse 80 Temp 36.4 ?C (97.6 ?F) Resp 16 Wt 63 kg (139 lb) SpO2 98% BMI 20.53 kg/m? General appearance: alert, cooperative, pleasant, in no acute distress Head: Normocephalic Eyes: EOM's intact, conjunctiva pink and moist, no icterus, sclera white, non-injected Ears: Right ear: External ear/canal- Normal, TM - clear with good landmarks. Left ear: External ear/canal- Normal, TM - clear with good landmarks Oropharynx:mild erythema, without exudates present Heart: Negative. RRR without obvious murmur, gallop, or rubs. No ectopy. Lungs: clear to auscultation, without rales or wheeze, good air exchange PAST MEDICAL HISTORY Diagnosis Date Adopted He is a biological second cousin of his adopted mother PERS HX LEAD EXPOSURE 08/31/2006 PAST SURGICAL HISTORY Procedure Laterality Date CIRCUMCISION ALLERGIES Latex MEDICATIONS ondansetron orally disintegrating (ZOFRAN ODT) 4 mg disintegrating tablet Take 1 tablet by mouth every 6 hours as needed for nausea/vomiting. (Patient not taking: Reported on 02/24/2023) ibuprofen (MOTRIN) 600 mg tablet Take 1 tablet by mouth every 6 hours as needed for pain. (Patient not taking: Reported on 02/24/2023) ondansetron orally disintegrating (ZOFRAN ODT) 4 mg [...] Topics Alcohol use: No Drug use: No ASSESSMENT/PLAN: 1. URI, acute - ICD9: 465.9, ICD10: J06.9 (primary diagnosis) 2. Sore throat - ICD9: 462, ICD10: J02.9 Did not want viral testing at this time. Potential red flag symptoms discussed with the patient. Reviewed appropriate action plan to take if red flag symptoms occur. Patient agreeable to treatment plan. Charlotte Patel APRN.[facility] 02-16-2023 Note HNO ID: [id number] Author: Kate Munoz PT Service: ? Author [...] Episode of Care: created on through 11/20/22 [place] in home exercise program. - Met so [...] untimed codes): 26 Total Session Time (minutes): Session Start Time : 1722 Session Stop Time : 1748 Kate Munoz PT [facility] 02-09-2023 Note HNO ID: [id number] Author: Kate Munoz PT Service: ? Author [...] Time : 1720 Session Stop Time : 1758 Kate Munoz PT [facility] 01-19-2023 Note HNO ID: [id number] Author: Gloria Patten APRN.MAYANK Service: ? Author Type: Nurse Practitioner Type: Progress Notes Filed: 01/19/2023 4:07 PM Note Text: This note was created using CardioVIPter. Subjective Jose Mcintosh is a 22 year [...] history is provided by the patient. No speech language pathologist prn was used. URI He complains of cough. [...] distension. Palpations: Abdom (more content not included)... [facility] 01-18-2023 Note HNO ID: [id number] Author: Gloria Patten APRN.MAYANK Service: ? Author Type: Nurse Practitioner Type: Progress Notes Filed: 01/18/2023 1:43 PM Note Text: This note was created using Raise. Dylan Mcintosh is a 22 year old male. 22 year old male with PMH ADHD and depression presents for illness. Acute onset 3 days ago +fatigue +body aches and joint pain +nausea +sore throat + cough +congestion +tobacco usage Has used Tylenol and Motrin +ill contacts The history is provided by the patient. No speech language pathologist prn was used. Flu Like Symptoms This is [...] Findings: No bru (more content not included)... [facility] 01-18-2023 History of Present illness Narrative This note was created using Raise. Subjective Jose Mcintosh is a 22 year old male. 22 year old male with PMH ADHD and depression presents for illness. Acute onset 3 days ago +fatigue +body aches and joint pain +nausea +sore throat + cough +congestion +tobacco usage Has used Tylenol and Motrin +ill contacts The history is provided by the patient. No speech language pathologist prn was used. Flu Like Symptoms This is [...] A/B & RSV NAAT, ROUTINE Gloria Patten APRN.DIRECT CARE WORKER documented in this encounter [facility] 01-12-2023 Note HNO ID: [id number] Author: Kate Munoz, PT Service: ? Author Type: Physical Therapist [...] SPORTS THERAPY PHYSICAL THERAPY TREATMENT NOTE ASSESSMENT: Josesharmila Mcintosh tolerated the session with fatigue and expected muscle soreness. He demonstrated good tolerance to newly added therapeutic exercises. The patient will continue to benefit from ongoing skilled physical therapy to progress toward set goals. Current Frequency: 1x/week Duration: 4 weeks Total Number of Visits Planned: 4 Planned Treatment Interventions: Therapeutic exercise (57201), Neuromuscular re-education (22970), Manual therapy (30644), Therapeutic activities (00714), Self-jail management (55483), Patient/Family/Caregiver Education PLAN FOR NEXT VISIT: Core, [...] Time : 954 Session Stop Time : 1033 Kate Munoz PT [facility] 01-05-2023 Note HNO ID: [id number] Author: Kate Munoz PT Service: ? Author [...] Stop Time : 1045 Kate Munoz PT [facility] 01-05-2023 History of Present illness Narrative Program_ID:[id number] Access Code: [email or web address] URL: [email or web address] Date: 01-05-2023 Prepared By: Kate Munoz Program [...] Kate Munoz PT documented in this encounter [facility] 12-28-2022 Note HNO ID: [id number] Author: Kate Munoz PT Service: ? Author [...] Episode of Care: created on through 11/20/22 [place] in home exercise program. - Met so [...] Patient to be seen for Therapeutic exercise (26264), Neuromuscular re-education (54021), Manual therapy (75223), Therapeutic activities (42775), Self-jail management (78362), Patient/Family/Caregiver Education PLAN FOR NEXT VISIT: PNE and knee strengthening Classification Low Back Pain Subgroup Classification: Graded activity subgroup: recommended visits 12. Core Stabilization Subgroup Classification based on: pain with transitional movements, frequent self-manipulator or long history of manipulation Graded Activity Subgroup Classification based on: exam findings suggestive of central sensitization, diffuse non anatomic pain SUBJECTIVE: Everything hurts the legs. Working at the [employer]. 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 it is [...] Billing Therapeutic Exerci (more content not included)... [facility] 12-22-2022 Note HNO ID: [id number] Author: Shonna Rivera APRN.DIRECT CARE WORKER Service: ? Author Type: Nurse Practitioner Type: [...] expected course of illness Shonna Rivera APRN.CNP [facility] 12-22-2022 Instructions Shonna Rivera APRN.CNP - 12/22/2022 [...] Shonna Rivera APRN.CNP documented in this encounter [facility] 12-22-2022 History of Present illness Narrative Subjective [...] Discussed expected course of illness Shonna Rivera APRN.DIRECT CARE WORKER documented in this encounter [facility] 12-21-2022 Note HNO ID: [id number] Author: Layla Allison PA-C Service: ? Author Type: Physician Dust Box Tender Type: Progress Notes Filed: 12/21/2022 10:00 AM [...] onset reviewed with patient Layla Allison PA-C [facility] 12-08-2022 Note HNO ID: [id number] Author: Jakob Perry APRN.DIRECT CARE WORKER Service: ? Author Type: Nurse Practitioner Type: [...] of care. This note was generated using Sportingo software. It may contain errors in wording, punctuation, or spelling. Jakob Perry APRN.[facility] 12-08-2022 Instructions Jakob Perry APRN.[facility] - 12/08/2022 9:09 AM EDT How [...] concerning to you. documented in this encounter [facility] 12-08-2022 History of Present illness Narrative Subjective [...] of care. This note was generated using Sportingo software. It may contain errors in wording, punctuation, or spelling. Jakob Perry APRN.MAYANK documented in this encounter [facility] 11-03-2022 Note HNO ID: [id number] Author: Doretha Golden APRN.CNP Service: ? Author Type: Nurse Practitioner Type: [...] HENT: Head: Normocephalic and atraumatic. Mouth/Throat: Lips: [place]. Mouth: Mucous membranes are moist. Pharynx: Uvula [...] - STREP A MOLECULAR (POC) Doretha Golden APRN.DIRECT CARE WORKER [facility] 11-03-2022 History of Present illness Narrative Subjective [...] HENT: Head: Normocephalic and atraumatic. Mouth/Throat: Lips: [place]. Mouth: Mucous membranes are moist. Pharynx: Uvula [...] - STREP A MOLECULAR (POC) Doretha Golden APRN.DIRECT CARE WORKER documented in this encounter [facility] 09-25-2022 Note HNO ID: [id number] Author: Kate Munoz PT Service: ? Author [...] Episode of Care: created on through 11/20/22 [place] in home exercise program. Perform standing, walking, [...] Planned: 6 Planned Treatment Interventions: Therapeutic exercise (06388), Neuromuscular re-education (07240), Manual therapy (15788), Therapeutic activities (43072), Self-jail management (11448), Patient/Family/Caregiver Education PLAN FOR NEXT VISIT: PNE [...] Care, Home ex (more content not included)... [facility] 09-25-2022 History of Present illness Narrative Episode [...] Episode of Care: created on through 11/20/22 [place] in home exercise program. Perform standing, walking, [...] Planned: 6 Planned Treatment Interventions: Therapeutic exercise (17351), Neuromuscular re-education (45314), Manual therapy (19339), Therapeutic activities (05187), Self-jail management (42291), Patient/Family/Caregiver Education PLAN FOR NEXT VISIT: PNE [...] Demonstration TREATMENT: PT Treatment Interventions: Therapeutic Exercise, Self-Long Term Management Evaluation Therapeutic Exercise: 1: Discussed therapy goals, exam findings, purpose of the HEP. 2: Hooklying RA activation (PPT) x 10 (Given for home) Skilled Intervention: Patient was educated in proper exercise technique and purpose for exercises. Provided written instruction for home exercise program to facilitate proper performance and compliance. Correct performance of therapeutic exercises was facilitated with verbal and visual cuing. Self-Long Term Management: 1: Discussed reaching out to a [...] Kate Munoz PT documented in this encounter [facility] 09-16-2022 Note HNO ID: [id number] Author: Jasper Coto MD Service: ? Author [...] oral co-administration. Advised having only qualified medical claims processor insert objects into his ear canals. - CIPROFLOXACIN 0.3 %-DEXAMETHASONE 0.1 % EAR DROPS,SUSPENSION Follow up if not improving in the next couple days. Jasper Coto MD [facility] 09-14-2022 Note HNO ID: [id number] Author: Karine Mitchell PA-C Service: ? Author Type: Physician Dust Box Tender Type: Progress Notes Filed: 09/14/2022 3:59 PM Note Text: 21 year old male with c/o requesting to establish as adult patient Having chronic back and knee pain. Needs to figure out if able to work . 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 Identifies pain in knees L>R chronically. Left [...] not been in PT. 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 Longest employment 6 months: left due to not enough hours. Dropped out highschool 11th grade to work. Plans to finish diploma [place] needed to help family and take care [...] over paravertebral muscles (more content not included)... [facility] 07-13-2022 Note HNO ID: [id number] Author: Doretha Golden APRN.DIRECT CARE WORKER Service: ? Author Type: Nurse Practitioner Type: [...] test that was previously ordered. Doretha Golden APRN.[facility] 07-13-2022 Note HNO ID: [id number] Author: RT Oxana(R) Service: Radiology Author Type: [...] RT Oxana(R) July 13, 2022 2:54 PM [facility] 07-07-2022 Note HNO ID: [id number] Author: Tamika Wheeler APRN.DIRECT CARE WORKER Service: ? Author Type: Nurse Practitioner Type: [...] have confirmed and edited as necessary, the [facility] Review of Systems Constitutional: Positive for malaise/fatigue. [...] warranting prompt ER evaluation. Tamika Wheeler APRN.CNP [facility] 07-07-2022 Instructions Tamika Wheeler APRN.[facility] - 07/07/2022 [...] PCP for re-evaluation. documented in this encounter [facility] 07-07-2022 History of Present illness Narrative Subjective [...] have confirmed and edited as necessary, the [facility] Review of Systems Constitutional: Positive for malaise/fatigue. [...] detail warranting prompt ER evaluation. Tamika Wheeler APRN.MAYANK documented in this encounter [facility] 07-04-2022 Note HNO ID: [id number] Author: Shonna Rivera APRN.CNP Service: ? Author Type: Nurse Practitioner Type: [...] Discussed expected course of illness Shonna Rivera APRN.[facility] 06-08-2022 Note HNO ID: [id number] Author: Wanda Haile PA-C Service: ? Author Type: Physician Dust Box Tender Type: Progress Notes Filed: 06/08/2022 10:49 AM Note Text: PEDIATRIC SHOULDER PAIN VISIT SERVICE DATE: 06/08/2022 Jose Mcintosh is a 21 year old male presenting with left shoulder pain. 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 SIGNATURE: Wanda Haile PA-C PATIENT NAME: Jose Mcintosh DATE: June 08, 2022 TIME: 9:17 AM [facility] 06-08-2022 History of Present illness Narrative PEDIATRIC SHOULDER PAIN VISIT SERVICE DATE: 06/08/2022 Jose Mcintosh is a 21 year old male presenting with left shoulder pain. 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 SIGNATURE: Wanda Haile PA-C PATIENT NAME: Jose Mcintosh DATE: June 08, 2022 TIME: 9:17 AM documented in this encounter [facility] 06-06-2022 Note HNO ID: [id number] Author: Jakob Perry APRN.DIRECT CARE WORKER Service: ? Author Type: Nurse Practitioner Type: [...] agrees with plan of care Jakob Perry APRN.[facility] 06-06-2022 History of Present illness Narrative [...] Jakob Perry APRN.MAYANK documented in this encounter [facility] 04-19-2022 Miscellaneous Notes Patient notified of results, [...] 5 additional days. documented in this encounter [facility] 04-17-2022 Note HNO ID: [id number] Author: Shonna Rivera APRN.DIRECT CARE WORKER Service: ? Author Type: Nurse Practitioner Type: [...] Discussed expected course of illness Shonna Rivera APRN.[facility] 04-17-2022 History of Present illness Narrative [...] Shonna Rivera APRN.CNP documented in this encounter [facility] 04-17-2022 Instructions Shonna Rivera APRN.CNP - 04/17/2022 [...] fluids help open respiratory and sinus passages Ray Nasal [place] may offer relief of nasal and head [...] rather than better documented in this encounter [facility] 01-22-2022 Miscellaneous Notes TC to pt. Left a detailed message on a secure line with updates. Blessing Montano LPN Negative for flu and COVID please notify. documented in this encounter [facility] 01-21-2022 Instructions Shonna Rivera APRN.MAYANK - 01/21/2022 2:58 PM EST ASSESSMENT/PLAN: 1. [...] - Discussed expected course of illness Shonna Praisler-Wood, [employer]ONE[employer].DIRECT CARE WORKER Treatment for Viral Upper Respiratory Tract Infections [...] fluids help open respiratory and sinus passages Ray Nasal [place] may offer relief of nasal and head [...] rather than better documented in this encounter [facility] 01-21-2022 History of Present illness Narrative Subjective [...] Discussed expected course of illness Shonna Rivera APRN.DIRECT CARE WORKER documented in this encounter [facility] 10-30-2021 Miscellaneous Notes Left message for patient with negative results.Shanika Coreas LPN Negative for covid please notify. Thank you documented in this encounter [facility] 10-29-2021 History of Present illness Narrative Patient [...] Jasper Coto MD documented in this encounter [facility] 08-21-2021 Miscellaneous Notes Phone call placed patient notified (see prior provider encounter) Patient verbalized understanding, agreed with plan of care. Diamond Tubbs LPN Negative for flu and covid please notify thank you documented in this encounter [facility] 08-20-2021 Instructions Gloria Patten APRN.CNP - 08/20/2021 [...] inability to swallow. documented in this encounter [facility] 08-20-2021 History of Present illness Narrative This note was created using Metafusedriter. Dylan Mcintosh is a 20 year old male. 20 year old male with PMH depression and anxiety presents for illness. Acute onset Wednesday +sore throat +fever + body aches +headache + fatigue Denies cough Denies SOB or CP Denies diarrhea. Slept all day yesterday. 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 States he has not been able to go to work. The history is provided by the patient. No speech language pathologist prn was used. URI There is no chest [...] WITH FLUA+B, ROUTINE-obtained and pending Gloria Patten APRN.DIRECT CARE WORKER documented in this encounter [facility] documented as of this encounter (statuses as of 08/20/2021) [facility] History of Past illness Narrative* Problem Noted Date Resolved Date Nondisplaced fracture of nec k of fifth metacarpal bone of right hand with routine healing 07/15/2015 08/24/2017 Personal history of contact with and (suspected) exposure to lead 08/31/2006 08/24/2017 documented as of this encounter (statuses as of 08/21/2021) [address]23-2016 History of Past illness Narrative* Problem Noted Date Resolved Date Nondisplaced fracture of nec k of fifth metacarpal bone of right hand with routine healing 07/15/2015 08/24/2017 Personal history of contact with and (suspected) exposure to lead 08/31/2006 08/24/2017 documented as of this encounter (statuses as of 10/29/2021) [address]2016 History of Past illness Narrative* Problem Noted Date Resolved Date Nondisplaced fracture of nec k of fifth metacarpal bone of right hand with routine healing 07/15/2015 08/24/2017 Personal history of contact with and (suspected) exposure to lead 08/31/2006 08/24/2017 documented as of this encounter (statuses as of 10/30/2021) [address]2016 History of Past illness Narrative* Problem Noted Date Resolved Date Nondisplaced fracture of nec k of fifth metacarpal bone of right hand with routine healing 07/15/2015 08/24/2017 Personal history of contact with and (suspected) exposure to lead 08/31/2006 08/24/2017 documented as of this encounter (statuses as of 01/21/2022) [address]2016 History of Past illness Narrative* Problem Noted Date Resolved Date Nondisplaced fracture of nec k of fifth metacarpal bone of right hand with routine healing 07/15/2015 08/24/2017 Personal history of contact with and (suspected) exposure to lead 08/31/2006 08/24/2017 documented as of this encounter (statuses as of 02/15/2022) [address]2016 History of Past illness Narrative* Problem Noted Date Resolved Date Nondisplaced fracture of nec k of fifth metacarpal bone of right hand with routine healing 07/15/2015 08/24/2017 Personal history of contact with and (suspected) exposure to lead 08/31/2006 08/24/2017 documented as of this encounter (statuses as of 04/17/2022) [address]2016 History of Past illness Narrative* Problem Noted Date Resolved Date Nondisplaced fracture of nec k of fifth metacarpal bone of right hand with routine healing 07/15/2015 08/24/2017 Personal history of contact with and (suspected) exposure to lead 08/31/2006 08/24/2017 documented as of this encounter (statuses as of 04/19/2022) [address]2016 History of Past illness Narrative* Problem Noted Date Resolved Date Nondisplaced fracture of nec k of fifth metacarpal bone of right hand with routine healing 07/15/2015 08/24/2017 Personal history of contact with and (suspected) exposure to lead 08/31/2006 08/24/2017 documented as of this encounter (statuses as of 06/06/2022) [address]2016 History of Past illness Narrative* Problem Noted Date Resolved Date Nondisplaced fracture of nec k of fifth metacarpal bone of right hand with routine healing 07/15/2015 08/24/2017 Personal history of contact with and (suspected) exposure to lead 08/31/2006 08/24/2017 documented as of this encounter (statuses as of 06/08/2022) [facility] History of Past illness Narrative* Problem Noted Date Resolved Date Nondisplaced fracture of nec k of fifth metacarpal bone of right hand with routine healing 07/15/2015 08/24/2017 Personal history of contact with and (suspected) exposure to lead 08/31/2006 08/24/2017 documented as of this encounter (statuses as of 07/07/2022) [address]2016 History of Past illness Narrative* Problem Noted Date Diagnosed Date Resolved Date Nondisplaced fracture of nec k of fifth metacarpal bone of right hand with routine healing 07/15/2015 08/24/2017 Personal history of contact with and (suspected) exposure to lead 08/31/2006 08/24/2017 documented as of this encounter (statuses as of 09/25/2022) [facility] History of Past illness Narrative* Problem Noted Date Diagnosed Date Resolved Date Nondisplaced fracture of nec k of fifth metacarpal bone of right hand with routine healing 07/15/2015 08/24/2017 Personal history of contact with and (suspected) exposure to lead 08/31/2006 08/24/2017 documented as of this encounter (statuses as of 11/03/2022) [facility] History of Past illness Narrative* Problem Noted Date Diagnosed Date Resolved Date Nondisplaced fracture of nec k of fifth metacarpal bone of right hand with routine healing 07/15/2015 08/24/2017 Personal history of contact with and (suspected) exposure to lead 08/31/2006 08/24/2017 documented as of this encounter (statuses as of 12/08/2022) [facility] History of Past illness Narrative* Problem Noted Date Diagnosed Date Resolved Date Nondisplaced fracture of nec k of fifth metacarpal bone of right hand with routine healing 07/15/2015 08/24/2017 Personal history of contact with and (suspected) exposure to lead 08/31/2006 08/24/2017 documented as of this encounter (statuses as of 12/22/2022) [facility] History of Past illness Narrative* Problem Noted Date Diagnosed Date Resolved Date Nondisplaced fracture of nec k of fifth metacarpal bone of right hand with routine healing 07/15/2015 08/24/2017 Personal history of contact with and (suspected) exposure to lead 08/31/2006 08/24/2017 documented as of this encounter (statuses as of 01/05/2023) [facility] History of Past illness Narrative* Problem Noted Date Diagnosed Date Resolved Date Nondisplaced fracture of nec k of fifth metacarpal bone of right hand with routine healing 07/15/2015 08/24/2017 Personal history of contact with and (suspected) exposure to lead 08/31/2006 08/24/2017 documented as of this encounter (statuses as of 01/19/2023) [facility] Strep pharyngitis- Primary Streptococcal sore throat Fever, unspecified fever [facility] Gastroenteritis- Primary Other and unspecified noninfectious gastroenteritis and colitis [facility] Diagnosis Sore throat- Primary Acute pharyngitis Viral URI Acute upper respiratory infections of unspecified site [facility] Nausea- Primary Nausea alone Flu-like symptoms Other general symptoms Fever, unspecified fever cause documented in this encounter [facility] note* Diagnosis Acute pain of left shoulder- Primary documented in [place] encounter [place] [facility] Diagnosis Acute pain of left shoulder- Primary documented in this encounter [facility]* Diagnosis Sore throat- Primary Acute pharyngitis Vomiting without nausea, unspecified vomiting type Viral illness Unspecified viral infection, in conditions classified elsewhere and of unspecified site documented in this encounter [facility]* Diagnosis Joint laxity Other joint derangement, not elsewhere classified, unspecified site Chronic pain of both knees Chronic midline low back pain without sciatica documented in this encounter [facility]* Diagnosis Sore throat- Primary Acute pharyngitis documented in this encounter [facility]* Diagnosis Sore throat- Primary Acute pharyngitis Viral illness Unspecified viral infection, in conditions classified elsewhere and of unspecified site documented in this encounter [facility]* Diagnosis Nausea and vomiting, unspecified vomiting type- Primary Viral illness Unspecified viral infection, in conditions classified elsewhere and of unspecified site documented in this encounter [facility]* Diagnosis Chronic back pain, unspecified back location, unspecified back pain laterality- Primary Joint laxity Other joint derangement, not elsewhere classified, unspecified site documented in this encounter [facility]* Diagnosis URI, acute- Primary Acute upper respiratory infections of unspecified site documented in this encounter [facility] Summary Purpose Family History No Family History Records FoundNo Family History Records FoundNo Family History Records Found Advance Directives No Advanced Directives Records FoundNo Advanced Directives Records FoundNo Advanced Directives Records [...] EA 15 MIN. Kate Munoz, PT [address] [place] [address] [facility] [address] [place] [address] Referral ID Status Reason Start Date Expiration Date Visits Requested Visits Authorized [id number] Pending Review PCP Requested Referral Auto-Generate d Referral 09/25/2022 12/24/2022 1 1 Additional Source Comments (unrecognized sect ion and content) No Status Records FoundNo Status Records FoundNo Status Records Found INFORMATION SOURCE (unrecogn ized section and content) DATE CREATED AUTHOR AUTHOR'S ORGANIZ ATION 02/25/2023 [facility] DATE CREATED AUTHOR AUTHOR'S ORGANIZ ATION 02/26/2023 [facility] Source Comments (unrecognize d section and content) In the event this informatio n is protected by the Federal Confidentiality of Alcohol and Drug Abuse Patient Records regulations: The Federal rules restrict any use of the information to criminally investigate or prosecute any alcohol or drug abuse patient.[facility] the event this information is protected by the Federal Confidentiality of Alcohol and Drug Abuse Patient Records regulations: The Federal rules restrict any use of the information to criminally investigate or prosecute any alcohol or drug abuse patient.[facility] the event this information is protected by the Federal Confidentiality of Alcohol and Drug Abuse Patient Records regulations: The Federal rules restrict any use of the information to criminally investigate or prosecute any alcohol or drug abuse patient.[facility] the event this information is protected by the Federal Confidentiality of Alcohol and Drug Abuse Patient Records regulations: The Federal rules restrict any use of the information to criminally investigate or prosecute any alcohol or drug abuse patient.[facility] the event this information is protected by the Federal Confidentiality of Alcohol and Drug Abuse Patient Records regulations: The Federal rules restrict any use of the information to criminally investigate or prosecute any alcohol or drug abuse patient.[facility] the event this information is protected by the Federal Confidentiality of Alcohol and Drug Abuse Patient Records regulations: The Federal rules restrict any use of the information to criminally investigate or prosecute any alcohol or drug abuse patient.[facility] the event this information is protected by the Federal Confidentiality of Alcohol and Drug Abuse Patient Records regulations: The Federal rules restrict any use of the information to criminally investigate or prosecute any alcohol or drug abuse patient.[facility] the event this information is protected by the Federal Confidentiality of Alcohol and Drug Abuse Patient Records regulations: The Federal rules restrict any use of the information to criminally investigate or prosecute any alcohol or drug abuse patient.[facility] the event this information is protected by the Federal Confidentiality of Alcohol and Drug Abuse Patient Records regulations: The Federal rules restrict any use of the information to criminally investigate or prosecute any alcohol or drug abuse patient.[facility] the event this information is protected by the Federal Confidentiality of Alcohol and Drug Abuse Patient Records regulations: The Federal rules restrict any use of the information to criminally investigate or prosecute any alcohol or drug abuse patient.[facility] the event this information is protected by the Federal Confidentiality of Alcohol and Drug Abuse Patient Records regulations: The Federal rules restrict any use of the information to criminally investigate or prosecute any alcohol or drug abuse patient.[facility] the event this information is protected by the Federal Confidentiality of Alcohol and Drug Abuse Patient Records regulations: The Federal rules restrict any use of the information to criminally investigate or prosecute any alcohol or drug abuse patient.[facility] the event this information is protected by the Federal Confidentiality of Alcohol and Drug Abuse Patient Records regulations: The Federal rules restrict any use of the information to criminally investigate or prosecute any alcohol or drug abuse patient.[facility] the event this information is protected by the Federal Confidentiality of Alcohol and Drug Abuse Patient Records regulations: The Federal rules restrict any use of the information to criminally investigate or prosecute any alcohol or drug abuse patient.[facility] the event this information is protected by the Federal Confidentiality of Alcohol and Drug Abuse Patient Records regulations: The Federal rules restrict any use of the information to criminally investigate or prosecute any alcohol or drug abuse patient.[facility] the event this information is protected by the Federal Confidentiality of Alcohol and Drug Abuse Patient Records regulations: The Federal rules restrict any use of the information to criminally investigate or prosecute any alcohol or drug abuse patient.[facility] the event this information is protected by the Federal Confidentiality of Alcohol and Drug Abuse Patient Records regulations: The Federal rules restrict any use of the information to criminally investigate or prosecute any alcohol or drug abuse patient.[facility] Reason for Visit (unrecogniz ed section and [...] [M54.50, G89.29] Procedures NEW PT SPINE Karine Mitchell, MARRY [address] [place] [address] Kate Munoz, PT [address] [place] [address] Referral ID Status Reason Start Date Expiration Date Visits Re quested Visits Authorized [id number] Closed 09/25/2022 02/21/2023 1 1 Reason Comments [...] back pain without sciatica Karine Mitchell PA-C [address] [place] [address] Kate Munoz, PT [address] [place] [address] Referral ID Status Reason Start Date Expiration Date V isits Requested Visits Authorized [id number] Authorized 10/29/2022 01/13/2023 6 6 Reason Comments Cough Congestion, ST, fati satnam, nausea, bodyaches x3 days Care Teams (unrecognized sec tion and content) Relay Tester Helper Relationship Specialty [place] [address] [place] [id number] PCP - General 02 Relay Tester Helper Relationship Specialty Start Date End Date Andre Holm MD [address] [place] [id number] PCP - General 02 Relay Tester Helper Relationship Specialty Start Date End Date Andre Holm MD [address] [place] [address] PCP - General 02 Relay Tester Helper Relationship Specialty Start Date End Date Andre Holm MD [address] [place] [id number] PCP - General 02 Relay Tester Helper Relationship Specialty Start Date End Date Andre Holm MD [address] [place] [id number] PCP - General 02 Relay Tester Helper Relationship Specialty Start Date End Date Andre Holm MD [address] [place] [address] PCP - General 02 FOR RECORDS PERTAINING [...] BE BASED ON THE PRIMARY CLINICAL RECORDS. [facility] [employer] [facility]. provides no warranty or guarantee of the accuracy or completeness of information in this document.
== END 2023-04-01 18:50 | disposition home or self-care (01) ==
LOC: ED 18:26
PROVIDERS: Emergency Provider Emergency Medicine; Visit Provider Emergency Medicine
DX: S60.221A Contusion of right hand, initial encounter (principal); M79.641 Pain in right hand; F17.210 Nicotine dependence, cigarettes, uncomplicated; W22.8XXA Striking against or struck by other objects, initial encounter
CPT/HCPCS: 73130; 99282

== ENCOUNTER 2023-09-23 17:36 | Emergency (ER) | payer SELFPAY ==
[2023-09-23 17:36] VITALS: BP 114/87; PULSE 99; RESP 16; TEMP 36.6; O2SAT 95; BMI 19.4
--- NOTE | 2023-09-23 19:28 | EX.ED.DYSGE1 ---
HPI History of Present Illness Chief Complaint: Lower Extremity Injury Detail of Chief Complaint: Chronic left knee pain Informant: patient Onset/Context/Timing Onset: Month(s) Context: - (Worse after reported fall.) Timing: Continuous Quality: Pain this is slow for you Location: Left knee Current Severity: Mild Worsened by: Uncertain Relieved by: Nothing Associated Symptoms Associated Symptoms: None Narrative Narrative: Patient has chronic left knee pain. Patient initially told me he had no trauma. He then states he had a fall. He states he told his boss he had a fall. He was sent into the ER for evaluation. Patient's been seen by multiple doctors and the cause of his pain is unknown. Nothing alleviates his pain. He has had imaging in the past which reveals no abnormality. Prior similar symptoms: Yes Recent Illness/Hospitalization: No PFSH REPLACED BY [facility] Medical History Knee pain Back pain Home Medications ?Medication ?Instructions ?Recorded ?Last Taken ?Type NK 02/19/23 Unknown History Allergy/AdvReac Type Severity Reaction Status Date / Time latex Allergy Rash Verified 09/23/23 17:37 Social History Smoking Status: Current some day smoker tobacco type: cigarettes ROS ROS ED Constitutional Constitutional ED: Denies chills, fever(s), subjective or sweats Musculoskeletal Musculoskeletal: Reports other Details: Left knee pain without swelling. There is no history of trauma. No history of gout or pseudogout. ; Denies arthralgias, back pain, myalgias or neck pain Integumentary Denies rash Neurologic Neurologic: Denies paresthesias or weakness Hematologic/Lymphatic Hematologic/Lymphatic: Reports systems reviewed and no addt'l complaints, except as documented EXAM Physical Exam Const Vital Signs: 09/23/23 17:36 Temperature 98 F Temperature Source Temporal Pulse Rate 99 Respiratory Rate 16 Blood Pressure 114/87 H Blood Pressure Mean 96 Pulse Ox 95 Oxygen Delivery Method Room Air Positive well nourished and well developed General Appearance ED: well developed and NAD; Negative for pallor HEENT Reports moist mucous membranes HEENT Narrative: Head is atraumatic normocephalic. Eyes PERRL and EOMs intact bilaterally Neck no lymphadenopathy, supple and no JVD Resp normal respiratory effort Cardio regular rate and regular rhythm Extremity normal to inspection Extremity Narrative: Full extension and flexion. Knee is not swollen. The patella is no There is no effusion. Is no laxity varus valgus stress testing. Kelly's test and modified Eliezer's test are negative. There is no pain or fullness in the popliteal fossa. DP and PT pulse are palpable. Neuro oriented x3 and CN's II-XII intact bilaterally Sensorium / Orientation: alert Psych mental status grossly normal Skin no rashes or lesions noted, no wounds and skin turgor normal General Skin Exam: elasticity normal; Negative for jaundice or pallor MDM MDM MDM Narrative Medical decision making narrative: Patient with chronic knee pain. Since patient had imaging the past and there is no history of trauma there is no reason to reimage. His exam is unremarkable. Discharge Plan Triage Chief Complaint: Lower Extremity Injury ED Provider: Walter Wheatley Dx/Rx/DC Orders Clinical Impression: Knee pain, left Instructions: ED Knee Pain of Uncertain Cause Prescriptions: No Action NK Primary Care Provider: Care Physician,No Primary Referrals: Care Physician,No Primary [Primary Care Provider] - Doctor,Your [Non-Staff] - 1-2 Weeks Activity Restrictions/Additional Instructions: Recommend contacting your doctor. They have your doctors on your insurance card. Recommend ice and either Tylenol or ibuprofen for your pain. Print Language: Israeli Disposition Disposition: Home, Self Care
--- NOTE | 2023-09-23 19:34 | ED.RN ---
PT WAS OBSERVED WALKING OUT AFTER REGISTERED. DR. DOUG WALL.
== END 2023-09-23 19:37 | disposition left against medical advice (07) ==
PROVIDERS: Emergency Provider Emergency Medicine; Visit Provider Emergency Medicine
DX: M25.562 Pain in left knee (principal); F17.210 Nicotine dependence, cigarettes, uncomplicated; G89.29 Other chronic pain
CPT/HCPCS: 99282